=== PATIENT | female | born 1965 | race Caucasian/White ===

== ENCOUNTER → 2020-05-23 14:31 | Outpatient (BNVA) | payer BC, SELFPAY | PROVIDERS: PCP Family Medicine; Referring Provider Family Medicine; Visit Provider Nurse Practitioner Family | DX: Z76.89 Persons encountering health services in other specified circumstances (principal) ==

== ENCOUNTER 2020-09-12 07:12 | Emergency (ER) | payer BC, SELFPAY ==
--- NOTE | 2020-09-12 08:15 | XR_ITS ---
EXAMINATION: LEFT FOOT AND ANKLE X-RAY CLINICAL INFORMATION: Pain post fall COMPARISON: None TECHNIQUE: 3 views of the left foot and 3 views of the left ankle FINDINGS: Left foot: There are postoperative osteotomy changes of the first metatarsal head. No fracture or dislocation is seen. There are mild degenerative changes of the PIP joint of the fifth toe. There is a small calcaneal spur at the Achilles tendon insertion. Left ankle: Bone alignment is normal. No fracture or dislocation is seen. The ankle mortise is normal. Soft tissues are normal. XR/XR ankle LT 2V IMPRESSION: Left foot: Postoperative change from first metatarsal head osteotomy. Degenerative changes at the PIP joint of the fifth toe. Small calcaneal spur at the Achilles tendon insertion. Left ankle: Unremarkable exam.
--- NOTE | 2020-09-12 08:15 | XR_ITS ---
EXAMINATION: LEFT FOOT AND ANKLE X-RAY CLINICAL INFORMATION: Pain post fall COMPARISON: None TECHNIQUE: 3 views of the left foot and 3 views of the left ankle FINDINGS: Left foot: There are postoperative osteotomy changes of the first metatarsal head. No fracture or dislocation is seen. There are mild degenerative changes of the PIP joint of the fifth toe. There is a small calcaneal spur at the Achilles tendon insertion. Left ankle: Bone alignment is normal. No fracture or dislocation is seen. The ankle mortise is normal. Soft tissues are normal. XR/XR foot LT min 3V IMPRESSION: Left foot: Postoperative change from first metatarsal head osteotomy. Degenerative changes at the PIP joint of the fifth toe. Small calcaneal spur at the Achilles tendon insertion. Left ankle: Unremarkable exam.
[2020-09-12 09:03] VITALS: BP 103/67; PULSE 76; RESP 16; TEMP 37.2; O2SAT 98; BMI 38.7
--- NOTE | 2020-09-12 09:13 | ED.LOWEXIN ---
HPI - Extremity Injury (Lower) General Chief Complaint: Extremity Injury, Lower <Ehsan Romo NP - Last Filed: 09/12/20 09:20> Stated Complaint: fall, lt ft injury <Ehsan Romo NP - Last Filed: 09/12/20 09:20> Time Seen by Provider: 09/12/20 08:15 <Ehsan Romo NP - Last Filed: 09/12/20 09:20> Source: family <Ehsan Romo NP - Last Filed: 09/12/20 09:20> Mode of arrival: wheelchair <Ehsan Romo NP - Last Filed: 09/12/20 09:20> Limitations: no limitations <Ehsan Romo NP - Last Filed: 09/12/20 09:20> History of Present Illness HPI Narrative: Super fall onto the left foot while going for cigarette. Denies any other injury. Pain only in the left foot ankle area. <Ehsan Romo NP - Last Filed: 09/12/20 09:20> MD complaint: foot injury <Ehsan Romo NP - Last Filed: 09/12/20 09:20> Onset (ago): minute(s) <Ehsan Romo NP - Last Filed: 09/12/20 09:20> Type of Injury: unknown <Ehsan Romo NP - Last Filed: 09/12/20 09:20> Place: home <Ehsan Romo NP - Last Filed: 09/12/20 09:20> Severity: moderate <Ehsan Romo NP - Last Filed: 09/12/20 09:20> Relieving factors: cold therapy and immobilization <Ehsan Romo NP - Last Filed: 09/12/20 09:20> Exacerbating factors: movement <Ehsan Romo NP - Last Filed: 09/12/20 09:20> Context: fall <Ehsan Romo NP - Last Filed: 09/12/20 09:20> Other symptoms: none <Ehsan Romo NP - Last Filed: 09/12/20 09:20> Related Data Home Medications: Home Medications Medication Instructions Recorded Confirmed atorvastatin 10 mg tablet 10 mg PO QPM 05/18/20 05/18/20 Previous Rx's Medication Instructions Recorded peg 3350-electrolytes 227.1 240 ml PO Q10M #1 ea 05/25/20 gram-21.5 gram-6.36gram oral powder packet levothyroxine 200 mcg tablet 200 mcg PO DAILY 90 Days #90 tab 06/11/20 paroxetine HCl 40 mg tablet 40 mg PO DAILY 90 Days #90 tab 08/19/20 fluticasone 250 mcg-salmeterol 50 1 ea PO BID #60 ea 08/29/20 mcg/dose blistr powdr for inhalation <Ehsan Romo NP - Last Filed: 09/12/20 09:20> Allergies/Adverse Reactions: Allergies Allergy/AdvReac Type Severity Reaction Status Date / Time No Known Allergies Allergy Verified 05/23/20 15:16 <Ehsan Romo NP - Last Filed: 09/12/20 09:20> Review of Systems Review of Systems: Constitutional: No Weight loss, No Fever, No Chills, No Night Sweats, No Fatigue, No Malaise ENT/Mouth: No Hearing loss, No Ear Pain, No Nasal Congestion, No Sinus Pain, No Hoarseness, No sore throat, No Rhinorrhea, No Swallowing Difficulty Eyes: No Eye Pain, No Swelling, No Redness, No Foreign Body, No Discharge, No Vision Changes Cardiovascular: No Chest Pain, No SOB, No Dyspnea on Exertion, No Orthopnea, No Edema, No Palpitations Respiratory: Negative Gastrointestinal: Negative Genitourinary: Negative Musculoskeletal: No joint pain, No Myalgias, No Joint Swelling, left foot pain status post fall as noted HPI Skin: No Skin Lesions, No rash Neuro: No Weakness, No Numbness, No Paresthesias, No Loss of Consciousness, No Dizziness, No Headache Psych: No Social Issues Heme/Lymph: Negative Endocrine: Negative <Ehsan Romo NP - Last Filed: 09/12/20 09:20> Yes all other systems are reviewed and are negative <Ehsan Romo NP - Last Filed: 09/12/20 09:20> [facility] Past Medical History Medical History: Medical History (Updated 09/12/20 @ 09:20 by Ehsan Romo NP) Fatty liver Hyperlipidemia Hypothyroidism <Ehsan Romo NP - Last Filed: 09/12/20 09:20> Surgical History: Surgical History ([facility]23[facility]20 [facility] 14:11 [facility] H/O foot surgery History of cholecystectomy History of tonsillectomy History of tubal ligation <Ehsan Romo NP - Last Filed: 09/12/20 09:20> Family History Family History: Family History (Updated 05/23/20 @ 13:52 [facility] Father No problems noted. Mother Lung cancer Smoker Maternal Grandmother Breast CA <Ehsan Romo NP - Last Filed: 09/12/20 09:20> Social History Social History: Social History (Updated 05/23/20 @ 15:18 by Renea Lagunas [facility]) Alcohol intake: never Smoking Status: Current every day smoker Tobacco Type: Cigarette Cigarettes Per Day: 10 Smoked in Last 30 Days: Yes Use of substances other than those prescribed or required for medical reasons: No Advance Directives: No Advance Directives Information Provided: No <Ehsan Romo NP - Last Filed: 09/12/20 09:20> Physical Exam Vital Signs: Vital Signs: Last Vital Signs Temp 99.0 F 09/12/20 09:03 Pulse 76 09/12/20 09:03 Resp 16 09/12/20 09:03 BP 103/67 09/12/20 09:03 Pulse Ox 98 09/12/20 09:03 Body Mass Index 38.7 Reviewed <Ehsan Romo NP - Last Filed: 09/12/20 09:20> Vital Signs: Last Vital Signs Temp 99.0 F 09/12/20 09:03 Pulse 76 09/12/20 09:03 Resp 16 09/12/20 09:03 BP 103/67 09/12/20 09:03 Pulse Ox 98 09/12/20 09:03 Body Mass Index 38.7 <Malik Ventura MD - Last Filed: 09/12/20 11:29> Const: General: cooperative and healthy appearing; No acute distress or intoxicated appearing <Ehsan Romo NP - Last Filed: 09/12/20 09:20> Nutritional Appearance: average body habitus <Ehsan Romo NP - Last Filed: 09/12/20 09:20> Orientation/consciousness: patient oriented x3 <Ehsan Romo NP - Last Filed: 09/12/20 09:20> HENMT: Head: Yes normal to inspection <[facility] - Last Filed: 09/12/20 09:20> Ears: hearing grossly normal bilaterally <[facility] - Last Filed: 09/12/20 09:20> Eyes: General: appearance normal, both eyes and all related structures <[facility] Last Filed: 09/12/20 09:20> Visual Hutchins: normal visual hutchins by confrontation <[facility] - Last Filed: 09/12/20 09:20> Neck: Neck: Yes normal visual inspection, No positive Brudzinski's sign, No positive Kernig's sign and No tender <[facility] - Last Filed: 09/12/20 09:20> Thyroid: Thyroid normal <[facility] - Last Filed: 09/12/20 09:20> Chest: Chest palpation & inspection: normal inspection of the chest <[facility] Last Filed: 09/12/20 09:20> Resp: Effort & Inspection: normal respiratory effort <[facility] - Last Filed: 09/12/20 09:20> Cardio: Jugular venous distension: no JVD <[facility] - Last Filed: 09/12/20 09:20> : General: Yes no CVA tenderness <[facility] - Last Filed: 09/12/20 09:20> Back/Spine/Pelvis: Back: no CVA tenderness <[facility] Last Filed: 09/12/20 09:20> Skin: General skin exam: no rashes or lesions noted <[facility] - Last Filed: 09/12/20 09:20> Neuro: General: patient oriented x3 <[facility] - Last Filed: 09/12/20 09:20> Extrem: General: Yes normal to inspection <[facility] Romo - Last Filed: 09/12/20 09:20> Course Course Course Narrative: I have reviewed the chart <Malik Ventura MD - Last Filed: 09/12/20 11:29> MDM - Extremity Injury (Lower) MDM Narrative Medical decision making narrative: AP consistent with strain/contusion type injury to the left foot. X-rays of ankle foot negative for acute pathology. X-ray of crutches and supportive care return follow-up precautions. Given that were in the middle of the winter I did review with her safety as it relates to the crutch use. <Ehsan Romo NP - Last Filed: 09/12/20 09:20> Differential Diagnosis Differential diagnosis: Likely ankle sprain and strain; Unlikely fracture of toe and ankle fracture <Ehsan Romo NP - Last Filed: 09/12/20 09:20> Medical Records Attestation: I reviewed the patient's medical records. <Ehsan Romo NP - Last Filed: 09/12/20 09:20> Lab Data Attestation: I reviewed the patient's lab results. <Ehsan Romo NP - Last Filed: 09/12/20 09:20> Imaging Data Ankle/foot: Radiologist's impression: [address] [id number] ReportSigned Patient: Irving Rose#: [id number]: 1965Acct:[id number]/Sex: 55 / FADM Date: 09/12/20Loc: EDAttending Dr: Ordering Physician: Ehsan Romo NP Date of Service: 09/12/20 Procedure(s): XR ankle LT 2V Accession Number(s): [id number] cc: Ehsan Romo NP~ EXAMINATION: LEFT FOOT AND ANKLE X-RAY CLINICAL INFORMATION: Pain post fall COMPARISON: None TECHNIQUE: 3 views of the left foot and 3 views of the left ankle FINDINGS: Left foot: There are postoperative osteotomy changes of the first metatarsal head. No fracture or dislocation is seen. There are mild degenerative changes of the PIP joint of the fifth toe. There is a small calcaneal spur at the Achilles tendon insertion. Left ankle: Bone alignment is normal. No fracture or dislocation is seen. The ankle mortise is normal. Soft tissues are normal. XR/XR ankle LT 2V IMPRESSION: Left foot: Postoperative change from first metatarsal head osteotomy. Degenerative changes at the PIP joint of the fifth toe. Small calcaneal spur at the Achilles tendon insertion. Left ankle: Unremarkable exam. Dictated By:VIRI BROWN MDSigned By:<Electronically signed by VIRI BROWN MD in OV>09/12/20901 DD/ TD/TT: Harvest Worker: SHAJI <Ehsan Romo NP - Last Filed: 09/12/20 09:20> Discharge Plan Discharge Clinical Impression: Strain of foot <Ehsan Romo NP - Last Filed: 09/12/20 09:20> Patient Disposition: Home, Self-Care <Ehsan Romo NP - Last Filed: 09/12/20 09:20> Instructions: Ankle Strain (ED) <Ehsan Romo NP - Last Filed: 09/12/20 09:20> Additional Instructions: Cold compresses Gentle stretching Hira wrap for comfort Crutches for comfort Return if any concerns or worsening symptoms [id number] Tylenol/ibuprofen for pain discomfort Thank you <Ehsan Romo NP - Last Filed: 09/12/20 09:20> Prescriptions: No Action Golytely 227.1-21.5-6.36 gram powder in packet 240 ml PO Q10M Qty: 1 RF: 0 levothyroxine 200 mcg tablet 200 mcg PO DAILY 90 Days Qty: 90 RF: 4 paroxetine HCl [Paxil] 40 mg tablet 40 mg PO DAILY 90 Days Qty: 90 RF: 3 fluticasone propion-salmeterol [Wixela Inhub] 250-50 mcg/dose blister with device 1 ea PO BID Qty: 60 RF: 4 atorvastatin 10 mg tablet 10 mg PO QPM RF: 0 <Ehsan Romo NP - Last Filed: 09/12/20 09:20> Referrals: Jone Lomeli MD [Primary Care Provider] - 1 week <Ehsan Romo NP - Last Filed: 09/12/20 09:20> Interventions: ED Discharge Assessment Last Done: 09/12/20 09:40 <Ehsan Romo NP - Last Filed: 09/12/20 09:20> Discharge Date/Time: 09/12/20 09:40 <Ehsan Romo NP - Last Filed: 09/12/20 09:20>
== END 2020-09-12 09:40 | disposition home or self-care (01) ==
PROVIDERS: Emergency Provider Emergency Medicine; PCP Family Medicine
DX: S96.912A Strain of unspecified muscle and tendon at ankle and foot level, left foot, initial encounter (principal); W01.0XXA Fall on same level from slipping, tripping and stumbling without subsequent striking against object, initial encounter; M77.32 Calcaneal spur, left foot; F17.210 Nicotine dependence, cigarettes, uncomplicated; Y93.89 Activity, other specified; Y92.017 Garden or yard in single-family (private) house as the place of occurrence of the external cause; Y99.9 Unspecified external cause status
CPT/HCPCS: 73600; 73630; 99283

== ENCOUNTER 2021-02-14 14:48 | Outpatient (REF) | payer BC, SELFPAY ==
--- NOTE | ~2021-02-14 | MM_ITS ---
EXAMINATION: MM SCREENING DIGITAL BREAST TOMOSYNTHESIS, BILATERAL CLINICAL INFORMATION: Screening. Asymptomatic. The lifetime risk of breast cancer based on the Tyrer-Cuzick Model is 10.8%. COMPARISON: Mammography: September 17, 2019 and studies dating back to October 24, 2011 TECHNIQUE: Digital breast tomosynthesis is performed in both the craniocaudal and mediolateral oblique views along with computer-aided detection (CAD). Synthesized 2D images are generated from the tomosynthesis. FINDINGS: The breasts are heterogeneously dense, which may obscure small masses (ACR BI-RADS breast composition Category c). There are no significant masses, abnormal calcifications, or other abnormalities. MM/MM tomosynthesis screening BI IMPRESSION: There are no significant changes from prior study. ASSESSMENT: BI-RADS 1: Negative RECOMMENDATION: Routine annual mammography screening. This patient's information was entered into a reminder system with a target due date for their next mammogram.
== END 2021-02-14 14:49 | disposition home or self-care (01) ==
LOC: HO.MAMMO 14:48
PROVIDERS: PCP Family Medicine; Visit Provider Family Medicine
DX: Z12.31 Encounter for screening mammogram for malignant neoplasm of breast (principal)
CPT/HCPCS: 77063; 77067

== ENCOUNTER 2021-04-13 08:47 | Outpatient (REF) | payer BC, SELFPAY ==
[2021-04-13 10:57] LABS: Alanine Aminotransferase 27 U/L (0-31); Albumin Level 4.2 g/dL (3.5-5.0); Alkaline Phosphatase 108 U/L (39-117); Anion Gap 13 (12-20); Aspartate Amino Transferase 24 U/L (5-31); Bilirubin Total 1.1 mg/dL (0.0-1.0); Blood Urea Nitrogen 13 mg/dL (9-16); Carbon Dioxide 28 mmol/L (22-29); Chloride 106 mmol/L (96-108); Cholesterol 169 mg/dL; Estimated Glomerular Filt Rate 52; Glucose Fasting 91 mg/dL (60-99); HDL Cholesterol 37 mg/dL; LDL Cholesterol Calculated 103 mg/dl; Potassium 5.4 mmol/L (3.3-5.1); Sodium 142 mmol/L (135-145); Total Protein 6.5 g/dL (6.5-8.0); Triglycerides 146 mg/dL
[2021-04-13 10:58] LABS: Glucose Urine UA NEG (NEG); Leukocyte Esterase Urine NEG (NEG); Nitrite Urine NEG (NEG); Urine Blood NEG (NEG); Urine Ketones NEG (NEG); Urine Protein NEG (NEG-TRACE)
[2021-04-13 11:02] LABS: Appearance Urine CLEAR; Color Urine YELLOW
[2021-04-13 11:17] LABS: TSH reflex Free T4 0.79 uIU/mL (0.32-4.0)
== END 2021-04-13 08:48 | disposition home or self-care (01) ==
LOC: HO.LAB 08:47
PROVIDERS: PCP Family Medicine; Visit Provider Family Medicine
DX: Z00.00 Encounter for general adult medical examination without abnormal findings (principal)
CPT/HCPCS: 36415; 80053; 80061; 81003; 84443

== ENCOUNTER 2021-05-27 11:09 | Day surgery (SDC) | payer BC, SELFPAY ==
[2021-05-22 09:58] VITALS: BMI 37.9
--- NOTE | 2021-05-23 14:09 | HO.ANESPROP2 ---
Documented by User: Bethany Moon NP 05/23/21 14:09 HPI - Anesthesia Eval Consult details Narrative: 56yo F for Colonoscopy PMFSH Active Problems Active Problems: All Active Problems (Updated 05/22/21 @ 10:02 by Tia Baker, KENDELL) Moderate left ankle sprain (Acute) Annual visit for general adult medical examination without abnormal findings (Acute) Breast cancer screening by mammogram (Acute) Screening for colon cancer (Acute) Skin tag (Acute) Constipation (Acute) Diarrhea (Acute) RUQ abdominal tenderness (Acute) Hyperlipidemia (Acute) Hypothyroidism (Acute) Past Medical History Medical History Anxiety Asthma Fatty liver Hyperlipidemia Hypothyroidism Smoker Family History Family History Father No problems noted. 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 Meds Allergies Allergy/AdvReac Type Severity Reaction Status Date / Time No Known Allergies Allergy Verified 05/22/21 09:50 Home Medications Medication Instructions Recorded Confirmed Last Taken Type peg 3350-electrolytes 227.1 240 ml PO Q10M ea 09/27/20 Unknown History gram-21.5 gram-6.36gram oral powder packet (Golytely) Exam Exam Date and Time: May 23, 2021 1409 Height,Weight and Vital Signs: Height 5 ft 6 in Weight 106.594 kg Assessment and Plan Assessment Anesthesia Assessment: Chart Reviewed Documented by User: Aster Taylor MD 05/27/21 12:51 PMFSH Past Medical History Medical History Anxiety Asthma Fatty liver Hyperlipidemia Hypothyroidism Smoker Functional capacity: independent ambulation Patient : No Family History Family History Father No problems noted. Mother Lung cancer Smoker Maternal Grandmother Breast CA Family history of problems with anesthesia: No Surgical History Surgical History H/O foot surgery History of cholecystectomy History of tonsillectomy History of tubal ligation Social History Social History Housing: House Alcohol intake: never Patient Tobacco Use Status: Current everyday Tobacco user Tobacco use type: Cigarette Cigarettes Per Day: 7 Years Smoked: 35 Are you DNR?: No Advance Directives: No (will bring HCP) Advance Directives Information Provided: No Advance Directives on File: No Patient : No Current occupational status: employed 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
[2021-05-27 12:15] VITALS: BP 122/75; PULSE 74; RESP 18; TEMP 36.2; O2SAT 96
[2021-05-27] MEDS: Lactated Ringers 1,000 ML 100 ML IVCONT (12:19)
--- NOTE | 2021-05-27 12:32 | MHC.SHP ---
Pre-Procedural Eval Section A Date of Service: 05/27/21 Section B Chief Complaint: screening Relevant Family History (Specify if Yes): No Relevant Social History: Tobacco Use Present Medications: see Short Stay Collaborative assessment Medical History: Significant History (Anxiety Asthma Fatty liver Hyperlipidemia Hypothyroidism Smoker) History of Previous Operations: Relevant previous surgery/procedure and date(s) (H/O foot surgery History of cholecystectomy History of tonsillectomy History of tubal ligation) Allergies: Allergies Allergy/AdvReac Type Severity Reaction Status Date / Time No Known Allergies Allergy Verified 05/22/21 09:50 Review of Systems Sugical H&P ROS: Negative: Constitution, Cardiovascular, Respiratory, Neurological, Psychiatric, Hem-Onc, Allergic/Immunologic, Gastrointestinal, Genitourinary, Musculoskeletal, Integumentary, Endocrine and Eyes/Ears/Nose/Throat Exam Surgical H&P Exam: Normal: HEENT, Normal: Heart, Normal: Lungs, Normal: Extremities, Normal: Abdomen, Normal: Skin and Normal: Neurological Plan Diagnosis/Plan: Unchanged I have reviewed the history and physical and performed a pertinent physical examination on my patient. No changes have occurred unless specified.
[2021-05-27 12:52] LABS: Potassium 4.4 mmol/L (3.3-5.1)
--- NOTE | 2021-05-27 13:00 | P.OP_ITS ---
Operative Note Operative Note Date of Service: 05/27/21 Narrative: Operative Information Procedure Description: Colonoscopy COLONOSCOPY Instrument: Olympus variable stiffness pediatric scope 190L Colonoscopy Monitoring: Vital signs and clinical assessment, continuous EKG monitoring, Pulse oximetry, Carbon Dioxide monitoring and blood pressure monitoring were done throughout the procedure. Colon withdrawal time was 9 minutes. Procedure: The patient was placed in the left lateral decubitis position and pre-procedure medications were administered. After a digital rectal examination of the ano-rectum, the video colonoscope was inserted into the rectum and advanced through the colon to the cecum/TI. The colonoscope was slowly withdrawn in a retrograde panoramic fashion and the colon mucosa was carefully examined including a retroflexed view of the rectum. Findings and interventions are described below. Procedure Difficulty: easy Findings: Terminal Ileum-normal Cecum:normal Ascending Colon: normal Transverse Colon -normal Descending Colon: 10 mm sessile polyp removed with cold snare Sigmoid Colon: normal Rectum: Retroflexion with small internal hemorrhoids, grade I Anorectum - normal Colon preparation: [place] Bowel Preparation Scale Right colon; 2 Transverse colon: 1 Left colon; 1 (0 = Unprepared colon segment with mucosa not seen due to solid stool that cannot be cleared. 1 = Portion of mucosa of the colon segment seen, but other areas of the colon segment not well seen due to staining, residual stool and/or opaque liquid. 2 = Minor amount of residual staining, small fragments of stool and/or opaque liquid, but mucosa of colon segment seen well. 3 = Entire mucosa of colon segment seen well with no residual staining, small fragments of stool or opaque liquid) Impression and Post Procedure Diagnosis: polyp internal hemorrhoids Plan: High fiber diet leaflet Avoid straining at stool, epsom salts and sitz bath, anusol supps or cream Repeat Colonoscopy in 1-2 years due to poor prep or earlier if clinically indicated. Next time consider 2 days of clear liquid diet Above findings were reviewed with the patient and relevant handouts were provided if indicated.
--- NOTE | 2021-05-27 13:00 | PM.OP ---
Brief Operative Note Date of Service: 05/27/21 Pre-op diagnosis: screening colon Post-op diagnosis: same Procedure: see op note Surgeon: Merlene Ramírez MD Anesthesia: MAC Was an Key Account Coordinator used for this Procedure?: No Estimated blood loss (mL): 0 Condition: stable Disposition: PACU
[2021-05-27 13:08] VITALS: BP 103/60; PULSE 69; RESP 16; TEMP 36.2; O2SAT 97
[2021-05-27 13:23] VITALS: BP 115/66; PULSE 66; RESP 16; TEMP 36.2; O2SAT 97
--- NOTE | 2021-05-27 14:05 | HO.POSTANES ---
Post Anesthesia Evaluation Post Anesthesia Evaluation Vital Signs: Vital Signs Temp Pulse Resp BP Pulse Ox 05/27/21 13:23 97.2 F 66 16 115/66 97 05/27/21 13:08 97.2 F 69 16 103/60 97 05/27/21 12:15 97.2 F 74 18 122/75 96 Anesthesia: Monitored Mental Status: Awake Pain Control: Satisfactory Nausea/Vomiting: None Hydration: Adequate Anesthesia-Related Issues: No Anes. Related Issues
== END 2021-05-27 14:06 | disposition home or self-care (01) ==
PROVIDERS: Nurse Practitioner; PCP Family Medicine; Visit Provider Internal Medicine Gastroenterology
PROC: 0DJD8ZZ Inspection of Lower Intestinal Tract, Via Natural or Artificial Opening Endoscopic (ICD-10-PCS; CPT 45378; principal; 2021-05-27 12:30)
DX: Z12.11 Encounter for screening for malignant neoplasm of colon (principal); D12.4 Benign neoplasm of descending colon; K64.0 First degree hemorrhoids
CPT/HCPCS: 45385; 36415; 84132; 88305

== ENCOUNTER → 2021-06-10 11:38 | Outpatient (BNVA) | payer BC, SELFPAY | PROVIDERS: PCP Family Medicine; Visit Provider Nurse Practitioner Family ==

== ENCOUNTER 2021-08-26 09:17 | Outpatient (REF) | payer BC, SELFPAY ==
[2021-08-26 12:19] LABS: Free T4 (Free Thyroxine) 1.17 ng/dL (0.71-1.85); Thyroid Stimulating Hormone 0.79 uIU/mL (0.32-4.0)
[2021-08-27 04:06] LABS: Triiodothyronine T3 Total 91 ng/dL (76-181)
== END 2021-08-26 09:18 | disposition home or self-care (01) ==
LOC: HO.WFDLDS 09:17
PROVIDERS: Visit Provider Family Medicine
DX: E03.9 Hypothyroidism, unspecified (principal)
CPT/HCPCS: 36415; 84439; 84443; 84480

== ENCOUNTER → 2021-12-30 16:16 | Outpatient (BNVA) | payer BC, SELFPAY | PROVIDERS: PCP Family Medicine; Referring Provider Family Medicine; Visit Provider Nurse Practitioner Family | DX: K59.01 Slow transit constipation (principal) ==

== ENCOUNTER 2022-04-18 13:05 | Outpatient (REF) | payer BC, SELFPAY ==
--- NOTE | ~2022-04-18 | US_ITS ---
EXAMINATION: US ABDOMEN COMPLETE CLINICAL INFORMATION: Right upper quadrant abdominal tenderness. COMPARISON: None TECHNIQUE: Real-time imaging of the abdominal viscera. FINDINGS: PANCREAS: Normal. ABDOMINAL AORTA: The proximal, mid, and distal segments are normal in caliber. INFERIOR VENA CAVA: Visualized portions are normal. LIVER: The liver is normal in size. The liver contour is normal. Liver echotexture is increased. No focal hepatic lesion. There is no intrahepatic biliary duct dilatation seen. GALLBLADDER: Surgically absent. COMMON BILE DUCT: Normal in caliber measuring 0.6 cm in diameter. RIGHT KIDNEY: Normal. No hydronephrosis. No renal calculi or focal parenchymal lesions. The kidney measures 10.0 cm in maximum dimension. LEFT KIDNEY: There is a 6 mm cyst in the lower pole. No hydronephrosis or renal calculi. The kidney measures 11.3 cm in maximum dimension. SPLEEN: Slightly enlarged. The spleen measures 14.1 cm in maximum dimension. FREE FLUID: None. US/US abdomen complete IMPRESSION: Echogenic liver probably representing fatty infiltration. Slightly enlarged spleen. Small left renal cyst.
== END 2022-04-18 13:06 | disposition home or self-care (01) ==
LOC: HO.US 13:05
PROVIDERS: Visit Provider Nurse Practitioner Family
DX: R10.811 Right upper quadrant abdominal tenderness (principal)
CPT/HCPCS: 76700

== ENCOUNTER 2022-05-06 15:43 | Outpatient (REF) | payer BC, SELFPAY ==
--- NOTE | ~2022-05-06 | MM_ITS ---
EXAMINATION: MM SCREENING DIGITAL BREAST TOMOSYNTHESIS, BILATERAL CLINICAL INFORMATION: Screening. Asymptomatic. The lifetime risk of breast cancer based on the Tyrer-Cuzick Model is 13%. COMPARISON: Mammography: 02/14/2021, 09/17/2019; outside mammography 04/12/2016, 03/22/2016 ([place], [place]). TECHNIQUE: Digital breast tomosynthesis is performed in both the craniocaudal and mediolateral oblique views along with computer-aided detection (CAD). Synthesized 2D images are generated from the tomosynthesis. FINDINGS: The breasts are heterogeneously dense, which may obscure small masses (ACR BI-RADS breast composition Category c). There are no significant masses, abnormal calcifications, or other abnormalities. Parenchymal pattern is similar to prior studies. There is no developing density or architectural abnormality. Small circumscribed nodule posterior central left breast upper outer quadrant similar to prior exams dating back to 2016. The axilla and skin contours are unremarkable. No significant changes. MM/MM tomosynthesis screening BI IMPRESSION: No mammographic evidence of malignancy. ASSESSMENT: BI-RADS 2: Benign RECOMMENDATION: Routine annual mammography screening. This patient's information was entered into a reminder system with a target due date for their next mammogram.
== END 2022-05-06 15:44 | disposition home or self-care (01) ==
LOC: HO.MAMMO 15:43
PROVIDERS: PCP Family Medicine; Visit Provider Family Medicine
DX: Z12.31 Encounter for screening mammogram for malignant neoplasm of breast (principal)
CPT/HCPCS: 77063; 77067

== ENCOUNTER 2022-05-30 06:02 | Outpatient (REF) | payer BC, SELFPAY ==
[2022-05-30 07:11] LABS: Alanine Aminotransferase 17 U/L (0-31); Albumin Level 4.3 g/dL (3.5-5.0); Alkaline Phosphatase 111 U/L (39-117); Anion Gap 17 (12-20); Aspartate Amino Transferase 17 U/L (5-31); Bilirubin Total 0.8 mg/dL (0.0-1.0); Blood Urea Nitrogen 13 mg/dL (9-16); Calcium 9.7 mg/dL (8.4-10.2); Carbon Dioxide 25 mmol/L (22-29); Chloride 105 mmol/L (96-108); Cholesterol 173 mg/dL; Estimated Glomerular Filt Rate 58; Glucose Fasting 103 mg/dL (60-99); HDL Cholesterol 41 mg/dL; LDL Cholesterol Calculated 106 mg/dl; Lipase 39 U/L (8-78); Potassium 4.6 mmol/L (3.3-5.1); Sodium 142 mmol/L (135-145); Total Protein 6.6 g/dL (6.5-8.0); Triglycerides 134 mg/dL
[2022-05-30 07:33] LABS: HBS Num1 1.74 mIU/mL (0-7.99); HBc Num1 0.03 S/CO (0.00-0.79); HBsAGNum1 0.15 S/CO (0.00-0.99); HIV AB/AG Nonreactive (Nonreactive); HIV Num 1 0.09 S/CO (0.00-0.99); Hepatitis A Antibody IgM 0.17 Index (0-0.79); Hepatitis B Core Antibody Nonreactive (Nonreactive); Hepatitis B Surface Antigen Negative (Negative); ~HepC Num1 0.08 S/CO (0.00-0.79); ~Hepatitis A Antibody IgM Nonreactive (Nonreactive); ~Hepatitis B Surface Antibody NONREACTIVE (Nonreactive); ~Hepatitis C Antibody Nonreactive (Nonreactive)
[2022-05-30 07:35] LABS: Free T4 (Free Thyroxine) 1.13 ng/dL (0.71-1.85); Thyroid Stimulating Hormone 2.92 uIU/mL (0.32-4.0)
[2022-05-30 07:37] LABS: Estimated Average Glucose 97 mg/dL
[2022-05-30 07:48] LABS: Appearance Urine Clear; Color Urine Yellow; Glucose Urine UA Negative (Negative); Leukocyte Esterase Urine Negative (Negative); Nitrite Urine Negative (Negative); Urine Blood Negative (Negative); Urine Ketones Negative (Negative); Urine Protein Negative (Neg-Trace)
[2022-06-01 15:11] LABS: Triiodothyronine T3 Total 111 ng/dL (76-181)
[2022-06-03 05:43] LABS: Transglutaminase Ab IgG <1.0 U/mL; Transglutaminase IgA <1.0 U/mL
[2022-06-04 01:37] LABS: FIB-ALT 17 U/L (6-29); FIB-Alpha-2-Macroglobulin 181 mg/dL (106-279); FIB-Apolipoprotein A1 152 mg/dL (101-198); FIB-GGT 25 U/L (3-70); FIB-Haptoglobin 203 mg/dL (43-212); FIB-Total Bilirubin 0.6 mg/dL (0.2-1.2); Liver Fibrosis Score 0.14; Liver Fibrosis Stage F0; Nec Inflam Act Grade A0; Nec Inflam Act Score 0.05
== END 2022-05-30 06:03 | disposition home or self-care (01) ==
LOC: HO.LAB 06:02
PROVIDERS: Absent Provider Family Medicine; PCP Family Medicine; Visit Provider Nurse Practitioner Family
DX: Z00.00 Encounter for general adult medical examination without abnormal findings (principal); Z11.4 Encounter for screening for human immunodeficiency virus [HIV]; E03.9 Hypothyroidism, unspecified; R74.8 Abnormal levels of other serum enzymes; R10.9 Unspecified abdominal pain; R79.89 Other specified abnormal findings of blood chemistry; E11.9 Type 2 diabetes mellitus without complications
CPT/HCPCS: 36415; 80053; 80061; 81003; 81596; 83036; 83690; 84439; 84443; 84480; 86364; 86704; 86706; 86709; 86803; 87340; 87389

== ENCOUNTER 2022-05-31 10:17 | Outpatient (REF) | payer BC, SELFPAY ==
[2022-06-09 17:56] LABS: Pancreatic Elastase-1 78 mcg/g
== END 2022-05-31 10:18 | disposition home or self-care (01) ==
LOC: HO.LNP 10:17
PROVIDERS: Visit Provider Nurse Practitioner Family
DX: R10.9 Unspecified abdominal pain (principal)
CPT/HCPCS: 82656

== ENCOUNTER 2022-07-14 13:42 | Emergency (ER) | payer BC, SELFPAY ==
--- NOTE | ~2022-07-14 | CT_ITS ---
EXAMINATION: CT ABDOMEN AND PELVIS WITHOUT CONTRAST CLINICAL INFORMATION: Lower abdominal pain COMPARISON: Ultrasound abdomen complete dated 04/18/2022 TECHNIQUE: Multidetector volumetric imaging was performed from the superior aspect of the liver through the pubic symphysis. Sagittal and coronal reformatted images were obtained on the technologist's workstation. This CT examination was performed using dose optimization techniques as appropriate, variously including the following: *Automated exposure control *Adjustment of mA and/or kV according to patient size (this includes techniques or standardized protocols for targeted exams where dose is matched to indication/reason for exam; i.e. extremities or head) *Use of iterative reconstruction technique DLP: 1042 mGy-cm FINDINGS: LUNG BASES: The visualized lung bases are unremarkable. LIVER, GALLBLADDER, AND BILIARY TREE: Mild hepatic steatosis. No focal hepatic lesion. There is no intrahepatic biliary dilatation. Liver however is prominent, cephalocaudad dimension, at approximately 22 cm. The gallbladder is surgically absent. PANCREAS: Unremarkable. SPLEEN: The spleen is mildly prominent. No splenic lesion or perisplenic collection. ADRENAL GLANDS: Unremarkable. KIDNEYS AND URETERS: The kidneys are normal in size, shape, and attenuation. No hydronephrosis, hydroureter, or calculi seen. No perinephric stranding. BLADDER: Unremarkable. GASTROINTESTINAL TRACT: No bowel obstruction or right or left lower quadrant inflammatory change. The appendix is not identified. ABDOMINAL WALL: Small fat-containing ventral hernia. Bowel does not participate. LYMPH NODES: Normal. VASCULAR: Aorta is atherosclerotic but nonaneurysmal. PELVIC VISCERA: Unremarkable. OSSEOUS STRUCTURES: There is advanced degenerative change at the lumbosacral junction, with grade 2 forward spondylolisthesis L5 upon S1. No fracture or destructive lesion. CT/CT abdomen pelvis wo IV con IMPRESSION: Hepatosplenomegaly. Fatty liver. No acute abnormality.
[2022-07-14 14:50] VITALS: BP 122/81; PULSE 79; RESP 18; TEMP 36; O2SAT 96; BMI 38.7
--- NOTE | 2022-07-14 14:50 | ED.ABDPAIN ---
HPI - Abdominal Pain General Chief Complaint: Abdominal Pain <Jennifer Tate MD - Last Filed: 07/14/22 14:55> Stated Complaint: abd and back pain <Jennifer Tate MD - Last Filed: 07/14/22 14:55> Time Seen by Provider: 07/14/22 17:29 <Jennifer Tate MD - Last Filed: 07/14/22 14:55> Source: patient <Jorge Biswas MD - Last Filed: 07/14/22 17:56> Mode of arrival: ambulatory <Jorge Biswas MD - Last Filed: 07/14/22 17:56> Limitations: no limitations <Jorge Biswas MD - Last Filed: 07/14/22 17:56> History of Present Illness HPI narrative: The patient presented to the emergency department complaining of lower abdominal pain denies any vomiting any diarrhea pain is been present since Thursday. She is followed by sales team member <Jorge Biswas MD - Last Filed: 07/14/22 17:56> MD elicited complaint: abdominal pain <Jorge Biswas MD - Last Filed: 07/14/22 17:56> Onset (ago): day(s) (3) <Jorge Biswas MD - Last Filed: 07/14/22 17:56> Pain Consistency: constant <Jorge Biswas MD - Last Filed: 07/14/22 17:56> Location: diffuse <Jorge Biswas MD - Last Filed: 07/14/22 17:56> Severity: moderate <Jorge Biswas MD - Last Filed: 07/14/22 17:56> Quality: cramping <Jorge Biswas MD - Last Filed: 07/14/22 17:56> Radiation: none <Jorge Biswas MD - Last Filed: 07/14/22 17:56> Migration to: no migration <Jorge Biswas MD - Last Filed: 07/14/22 17:56> Exacerbating factors: nothing <Jorge Biswas MD - Last Filed: 07/14/22 17:56> Relieving factors: nothing <Jorge Biswas MD - Last Filed: 07/14/22 17:56> Related Data Home Medications: Home Medications Medication Instructions Recorded Confirmed peg 3350-electrolytes 227.1 240 ml PO Q10M 09/27/20 gram-21.5 gram-6.36gram oral powder packet (Golytely) diclofenac sodium 75 mg 75 mg PO BID 08/26/21 tablet,delayed release Previous Rx's Medication Instructions Recorded albuterol sulfate 90 mcg/actuation 2 puff inhalation Q4-6H PRN 04/24/21 aerosol inhaler (ProAir HFA) shortness of breath or wheezing 30 days #8.5 grams levothyroxine 200 mcg tablet 200 mcg PO DAILY 90 days #90 tabs 08/29/21 fluticasone 250 mcg-salmeterol 50 1 ea PO BID #60 ea 10/07/21 mcg/dose blistr powdr for inhalation (Wixela Inhub) nicotine 21 mg/24 hr daily 1 patch transdermal Q24H 28 days 04/22/22 transdermal patch (Nicoderm CQ) #28 ea bisacodyl 5 mg tablet,delayed 10 mg PO ONCE 1 day #2 tabs 05/09/22 release (Dulcolax (bisacodyl)) docusate sodium 100 mg capsule 100 mg PO BEDTIME #90 caps 05/09/22 methylcellulose (laxative) 500 mg 500 mg PO DAILY #90 tabs 05/09/22 tablet (Citrucel) polyethylene glycol 3350 17 238 g PO ONCE #238 grams 05/09/22 gram/dose oral powder (Miralax) sennosides 8.6 mg tablet (Natural 8.6 mg PO BEDTIME constipation #90 05/09/22 Senna Laxative) tabs atorvastatin 10 mg tablet 10 mg PO DAILY #90 tabs 05/13/22 paroxetine HCl 40 mg tablet (Paxil) 40 mg PO DAILY 90 days #90 tabs 06/01/22 kofsof-mksrjdlw-fxuvife 1 cap PO .qid ac #120 caps 06/09/22 6,000-19,000-30,000 unit capsule,delayed rel (Creon) oxycodone 5 mg capsule 5 mg PO Q8H PRN pain #12 caps 07/14/22 <Jennifer Tate MD - Last Filed: 07/14/22 14:55> Allergies/Adverse Reactions: Allergies Allergy/AdvReac Type Severity Reaction Status Date / Time No Known Allergies Allergy Verified 07/14/22 14:52 <Jennifer Tate MD - Last Filed: 07/14/22 14:55> Review of Systems Constitutional: Reports no additional constitutional complaints <Jorge Biswas MD - Last Filed: 07/14/22 17:56> Eyes: Reports no additional eye complaints <Jorge Biswas MD - Last Filed: 07/14/22 17:56> Reports system reviewed and no additional complaints, except as documented <Jorge Biswas MD - Last Filed: 07/14/22 17:56> Cardiovascular: Reports no additional cardiovascular complaints <Jorge Biswas MD - Last Filed: 07/14/22 17:56> Respiratory: Reports no additional respiratory complaints <Jorge Biswas MD - Last Filed: 07/14/22 17:56> Gastrointestinal: Reports abdominal pain <Jorge Biswas MD - Last Filed: 07/14/22 17:56> Reports Abnormal speech present <Jorge Biswas MD - Last Filed: 07/14/22 17:56> Allergic/Immunologic: Reports no additional allergic/immunologic complaints <Jorge Biswas MD - Last Filed: 07/14/22 17:56> [facility] Past Medical History Medical History: Medical History Anxiety Asthma Fatty liver Hyperlipidemia Hypothyroidism Smoker Tubular adenoma <Jennifer Tate MD - Last Filed: 07/14/22 14:55> Surgical History: Surgical History H/O foot surgery History of cholecystectomy History of tonsillectomy History of tubal ligation Hx of colonoscopy <Jennifer Tate MD - Last Filed: 07/14/22 14:55> Family History Family History: Family History Father No problems noted. 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 Current occupational exposures/hazards: No Cognitive needs: No Hearing needs: No Vision needs: No <Jennifer Tate MD - Last Filed: 07/14/22 14:55> Physical Exam ED Vital Signs: Vital Signs - 24 hr 07/14/22 14:50 07/14/22 17:42 Temperature 96.8 F 98.3 F Pulse Rate 79 76 Respiratory Rate 18 20 Blood Pressure 122/81 125/72 Pulse Oximetry 96 97 Oxygen Delivery Method Room Air Room Air BMI result Body Mass Index 38.7 <Jennifer Tate MD - Last Filed: 07/14/22 14:55> Vital Signs - 24 hr 07/14/22 14:50 07/14/22 17:42 Temperature 96.8 F 98.3 F Pulse Rate 79 76 Respiratory Rate 18 20 Blood Pressure 122/81 125/72 Pulse Oximetry 96 97 Oxygen Delivery Method Room Air Room Air BMI result Body Mass Index 38.7 <Jorge Biswas MD - Last Filed: 07/14/22 17:56> She looks well she has no toxic-appearing <Jorge Biswas MD - Last Filed: 07/14/22 17:56> Const General: cooperative, comfortable and no acute distress <Jorge Biswas MD - Last Filed: 07/14/22 17:56> Nutritional Appearance: average body habitus and well nourished <Jorge Biswas MD - Last Filed: 07/14/22 17:56> Orientation/consciousness: patient oriented x3 <Jorge Biswas MD - Last Filed: 07/14/22 17:56> HENMT Head: Yes normal to inspection <Jorge Biswas MD - Last Filed: 07/14/22 17:56> General nose exam: Normal external nose present <Jorge Biswas MD - Last Filed: 07/14/22 17:56> Face and sinus: Yes normal facial exam <Jorge Biswas MD - Last Filed: 07/14/22 17:56> Mouth: Normal oral and palatal mucosa present <Jorge Biswas MD - Last Filed: 07/14/22 17:56> Neck Neck: Yes normal visual inspection, Yes full ROM and Yes no lymphadenopathy <Jorge Biswas MD - Last Filed: 07/14/22 17:56> Thyroid: Thyroid normal <Jorge Biswas MD - Last Filed: 07/14/22 17:56> Chest Chest palpation & inspection: normal inspection of the chest <Jorge Biswas MD - Last Filed: 07/14/22 17:56> Resp Effort & Inspection: normal respiratory effort <Jorge Biswas MD - Last Filed: 07/14/22 17:56> Auscultation: clear to auscultation bilaterally <Jorge Biswas MD - Last Filed: 07/14/22 17:56> Cardio Jugular venous distension: no JVD <Jorge Biswas MD - Last Filed: 07/14/22 17:56> Rate: regular rate <Jorge Biswas MD - Last Filed: 07/14/22 17:56> Rhythm: regular rhythm <Jorge Biswas MD - Last Filed: 07/14/22 17:56> GI Inspection: Yes normal to inspection <Jorge Biswas MD - Last Filed: 07/14/22 17:56> Palpation (GI): Soft to palpation, not firm and nontender <Jorge Biswas MD - Last Filed: 07/14/22 17:56> Auscultation: normal bowel sounds <Jorge Biswas MD - Last Filed: 07/14/22 17:56> Skin General skin exam: no rashes or lesions noted, elasticity normal and turgor normal <Jorge Biswas MD - Last Filed: 07/14/22 17:56> Lesions: no lesions <Jorge Biswas MD - Last Filed: 07/14/22 17:56> Rashes: no rashes <Jorge Biswas MD - Last Filed: 07/14/22 17:56> Trauma: no lacerations or abrasions <Jorge Biswas MD - Last Filed: 07/14/22 17:56> Wounds: no wounds <Jorge Biswas MD - Last Filed: 07/14/22 17:56> Neuro General: patient oriented x3 <Jorge Biswas MD - Last Filed: 07/14/22 17:56> Cranial nerves: Yes CN's II-XII intact bilaterally <Jorge Biswas MD - Last Filed: 07/14/22 17:56> Cognition (Neuro): normal cognition <Jorge Biswas MD - Last Filed: 07/14/22 17:56> Speech: Abnormal speech present <Jorge Biswas MD - Last Filed: 07/14/22 17:56> Gait exam (Neuro): Normal gait present <Jorge Biswas MD - Last Filed: 07/14/22 17:56> Course Course Course Narrative: 57F p/w lower abd pain crampy/sharp pain that radiates to back and worse with laying down since Thursday without N/V/fevers/chills/dysuria. VS Reviewed GEN: Mild distress 2/2 pain HEENT: NC/AT, EOMI/PERRLA, Ears wnl, throat wnl PULM: CTAB, no wheeze, rhonchi, rales CVS: RRR, no murmurs ABD: ND, lower abd pain on palpation without rebound Ext: warm, dry - labs, CT <Jennifer Tate MD - Last Filed: 07/14/22 14:55> Reevaluation(s) Reevaluation #1: She is feeling better at this time workup is negative okay to discharge home <Jorge Biswas MD - Last Filed: 07/14/22 17:56> Time: 17:42 <Jorge Biswas MD - Last Filed: 07/14/22 17:56> Medical Decision Making Medical Decision Making MDM Narrative: Patient presented with abdominal pain since Thursday with negative CT, she has no fever, she is not toxic-appearing, lactic acid was noted but the patient as history of liver disease therefore the elevation is explained because in patient with liver disease there is a decrease of clearance of the lactic acid., she has no fever, she is normotensive she is not tachycardic this is not sepsis. I really do not think we need to give IV fluids to this patient with a normal heart rate and normotensive and negative CT scan. CT scan showed hepatosplenomegaly a fatty liver disease. <Jorge Biswas MD - Last Filed: 07/14/22 17:56> Consideration of admission/observation: Consideration of Admission/Observation (I consider observation for IV fluids because the lactic acid but again this is explained by the liver disease) Escalation of care admission/observation considered: Escalation of care including admission/observation considered <Jorge Biswas MD - Last Filed: 07/14/22 17:56> Discussion of test interpretation with radiology: Discussion of test interpretation with radiology Discussed with radiology regarding test interpretation. rmal in size, shape, and attenuation. No hydronephrosis, hydroureter, or calculi seen. No perinephric stranding. ? BLADDER: Unremarkable.? GASTROINTESTINAL TRACT: No bowel obstruction or right or left lower quadrant inflammatory change. The appendix is not identified.? ABDOMINAL WALL: Small fat-containing ventral hernia. Bowel does not participate.? LYMPH NODES: Normal. VASCULAR: Aorta is atherosclerotic but nonaneurysmal. PELVIC VISCERA: Unremarkable.? OSSEOUS STRUCTURES: There is advanced degenerative change at the lumbosacral junction, with grade 2 forward spondylolisthesis L5 upon S1. No fracture or destructive lesion.? CT/CT abdomen pelvis wo IV con IMPRESSION: Hepatosplenomegaly. Fatty liver. No acute abnormality. Dictated By: Yuniel Rivers MD Signed By: <Electronically signed by Yuniel Rivers MD in [place]> 07/14/22 1628 <Jorge Biswas MD - Last Filed: 07/14/22 17:56> Discharge Plan Discharge Clinical Impression: Abdominal pain <Jennifer Tate MD - Last Filed: 07/14/22 14:55> Patient Disposition: Home, Self-Care <Jennifer Tate MD - Last Filed: 07/14/22 14:55> Instructions: Abdominal Pain (ED) <Jennifer Tate MD - Last Filed: 07/14/22 14:55> Additional Instructions: Follow-up with your primary care physician tomorrow, return if you have a fever, if you vomiting ,if you worse otherwise call your sales team member <Jennifer Tate MD - Last Filed: 07/14/22 14:55> Prescriptions: New oxycodone 5 mg capsule 5 mg PO Q8H PRN (Reason: pain) Qty: 12 0RF Rx Instructions: Partial Fill upon patient request. No Action albuterol sulfate [ProAir HFA] 90 mcg/actuation HFA aerosol inhaler 2 puff inhalation Q4-6H PRN (Reason: shortness of breath or wheezing) 30 Days Qty: 8.5 3RF levothyroxine 200 mcg tablet 200 mcg PO DAILY 90 Days Qty: 90 4RF fluticasone propion-salmeterol [Wixela Inhub] 250-50 mcg/dose blister with device 1 ea PO BID Qty: 60 4RF atorvastatin 10 mg tablet 10 mg PO DAILY Qty: 90 2RF paroxetine HCl [Paxil] 40 mg tablet 40 mg PO DAILY 90 Days Qty: 90 3RF Creon 6,000-19,000 -30,000 unit capsule,delayed release(DR/EC) 1 cap PO .qid ac Qty: 120 3RF Rx Instructions: do not exceed 10,000 unit/kg lipase per 24 hrs diclofenac sodium 75 mg tablet,delayed release (DR/EC) 75 mg PO BID Golytely 227.1-21.5-6.36 gram powder in packet 240 ml PO Q10M Label Comments: still awaiting colonoscopy Rx Instructions: until fecal effluent is clear; do not exceed a total volume tu5028 mL nicotine [Nicoderm CQ] 21 mg/24 hr patch 24 hour 1 patch transdermal Q24H 28 Days Qty: 28 2RF sennosides [Natural Senna Laxative] 8.6 mg tablet 8.6 mg PO BEDTIME Qty: 90 3RF polyethylene glycol 3350 [Miralax] 17 gram/dose powder 238 g PO ONCE Qty: 238 0RF Rx Instructions: As directed by gastroenterology department at [facility] bisacodyl [Dulcolax (bisacodyl)] 5 mg tablet,delayed release (DR/EC) 10 mg PO ONCE 1 Days Qty: 2 0RF Rx Instructions: take 2 tabs at noon the day before your colonoscopy docusate sodium 100 mg capsule 100 mg PO BEDTIME Qty: 90 3RF Citrucel 500 mg tablet 500 mg PO DAILY Qty: 90 3RF Rx Instructions: take it with full glass of water <Jennifer Tate MD - Last Filed: 07/14/22 14:55> Referrals: Jone Lomeli MD [Primary Care Provider] - 2 days <Jennifer Tate MD - Last Filed: 07/14/22 14:55> Stand Alone Forms: Work/School Release <Jennifer Tate MD - Last Filed: 07/14/22 14:55>
[2022-07-14 16:23] LABS: MANUAL DIFF FLAG NO
[2022-07-14 16:25] LABS: Basophils Absolute Auto 0.1 X10*3/uL (0.0-0.2); Basophils Percent Auto 0.4 % (0-2); Eosinophils Absolute Auto 0.2 X10*3/uL (0.0-0.4); Eosinophils Percent Auto 1.3 % (0-4); Hematocrit 40.4 % (37.0-47.0); Hemoglobin 13.7 g/dl (12.0-16.0); Imm Gran Abs Auto 0.04 X10*3/uL (0.00-0.03); Imm Gran Pct Auto 0.3 % (0.0-0.4); Lymphocytes Absolute Auto 2.6 X10*3/uL (1.2-4.9); Lymphocytes Percent Auto 21.2 % (20-40); Mean Corpuscular HGB Conc 33.9 g/dl (31.0-35.0); Mean Corpuscular Hemoglobin 30.2 pg (27.0-33.0); Mean Platelet Volume 10.4 fL (9.4-12.3); Monocytes Absolute Auto 0.6 X10*3/uL (0.1-1.2); Monocytes Percent Auto 4.7 % (2-11); Neutrophils Absolute Auto 8.7 x10*3/uL (2.0-8.3); Neutrophils Percent Auto 72.1 % (45-73); Platelet Count 208 X10*3/uL (160-400); Red Blood Count 4.54 X10*6/uL (4.20-5.50); Red Cell Distribution Width 12.3 % (11.0-16.0)
[2022-07-14 16:27] LABS: Appearance Urine Clear; Color Urine Yellow; Glucose Urine UA Negative (Negative); Leukocyte Esterase Urine Small (1+) (Negative); Nitrite Urine Negative (Negative); PH 5.5 (5.0-9.0); Specific Gravity - Urine 1.015 (1.005-1.025); UMIC TRIGGER UACC YES; Urine Blood Negative (Negative); Urine Ketones Trace mg/dL (Negative); Urine Protein Negative (Neg-Trace)
[2022-07-14 16:30] LABS: Bacteria Urine 2+ (None Seen); Hyaline Casts Urine 0-2 /LPF (0-2); RBC Urine 0-2 /HPF (0-2); UACC Culture Trigger YES
[2022-07-14 16:30] LABS: INTERNATIONAL NORM RATIO 0.9 (0.9-1.1); Prothrombin Time 10.7 SEC (10.0-13.1)
[2022-07-14 16:46] LABS: Alanine Aminotransferase 19 U/L (0-31); Albumin Level 4.5 g/dL (3.5-5.0); Alkaline Phosphatase 123 U/L (39-117); Anion Gap 13 (12-20); Aspartate Amino Transferase 17 U/L (5-31); Blood Urea Nitrogen 15 mg/dL (9-16); Calcium 9.6 mg/dL (8.4-10.2); Carbon Dioxide 28 mmol/L (22-29); Chloride 107 mmol/L (96-108); Creatinine Clr Calc Pharmacy 64.9; Estimated Glomerular Filt Rate 47; Glucose Random 106 mg/dL (60-115); Lipase 35 U/L (8-78); Potassium 4.3 mmol/L (3.3-5.1); Sodium 144 mmol/L (135-145); Total Protein 6.9 g/dL (6.5-8.0)
[2022-07-14 17:02] LABS: Lactic Acid 2.4 mmol/L (0.5-2.0)
[2022-07-14 17:42] VITALS: BP 125/72; PULSE 76; RESP 20; TEMP 36.8; O2SAT 97
[2022-07-14 18:04] VITALS: BP 128/72; PULSE 75; RESP 18; TEMP 36.6; O2SAT 99
[2022-07-14] MEDS: oxyCODONE HCl Immed Release 5 MG TABLET PO (18:04)
--- NOTE | 2022-07-14 18:07 | PC.NURSE ---
patient a/ox4 . VSS . went over discharge instructions as ordered by provider . patient medicated prior to discharge . is transporting patient home . patient to return if symptoms worsen . no questions at this time .
[2022-07-14 18:20] LABS: Reflex Lactate? Lactic Acid Added
== END 2022-07-14 18:08 | disposition home or self-care (01) ==
PROVIDERS: Student in an Organized Health Care Education/Training Program; Emergency Provider Emergency Medicine; PCP Family Medicine
DX: R10.9 Unspecified abdominal pain (principal); K76.0 Fatty (change of) liver, not elsewhere classified; R16.2 Hepatomegaly with splenomegaly, not elsewhere classified; F17.210 Nicotine dependence, cigarettes, uncomplicated; Z71.6 Tobacco abuse counseling; Z79.899 Other long term (current) drug therapy
CPT/HCPCS: 36415; 74176; 80053; 81001; 83605; 83690; 85025; 85610; 87040; 87086; 99284

== ENCOUNTER 2022-07-17 15:04 | Outpatient (REF) | payer BC, SELFPAY ==
[2022-07-18 13:05] LABS: Appearance Urine Clear; Color Urine Yellow; Glucose Urine UA Negative (Negative); Leukocyte Esterase Urine Negative (Negative); Nitrite Urine Negative (Negative); Specific Gravity - Urine <= 1.005 (1.005-1.025); Urine Blood Negative (Negative); Urine Ketones Negative (Negative); Urine Protein Negative (Neg-Trace)
== END 2022-07-17 15:05 | disposition home or self-care (01) ==
LOC: HO.LNP 15:04
PROVIDERS: Visit Provider Family Medicine
DX: Z00.00 Encounter for general adult medical examination without abnormal findings (principal); R35.0 Frequency of micturition
CPT/HCPCS: 81003

== ENCOUNTER → 2022-12-11 16:10 | Outpatient (BNVA) | payer BC, SELFPAY | PROVIDERS: PCP Family Medicine; Visit Provider Nurse Practitioner Family ==

== ENCOUNTER 2023-02-23 09:17 | Day surgery (SDC) | payer BC, SELFPAY ==
[2023-02-23 09:53] VITALS: BMI 37.4
[2023-02-23 10:08] VITALS: BP 98/65; PULSE 72; RESP 15; TEMP 36.7; O2SAT 95
--- NOTE | 2023-02-23 10:17 | HO.ANESPROP2 ---
COUNTS INCLUDE 234 BEDS AT THE [facility] Active Problems Active Problems: All Active Problems (Updated 12/25/22 @ 21:22 by Pamella Greenfield [facility]) Urinary frequency (Acute) Irritable bowel syndrome (Acute) Back pain (Acute) Abdominal wall pain in right upper quadrant (Acute) Smoker (Acute) Screening for cervical cancer (Acute) Adult general medical exam (Acute) Tubular adenoma (Acute) Moderate left ankle sprain (Acute) Annual visit for general adult medical examination without abnormal findings (Acute) Breast cancer screening by mammogram (Acute) Screening for colon cancer (Acute) Skin tag (Acute) Constipation (Acute) Diarrhea (Acute) RUQ abdominal tenderness (Acute) Hyperlipidemia (Acute) Hypothyroidism (Acute) Past Medical History Medical History Anxiety Asthma Fatty liver Hyperlipidemia Hypothyroidism Smoker Tubular adenoma Family History Family History Father No problems noted. Mother Lung cancer Smoker Maternal Grandmother Breast CA Other Mental health disorder Family history of problems with anesthesia: No Surgical History Surgical History H/O foot surgery History of cholecystectomy History of tonsillectomy History of tubal ligation Hx of colonoscopy History of Problems with Anesthesia: No Social History Social History Housing: House Alcohol intake: former Patient Tobacco Use Status: Current everyday Tobacco user Tobacco use type: Cigarette Cigarettes Per Day: 15 Years Smoked: 35 e-Cigarette/Vaping Use: Never Used Use of substances other than those prescribed or required for medical reasons: No Are you DNR?: No Advance Directives: No Advance Directives Information Provided: Yes service: No Current occupational status: employed 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 Current occupational exposures/hazards: No Cognitive needs: No Hearing needs: No Vision needs: No Meds Allergies Allergy/AdvReac Type Severity Reaction Status Date / Time No Known Allergies Allergy Verified 12/11/22 16:17 Active Medications: Current Medications Albuterol Sulfate (Albuterol Sulfate (0.083%) 2.5 Mg/3 Ml Vial.Neb) 2.5 mg INHALE ONCE PRN PRN Reason: Shortness of Breath/Wheezing Lactated Ringer's (Lr) 1,000 mls @ 100 mls/hr IVCONT .Q10H [facility] Home Medications Medication Instructions Recorded Confirmed Last Taken Type peg 3350-electrolytes 227.1 240 ml PO Q10M 09/27/20 Unknown History gram-21.5 gram-6.36gram oral powder packet (Jodyytely) Exam Exam Date and Time: February 23, 2023 1017 Height,Weight and Vital Signs: Height 5 ft 6 in Weight 105.233 kg Airway Mallampati Class: II TM Dist: >3cm Neck ROM: Full Denture: Upper Heart: rrr Lungs: cta Assessment and Plan Assessment Anesthesia Assessment: Anesthesia Plan Discussed and Chart Reviewed Final Anesthetic Review Family History of Problems with Anesthesia: No History of Problems with Anesthesia: No NPO: Yes ASA Class: II Final Preanesthetic Review: No Changes in Pt Med Stat, Meds/Allgs Chart Reviewed and Consent Obtained/Reviewed Patient Risk: Intermediate Procedure Risk: Intermediate Anesthetic Plan Anesthetic Plan: MAC: Disposition: Standard PACU
[2023-02-23] MEDS: Lactated Ringers 1,000 ML 100 ML IVCONT (10:23)
--- NOTE | 2023-02-23 10:28 | MHC.SHP ---
Pre-Procedural Eval Section A Date of Service: 02/23/23 The History & Physical has been completed within 30 days and I have reviewed it.: No Section B Chief Complaint: screening, hx of colon polyps Relevant Family History (Specify if Yes): No Relevant Social History: Tobacco Use Present Medications: see Short Stay Collaborative assessment Medical History: Significant History (Anxiety Asthma Fatty liver Hyperlipidemia Hypothyroidism Smoker Tubular adenoma) History of Previous Operations: Relevant previous surgery/procedure and date(s) (H/O foot surgery History of cholecystectomy History of tonsillectomy History of tubal ligation Hx of colonoscopy) Allergies: Allergies Allergy/AdvReac Type Severity Reaction Status Date / Time No Known Allergies Allergy Verified 02/23/23 10:21 Review of Systems Sugical H&P ROS: Negative: Constitution, Cardiovascular, Respiratory and Gastrointestinal Exam Surgical H&P Exam: Normal: Heart, Normal: Lungs, Normal: Extremities and Normal: Abdomen Plan Diagnosis/Plan: Unchanged I have reviewed the history and physical and performed a pertinent physical examination on my patient. No changes have occurred unless specified. Time Spent With Patient Time: Total time managing care of this patient today ____ minutes.
--- NOTE | 2023-02-23 11:20 | P.OP_ITS ---
Operative Note Operative Note Date of Service: 02/23/23 Narrative: COLONOSCOPY TILL CECUM Pre-op diagnosis: Colon cancer screening, history of colon polyps Post-op diagnosis:? Diverticulosis, hemorrhoids Endoscopist:? Lisa Nolen MD Anesthesia:?MAC Consent: Indications for the procedure and potential complications of bleeding, perforation, reaction to medications and missed diagnosis were discussed with the patient and informed consent was obtained. Instrument: Olympus PCF H 190 L variable stiffness pediatric colonoscope Monitoring: Vital signs and clinical assessment, intermittent blood pressure monitoring, continuous EKG monitoring, Pulse oximetry and Carbon Dioxide monitoring were done throughout the procedure. Please see anesthesia flowsheet. Colon withdrawl time was 14 minutes. Procedure: The patient was placed in the left lateral decubitis position and pre-procedure medications were administered. After a digital rectal examination of the ano-rectum, the video colonoscope was inserted into the rectum and advanced through the colon to the cecum. The colonoscope was slowly withdrawn in a retrograde panoramic fashion and the colon mucosa was carefully examined including a retroflexed view of the rectum. Findings and interventions are described below. Procedure Difficulty: Without difficulty Findings: Terminal Ileum: Not evaluated Cecum: Normal Ascending Colon: Normal Transverse Colon: Normal Descending Colon: Moderate diverticulosis Sigmoid Colon: Moderate diverticulosis Rectum: Normal Ano-rectum: Small internal hemorrhoids Colon preparation: Good after some irrigation (pt took 2 preps for the procedure) Impression and Post Procedure Diagnosis: Colonoscopy Findings: No polyps were detected Moderate diverticulosis seen in the left colon Small hemorrhoids on retroflexed exam. Plan: Patient has an appointment on 03/13/23 in the GI Clinic with Pamella Greenfield FNP- [facility]. Repeat Colonoscopy in 5 years due to a hx of adenomatous colon polyps. Above findings were reviewed with the patient and diverticulosis handout was given in the discharge area
[2023-02-23 11:55] VITALS: BP 106/60; PULSE 66; RESP 16; TEMP 37.2; O2SAT 97
[2023-02-23 12:10] VITALS: BP 105/61; PULSE 66; RESP 16; TEMP 37.2; O2SAT 99
== END 2023-02-23 12:39 | disposition home or self-care (01) ==
PROVIDERS: PCP Family Medicine; Visit Provider Internal Medicine Gastroenterology
PROC: 0DJD8ZZ Inspection of Lower Intestinal Tract, Via Natural or Artificial Opening Endoscopic (ICD-10-PCS; CPT 45378; principal; 2023-02-23 11:00)
DX: Z12.11 Encounter for screening for malignant neoplasm of colon (principal); Z86.010 Personal history of colon polyps; K57.30 Diverticulosis of large intestine without perforation or abscess without bleeding; K64.8 Other hemorrhoids; K59.01 Slow transit constipation; K58.1 Irritable bowel syndrome with constipation; K70.0 Alcoholic fatty liver; K86.89 Other specified diseases of pancreas; F41.1 Generalized anxiety disorder; Z90.49 Acquired absence of other specified parts of digestive tract; J45.909 Unspecified asthma, uncomplicated; E78.5 Hyperlipidemia, unspecified; E03.9 Hypothyroidism, unspecified; Z79.899 Other long term (current) drug therapy; F17.210 Nicotine dependence, cigarettes, uncomplicated
CPT/HCPCS: 45378

== ENCOUNTER → 2023-02-23 09:17 | Outpatient (BNV) | payer BC, SELFPAY | PROVIDERS: PCP Family Medicine; Visit Provider Internal Medicine Gastroenterology | DX: Z12.11 Encounter for screening for malignant neoplasm of colon (principal); Z86.010 Personal history of colon polyps; K57.30 Diverticulosis of large intestine without perforation or abscess without bleeding; K64.8 Other hemorrhoids | CPT/HCPCS: 45378 ==

== ENCOUNTER 2023-03-11 16:13 | Outpatient (AMB) | payer BC, SELFPAY ==
[2023-03-11 16:19] VITALS: BP 112/70; PULSE 73; O2SAT 97; BMI 35.0
--- NOTE | 2023-03-11 16:19 | MHC.PC.OV ---
Vital Signs 03/11/23 16:19 Height 5 ft 6 in Weight 217 lb BMI 35.0 BP 112/70 Blood Pressure Location Lt brachial Position Sitting Pulse 73 Pulse Source Pulse Oximeter Pulse Oximetry (%) 97 Oxygen Delivery Method Room Air Intake Visit Reasons: medication discussion Intake Note: Patient is here for follow up after [facility]. Allergies No Known Allergies Allergy (Verified 03/11/23 16:23) Tobacco use date assessed: 03/11/23 Dental Screening Dental Screen Date: 03/11/23 Did you have a dental visit in the last 12 months?: No Did you have a dental problem in the last 6 months where you did not have access to dental care?: No Was dental information given to patient?: No HPI medication discussion HPI Details 58 y/o female presents to f/u chronic conditions such as back pain. [facility] not [facility] us any reports. Pt reports they had seen spondylilisthesis Pt reports they she has been keeping herself more active and has been losing weight. [facility] Medical History (Updated 02/23/23 @ 10:53 by Sera Bond RN) Anxiety Arthritis Asthma Fatty liver Hyperlipidemia Hypothyroidism Smoker Tubular adenoma Surgical History H/O foot surgery History of cholecystectomy History of tonsillectomy History of tubal ligation Hx of colonoscopy Family History Father No problems noted. 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 Lul Lerma, Chayito Dumont, Rambo Gordillo and colleagues, with an educational justus from [employer] Physical exam (Primary Care) Vital Signs: Last Vital Signs Pulse 73 03/11/23 16:19 BP 112/70 03/11/23 16:19 Pulse Ox 97 03/11/23 16:19 Oxygen Delivery Method Room Air 03/11/23 16:19 BMI result Body Mass Index 35.0 Tobacco/Smoking Status: Tobacco use Status Tobacco use date assessed 03/11/23 03/11/23 16:29 Patient Tobacco Use Status Current everyday Tobacco 03/11/23 16:22 Tobacco use type Cigarette 03/11/23 16:22 e-Cigarette/Vaping Use Never Used 03/11/23 16:22 Thrive Assessment: Date of Thrive Assessment Date Thrive assessed 08/26/21 03/11/23 16:22 Assessment and Plan Assessment & Plan (1) Back pain: Code(s): M54.9 - Dorsalgia, unspecified Plan: Back pain with spondylolisthesis and patient was referred to [facility] I do not have notes from [facility] but have requested these Patient says she was told that if slippage worsens ortho plans fusion I recommended she keep core muscles strong and offered physical therapy. Patient would like to perform exercises on her own for now. She can use diclofenac and I have increased her total daily dose from 150 mg daily to 200 mg daily She also has topical diclofenac and can use this as well Orders: Orders Comprehensive [place]. Panel Fast Today Z00.00 - Encounter for general adult medical examination without abnormal findings Lipid Panel Today Z00.00 - Encounter for general adult medical examination without abnormal findings Triiodothyronine T3 Total Today E03.9 - Hypothyroidism, unspecified Free T4 (Free Thyroxine) Today E03.9 - Hypothyroidism, unspecified Thyroid Stimulating Hormone Today E03.9 - Hypothyroidism, unspecified Microalbumin, Random (w Creat) Today I10 - Essential (primary) hypertension Complete Blood Count Auto Diff Today Z00.00 - Encounter for general adult medical examination without abnormal findings UA and rflx microscopic Today Z00.00 - Encounter for general adult medical examination without abnormal findings Medications: New diclofenac sodium Do not exceed 200mg per day 50 mg PO QID 30 days PRN 120 tabs 0RF pain Coding Level of Care Code Est Pt Level 3 (13628) Diagnoses Back pain M54.9
== END 2023-03-11 16:58 | disposition home or self-care (01) ==
PROVIDERS: PCP Family Medicine; Visit Provider Family Medicine
DX: M54.9 Dorsalgia, unspecified (principal)
CPT/HCPCS: 99213

== ENCOUNTER 2023-03-13 15:51 | Outpatient (AMB) | payer BC, SELFPAY ==
[2023-03-13 15:57] VITALS: BP 135/71; PULSE 73; BMI 35.2
--- NOTE | 2023-03-13 15:57 | MHC.OFFVIS ---
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 That will help her move her bowels better. Patient was also encouraged to increase fluid intake and activity to promote better bowel motility. Pancreatic insufficiency Will increase pancreatic enzymes. Patient is not taking large enough dose she continues to have symptoms. Patient will call us if the new dose is going to be affecting her in any way. Patient was encouraged to take it with IBS (irritable bowel syndrome) Occasional abdominal cramping. No FODMAP diet discussed with patient: list of food to avoid and list of food recommended Alcohol induced fatty liver Continue abstinence from alcohol. Patient was also encouraged to lose weight that will help her. Will repeat liver enzymes next visit. Screening for colon cancer Suboptimal prep last colonoscopy in 2020. When reviewing with patient clear liquid diet stressed day or even 2 days before the procedure. Patient now is moving her bowels better, I will change it to Linzess and patient will call the office if this not going to be effective. What to expect before during and after the procedure discussed with patient. Patient denies any cardiac or respiratory symptoms. May proceed with the procedure. No additional precaution. Patient was encouraged to stop taking Citrucel for week or 2 before going for the procedure. I will see her after the procedure, sooner on as needed basis. Patient is agreeable to this plan and verbalizes understanding of instructions. She was given the opportunity to ask questions all questions answered. ? Thank you for allowing me to participate in her care Plan Medications New mkchax-ogxwvjwq-hajdfgw 36,000-114,000- 180,000 unit (Creon) administer with meals and/or snacks 1 cap PO QID 120 caps 3RF K86.89 linaclotide (Linzess) 145 mcg PO DAILY 30 caps 4RF K59.04 Discontinued fwiypg-zbvgizam-icyzpfo 6,000-19,000 -30,000 unit do not exceed 10,000 unit/kg lipase per 24 hrs Discontinued Reason: Duplicate 1 cap PO .qid ac 120 caps 3RF COLONOSCOPY: Findings: Terminal Ileum: Not evaluated Cecum:? Normal Ascending Colon:? Normal Transverse Colon:? Normal Descending Colon:? Moderate diverticulosis Sigmoid Colon:? Moderate diverticulosis Rectum:? Normal Ano-rectum:? Small internal hemorrhoids Colon preparation:? Good after some irrigation (pt took 2 preps for the procedure) Impression and Post Procedure Diagnosis: Colonoscopy Findings: No polyps were detected Moderate diverticulosis seen in the left colon Small hemorrhoids on retroflexed exam. Plan: Repeat Colonoscopy in 5 years due to a hx of adenomatous colon polyps. TODAY'S VISIT Patient is here today for follow-up and to discuss colonoscopy results. Patient had no polyps, moderate diverticulosis seen in left colon. Small internal hemorrhoids. Patient has a history of tubular adenoma in the past and will need to repeat colonoscopy in 5 years. Patient denies any ill effects from the prep, anesthesia or procedure itself. Patient reports that she has been doing better. States that she is taking Linzess and is able to move her bowels. Patient states that she tries to stay away from food that causes her bloating. Trying still LM in a deluna diet and figuring out what works the best for her. Patient denies any other GI concerning symptoms. Reports to be doing fairly well. Patient continues to be abstinent from alcohol. Patient was diagnosed with pancreatic insufficiency and the dose of Creon was increased. Patient reports that she has been doing well, tolerating food well without any postprandial abdominal pain, loose stools, bloating. [facility] Medical History Anxiety Arthritis Asthma Fatty liver Hyperlipidemia Hypothyroidism Smoker Tubular adenoma Surgical History H/O foot surgery History of cholecystectomy History of tonsillectomy History of tubal ligation Hx of colonoscopy Family History Father No problems noted. 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 Current occupational exposures/hazards: No Cognitive needs: No Hearing needs: No Vision needs: No Review of Systems Const Denies weight gain and Denies weight loss ENT Reports no additional complaints, Denies dysphagia and Denies odynophagia Card Reports no additional complaints Resp Reports no additional complaints GI Denies abdominal pain, Denies belching, Denies melena, Denies bloating, Denies change in bowel habits, Denies dysphagia, Denies excessive flatus, Denies dyspepsia, Denies heartburn, Denies diarrhea, Denies loose stools, Denies nausea, Denies odynophagia and Denies vomiting Reports no additional complaints Musc Reports no additional complaints Neuro Reports no additional complaints Psych Reports no additional complaints Endo Reports no additional complaints Physical Exam Vital Signs: Last Vital Signs Pulse 73 03/13/23 15:57 BP 135/71 03/13/23 15:57 BMI result Body Mass Index 35.2 Const General: healthy appearing, no acute distress and well developed Nutritional Appearance: obese Orientation/consciousness: patient oriented x3 HEENT Head: Yes normal to inspection, Yes normocephalic and Yes atraumatic Face and sinus: Yes normal facial exam Mouth: Normal oral and palatal mucosa present Throat: Yes posterior oropharynx normal, Yes tonsils normal and Yes uvula midline Eyes General: appearance normal, both eyes and all related structures Neck Neck: Yes normal visual inspection, Yes full ROM and Yes trachea midline Thyroid: Thyroid normal Resp Effort & Inspection: normal respiratory effort, able to speak in complete sentences, no tracheal deviation and symmetric chest movement Auscultation: clear to auscultation bilaterally Cardio Rate: regular rate Heart sounds: S1 normal heart sound present and S2 normal heart sound present GI Inspection: Yes normal to inspection, No distended and Yes obesity Palpation (GI): Soft to palpation, not firm, nontender and No hepatosplenomegaly present Auscultation: normal bowel sounds General: Yes no CVA tenderness Back/Spine/Pelvis Back: no CVA tenderness Skin General skin exam: elasticity normal, turgor normal and dry skin Neuro General: patient oriented x3 Psych Appearance: grossly normal Mental Status: mental status grossly normal Speech and movement: Normal speech and movement present Assessment & Plan Assessment & Plan (1) Constipation: Code(s): K59.00 - Constipation, unspecified Qualifiers: Constipation type: slow transit constipation Qualified Code(s): K59.01 - Slow transit constipation Plan: Continue Linzess every morning. Patient was encouraged to increase fluid intake and activity to promote better bowel motility. Patient is working hard on trying to lose weight. (2) Pancreatic insufficiency: Code(s): K86.89 - Other specified diseases of pancreas Plan: Continue Creon with meals. Patient is tolerating it well. Denies any abdominal pain or discomfort (3) IBS (irritable bowel syndrome): Code(s): K58.9 - Irritable bowel syndrome without diarrhea Qualifiers: Irritable bowel syndrome type: unspecified Qualified Code(s): K58.9 - Irritable bowel syndrome without diarrhea Plan: Continue low FODMAP diet. Avoid food that is high in fat. Diagnosed with pancreatic insufficiency, continue enzymes (4) Status post colonoscopy: Code(s): Z98.890 - Other specified postprocedural states Plan: No polyps found, moderate diverticulosis to live side of the colon. Small internal hemorrhoids. Due to previously diagnosed with tubular adenoma patient will repeat colonoscopy in 5 years, sooner if clinically necessary (5) Alcohol induced fatty liver: Code(s): K70.0 - Alcoholic fatty liver Plan: Continue avoiding alcohol. Patient was encouraged to get her blood work done. CBC, CMP ordered. Will look at her liver enzymes when patient will do her blood work. I will see patient in 6 months, sooner on as needed basis. Patient is agreeable to this plan and verbalizes understanding of instructions. She was given the opportunity to ask questions and all questions answered. Thank you for allowing me to participate in her care Coding Level of Care Code Est Pt Level 4 (07641) Diagnoses Constipation K59.01 Constipation type: slow transit constipation Pancreatic insufficiency K86.89 IBS (irritable bowel syndrome) K58.9 Irritable bowel syndrome type: unspecified Status post colonoscopy Z98.890 Alcohol induced fatty liver K70.0 Time Spent (min) 40 Comment 25 minutes spent with patient and additional 15 minutes spent reviewing her records
== END 2023-03-13 16:42 | disposition home or self-care (01) ==
PROVIDERS: Visit Provider Nurse Practitioner Family
DX: K59.01 Slow transit constipation (principal); K86.89 Other specified diseases of pancreas; K58.9 Irritable bowel syndrome, unspecified; Z98.890 Other specified postprocedural states; K70.0 Alcoholic fatty liver
CPT/HCPCS: 99214

== ENCOUNTER → 2023-03-13 15:51 | Outpatient (BNVA) | payer BC, SELFPAY | PROVIDERS: Visit Provider Nurse Practitioner Family ==

== ENCOUNTER 2023-05-12 15:36 | Outpatient (REF) | payer BC, SELFPAY ==
--- NOTE | ~2023-05-12 | MM_ITS ---
EXAMINATION: MM SCREENING DIGITAL BREAST TOMOSYNTHESIS, BILATERAL CLINICAL INFORMATION: Screening. Asymptomatic. COMPARISON: Mammography: This study is compared with prior exams dating back to 2016. TECHNIQUE: Digital breast tomosynthesis is performed in both the craniocaudal and mediolateral oblique views along with computer-aided detection (CAD). Synthesized 2D images are generated from the tomosynthesis. FINDINGS: The breasts are heterogeneously dense, which may obscure small masses (ACR BI-RADS breast composition Category c). In the upper outer quadrant of the left breast, there are grouped calcifications which warrant additional mammographic imaging magnification. In the right breast, there are no significant masses, abnormal calcifications, or other abnormalities. MM/MM tomosynthesis screening BI IMPRESSION: Calcifications in the left breast warrant additional mammographic imaging magnification mammography. No mammographic signs of malignancy right breast. ASSESSMENT: BI-RADS BI-RADS 0 - Incomplete: Needs additional Imaging. RECOMMENDATION: Additional views of the left breast Radiology department staff will contact the patient for additional imaging. Additional Imaging required This examination should not preclude the clinical evaluation of a suspicious palpable abnormality. This patient's information was entered into a reminder system with a target due date for their next mammogram.
== END 2023-05-12 15:37 | disposition home or self-care (01) ==
LOC: HO.MAMMO 15:36
PROVIDERS: Visit Provider Family Medicine
DX: Z12.31 Encounter for screening mammogram for malignant neoplasm of breast (principal)
CPT/HCPCS: 77063; 77067

== ENCOUNTER → 2023-05-12 16:00 | Outpatient (BNV) | payer BC, SELFPAY | PROVIDERS: Visit Provider Radiology Diagnostic Radiology | DX: Z12.31 Encounter for screening mammogram for malignant neoplasm of breast (principal) | CPT/HCPCS: 77063; 77067 ==

== ENCOUNTER 2023-06-13 07:00 | Outpatient (REF) | payer BC, SELFPAY ==
[2023-06-13 07:13] LABS: MANUAL DIFF FLAG NO
[2023-06-13 07:35] LABS: Basophils Absolute Auto 0.1 X10*3/uL (0.0-0.2); Basophils Percent Auto 0.6 % (0-2); Eosinophils Absolute Auto 0.2 X10*3/uL (0.0-0.4); Eosinophils Percent Auto 1.8 % (0-4); Hematocrit 41.9 % (37.0-47.0); Hemoglobin 14.6 g/dl (12.0-16.0); Imm Gran Abs Auto 0.03 X10*3/uL (0.00-0.03); Imm Gran Pct Auto 0.4 % (0.0-0.4); Lymphocytes Absolute Auto 1.7 X10*3/uL (1.2-4.9); Mean Corpuscular HGB Conc 34.8 g/dl (31.0-35.0); Mean Corpuscular Hemoglobin 30.8 pg (27.0-33.0); Mean Corpuscular Volume 88.4 fL (80.0-98.0); Mean Platelet Volume 10.6 fL (9.4-12.3); Monocytes Absolute Auto 0.4 X10*3/uL (0.1-1.2); Monocytes Percent Auto 5.2 % (2-11); Platelet Count 170 X10*3/uL (160-400); Red Blood Count 4.74 X10*6/uL (4.20-5.50); Red Cell Distribution Width 12.1 % (11.0-16.0); White Blood Count 8.3 X10*3/uL (4.8-10.8)
[2023-06-13 08:07] LABS: Alanine Aminotransferase 18 U/L (0-31); Albumin Level 4.2 g/dL (3.5-5.0); Alkaline Phosphatase 93 U/L (39-117); Anion Gap 12 (12-20); Aspartate Amino Transferase 20 U/L (5-31); Bilirubin Total 0.9 mg/dL (0.0-1.0); Blood Urea Nitrogen 14 mg/dL (9-16); Calcium 9.5 mg/dL (8.4-10.2); Carbon Dioxide 26 mmol/L (22-29); Chloride 107 mmol/L (96-108); Cholesterol 152 mg/dL (<200); Estimated Glomerular Filt Rate 55; Glucose Fasting 98 mg/dL (60-99); HDL Cholesterol 39 mg/dL (>40); LDL Cholesterol Calculated 99 mg/dL (<100); Potassium 4.5 mmol/L (3.3-5.1); Sodium 140 mmol/L (135-145); Total Protein 6.8 g/dL (6.5-8.0); Triglycerides 73 mg/dL (<150)
[2023-06-13 08:25] LABS: Free T4 (Free Thyroxine) 1.12 ng/dL (0.71-1.85); Thyroid Stimulating Hormone 1.84 uIU/mL (0.32-4.0)
[2023-06-13 08:57] LABS: Appearance Urine Clear; Color Urine Yellow; Glucose Urine UA Negative (Negative); Leukocyte Esterase Urine Negative (Negative); Nitrite Urine Negative (Negative); PH 5.5 (5.0-9.0); Urine Blood Negative (Negative); Urine Ketones Negative (Negative); Urine Protein Negative (Neg-Trace)
[2023-06-13 09:23] LABS: Creatinine Urine 39.43 mg/dL; Microalbumin Urine < 5.0 mg/L
[2023-06-14 10:28] LABS: Triiodothyronine T3 Total 116 ng/dL (76-181)
== END 2023-06-13 07:01 | disposition home or self-care (01) ==
LOC: HO.LAB 07:00
PROVIDERS: PCP Family Medicine; Visit Provider Family Medicine
DX: Z00.00 Encounter for general adult medical examination without abnormal findings (principal); E03.9 Hypothyroidism, unspecified; I10 Essential (primary) hypertension
CPT/HCPCS: 36415; 80053; 80061; 81003; 82043; 82570; 84439; 84443; 84480; 85025

== ENCOUNTER 2023-06-15 14:58 | Outpatient (AMB) | payer BC, SELFPAY ==
--- NOTE | 2023-06-15 15:05 | MHC.PC.OV ---
Vital Signs 06/15/23 15:08 Height 5 ft 6 in Weight 202 lb BMI 32.6 BP 114/60 Blood Pressure Location Lt brachial Position Sitting Respiration 13 Pulse 80 Pulse Source Pulse Oximeter Temp 98.9 F Temp Source Oral Pulse Oximetry (%) 99 Intake Visit Reasons: CPE with f/u labs and health maintenance Intake Note: Patient is here for her physical. Patient has no concerns for todays appointment. 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 Mother Lung cancer Smoker Maternal Grandmother Breast CA Other Mental health disorder Social History (Updated 06/15/23 @ 15:17 by Lizett Covarrubias CMA) Household Members: Spouse and Family Housing: House Alcohol intake: former Patient Tobacco Use Status: Current everyday Tobacco user Tobacco use type: Cigarette Cigarettes Per Day: 17 Years Smoked: 35 Packs per year/per ci.25 e-Cigarette/Vaping Use: Never Used Use of substances other than those prescribed or required for medical reasons: No Have you been hit, kicked, punched, or otherwise hurt by someone within the past year? 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 1. Little interest or pleasure in doing things: not at all 2. Feeling down, depressed, or hopeless: not at all 3. Trouble falling or staying asleep, or sleeping too much: not at all 4. Feeling tired or having little energy: not at all 5. Poor appetite or overeating: not at all 6. Feeling bad about yourself - or that you are a failure or have let yourself or your family down: not at all 7. Trouble concentrating on things, such as reading the newspaper or watching television: not at all 8. Moving or speaking so slowly that other people could have noticed. Or the opposite - being so fidgety or restless that you have been moving around a lot more than usual: not at all 9. Thoughts that you would be better off or of hurting yourself in some way: not at all Total score: 0 Depression Screening Interpretation: Negative Depression Screening Done: Yes 52277 - PHQ-9 Billing: Yes Source: Developed by Drs. Lul Lerma, Rambo Talavera and colleagues, with an educational justus from [employer]. Thrive Questionnaire Date Thrive assessed: 08/26/21 MADI-7 AMB Questionnaire MADI-7 Date MADI - 7 assessed: 06/15/23 Feeling nervous, anxious, or on edge: 0 = Not at all Not being able to stop or control worryin = Not at all Worrying too much about different things: 0 = Not at all Trouble relaxin = Not at all Being so restless that it is hard to sit still: 0 = Not at all Becoming easily annoyed or irritable: 0 = Not at all Feeling afraid as if something awful might happen: 0 = Not at all Total MADI-7 score (0-4 normal; 5-9 mild; 10-14 moderate; 15-21 severe): 0 Source: Developed by Drs. Lul Lerma, Rambo Talavera and colleagues, with an educational justus from [employer]. MADI-7 Assessment Billing MADI-7 Assessment Tool: MADI-7 Assessment 16463 Physical exam (Primary Care) Vital Signs: Last Vital Signs Temp 98.9 F 06/15/23 15:08 Pulse 80 06/15/23 15:08 Resp 13 06/15/23 15:08 BP 114/60 06/15/23 15:08 Pulse Ox 99 06/15/23 15:08 BMI result Body Mass Index 32.6 Tobacco/Smoking Status: Tobacco use Status Tobacco use date assessed 03/11/23 06/15/23 15:05 Patient Tobacco Use Status Current everyday Tobacco 06/15/23 15:17 Tobacco use type Cigarette 06/15/23 15:17 e-Cigarette/Vaping Use Never Used 06/15/23 15:17 PHQ-9: PHQ-9 Score PHQ-9: Total score 0 06/15/23 15:14 Depression Screening Interpretation: Negative Thrive Assessment: Date of Thrive Assessment Date Thrive assessed 08/26/21 06/15/23 15:05 Assessment and Plan Assessment & Plan (1) Adult general medical exam: Code(s): Z00.00 - Encounter for general adult medical examination without abnormal findings Plan: 58-year-old?female?presents?for?complete?physical?exam Encouraged?healthy?diet?with?active?lifestyle?and?plenty?of?exercise (2) Back pain: Code(s): M54.9 - Dorsalgia, unspecified Plan: Fairly?well?controlled.??She?is?using?an?[place]?to?do?back?exercises?but?no?core?muscle?training 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 Mildly?low?HDL Encouraged?a?diet?higher?in?[place]?3?fatty?acids Continue?exercise?and?weight?loss (4) Hypothyroidism: Code(s): E03.9 - Hypothyroidism, unspecified Plan: Thyroid?levels?are?controlled?on?levothyroxine Continue?current?medication (5) Smoker: Code(s): F17.200 - Nicotine dependence, unspecified, uncomplicated Plan: Patient?continues?to?smoke Encouraged?cessation?and?she?is?thinking?about?it. Qualifies?for?low-dose?CT?scanning?for?screening?for?lung?cancer. I?have?asked?the?staff?to?complete?her?paperwork?to?get?this?done?and?get?her?scheduled. (6) Left knee pain: Code(s): M25.562 - Pain in left knee Plan: Can?use?ibuprofen?as?needed (7) Screening for colon cancer: Code(s): Z12.11 - Encounter for screening for malignant neoplasm of colon Plan: Followed?by?[facility]?gastroenterology Follow-up?as?recommended (8) Breast cancer screening by mammogram: Code(s): Z12.31 - Encounter for screening mammogram for malignant neoplasm of breast Plan: Has?additional?views?scheduled? (9) Screening for cervical cancer: Code(s): Z12.4 - Encounter for screening for malignant neoplasm of cervix Plan: Patient?will?contact?photo machine operator?at?[facility]?for?screening. Orders: Orders Free T4 (Free Thyroxine) Today E03.9 - Hypothyroidism, unspecified Comprehensive [place]. Panel Fast Today E78.5 - Hyperlipidemia, unspecified, Z00.00 - Encounter for general adult medical examination without abnormal findings PT Evaluation and Treatment Today M54.9 - Dorsalgia, unspecified Thyroid Stimulating Hormone Today E03.9 - Hypothyroidism, unspecified Triiodothyronine T3 Total Today E03.9 - Hypothyroidism, unspecified Lipid Panel Today E78.5 - Hyperlipidemia, unspecified, Z00.00 - Encounter for general adult medical examination without abnormal findings Medications: New ibuprofen 800 mg PO Q8H 30 days PRN 42 tabs 2RF pain Coding Level of Care Code Est Pt Level 3 (70761) Est Pt Prev Care 40-64y(86022) Diagnoses Adult general medical exam Z00.00 Back pain M54.9 Hyperlipidemia E78.5 Hypothyroidism E03.9 Smoker F17.200 Left knee pain M25.562 Screening for colon cancer Z12.11 Breast cancer screening by mammogram Z12.31 Screening for cervical cancer Z12.4 Additional Codes MADI-7 Assessment Billing - MADI-7 Assessment Tool: MADI-7 Assessment [id number] ([id number])
[2023-06-15 15:08] VITALS: BP 114/60; PULSE 80; RESP 13; TEMP 37.2; O2SAT 99; BMI 32.6
== END 2023-06-15 16:50 | disposition home or self-care (01) ==
PROVIDERS: PCP Family Medicine; Visit Provider Family Medicine
DX: Z00.00 Encounter for general adult medical examination without abnormal findings (principal); M54.9 Dorsalgia, unspecified; E78.5 Hyperlipidemia, unspecified; E03.9 Hypothyroidism, unspecified; F17.210 Nicotine dependence, cigarettes, uncomplicated; M25.562 Pain in left knee
CPT/HCPCS: 99396

== ENCOUNTER 2023-06-25 12:02 | Emergency (ER) | payer BC, SELFPAY ==
--- NOTE | ~2023-06-25 | XR_ITS ---
EXAMINATION: XR CHEST CLINICAL INFORMATION: Cough. COMPARISON: None available. TECHNIQUE: Frontal view of the chest was obtained. FINDINGS: Heart and pulmonary vessels are normal. No congestive change. Lungs clear. XR/XR chest 1V IMPRESSION: No active disease.
[2023-06-25 12:36] LABS: COVID-19 Test Negative (Negative); IDNOW Serial# BCCEAD1C
[2023-06-25 12:47] VITALS: BP 129/70; PULSE 75; RESP 17; TEMP 35.6; O2SAT 95; BMI 32.5
--- NOTE | 2023-06-25 14:17 | ED.GENADULT ---
HPI - General Adult General Chief complaint: General Medical Stated complaint: ? Bronchitis Time Seen by Provider: 06/25/23 13:27 Source: patient and family Mode of arrival: ambulatory Limitations: no limitations History of Present Illness HPI narrative: 58 yo female with PMH of smoking, COPD, HLD, hypothyroidism here with c/o 3 days of cough, wheezing and did cough and see a streak of blood - not shelli not on thinners and not every time. She is not having fevers. She does have hx of bronchitis. She tried inhalers but it makes her cough. MD complaint: cough Onset (ago): day(s) (3) Location: chest Radiation: non-radiation Severity: mild Relieving factors: none Exacerbating factors: other (coughing) Associated symptoms: other (cough, had blood tinged sputum) Treatments prior to arrival: none Related Data Previous Rx's Medication Instructions Recorded albuterol sulfate 90 mcg/actuation 2 puff inhalation Q4-6H PRN 04/24/21 aerosol inhaler (ProAir HFA) shortness of breath or wheezing 30 days #8.5 grams fluticasone 250 mcg-salmeterol 50 1 ea PO BID #60 ea 11/03/22 mcg/dose blistr powdr for inhalation (Wixela Inhub) qzgonh-jxqpuort-qdyxorl 1 cap PO QID #120 caps 01/29/23 36,000-114,000-180,000 unit capsule,delay rel (Creon) atorvastatin 10 mg tablet 10 mg PO DAILY #90 tabs 02/02/23 levothyroxine 200 mcg tablet 200 mcg PO DAILY 90 days #90 tabs 02/02/23 paroxetine HCl 40 mg tablet (Paxil) 40 mg PO DAILY 90 days #90 tabs 02/02/23 linaclotide 145 mcg capsule 145 mcg PO DAILY #30 caps 02/16/23 (Linzess) ibuprofen 800 mg tablet 800 mg PO Q8H PRN pain 30 days #42 06/15/23 tabs diclofenac sodium 50 mg 50 mg PO QID PRN pain 30 days #120 06/23/23 tablet,delayed release tabs azithromycin 250 mg tablet See Rx Instructions PO .COMPLEX #6 06/25/23 tabs prednisone 20 mg tablet 40 mg (2 x 20 mg) PO DAILY 5 days 06/25/23 #10 tabs Allergies Allergy/AdvReac Type Severity Reaction Status Date / Time No Known Allergies Allergy Verified 06/15/23 15:13 Review of Systems Review of Systems: Constitutional : No Fever, No Chills ENT/Mouth : No Hoarseness, No sore throat, No Rhinorrhea Eyes: No Redness, No Discharge, No Vision Changes Cardiovascular : No Chest Pain, positive SOB, positive Dyspnea on Exertion, No Edema Respiratory : positive Cough, pos Sputum, positive Wheezing, Gastrointestinal : No Nausea, No Vomiting, No Diarrhea, No abdominal Pain Genitourinary : No Dysuria, No Hematuria Musculoskeletal : No joint pain, No Myalgias Skin : No rash Neuro : No Weakness, No Numbness, No Headache Psych : No anxiety, depression Heme/Lymph: No Bruising, No Bleeding Endocrine : No Polyuria, No Polydipsia All other systems reviewed and are negative [facility] Past Medical History Source: old records reviewed Medical History Arthritis Tubular adenoma Anxiety Smoker Asthma Fatty liver Hyperlipidemia Hypothyroidism Surgical History Hx of colonoscopy H/O foot surgery History of tonsillectomy History of tubal ligation History of cholecystectomy Family History Family History Father No problems noted. 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 Oriented X3. No acute distress. Eyes: Pupils equal, round and reactive to light. ENT: Pharynx normal. Neck: Normal inspection. Neck supple. CVS: Normal heart rate and rhythm. Pulses normal. Respiratory: No respiratory distress. Breath sounds slightly diminished but no resp distress not toxic Abdomen: Soft and non-tender. Skin: Skin warm and dry. Normal skin color. Normal skin turgor. Extremities: No lower extremity edema. Neuro: Oriented X 3. No motor deficit. No sensory deficit. Medical Decision Making Medical Decision Making [facility] Narrative: 58 yo female with PMH of smoking, COPD, HLD, hypothyroidism here with c/o URI symptoms and also had some blood tinged sputum at this time not toxic no hypoxia no chest pain to suggest ACS/VTE. No hx of malignancy has good PCP follow up. At this time will treat as bronchitis and start on steroids, duonedasia and zpak refer to PCP given smoking hx to trend hemoptysis and make sure this is not malignancy associated. Differential Diagnosis Differential Diagnoses: The differential diagnosis associated with the presentation includes pneumonia, bronchitis, viral syndrome Admission/Observation Consideration of admission/observation: Escalation of care including admission/observation considered no hypoxia, no resp distress can be managed as outpatient Lab Data [facility] Lab Attestation statement: I reviewed the patient's lab results. Labs: Lab Results 06/25/23 Range/Units 12:14 COVID-19 (ANGELA) Negative (Negative) COVID-19 Clin Com See Note Independent Interpretation I performed an independent interpretation of an: Plain X-Ray (no pneumonia) Radiology Impression Discussion of test interpretation with radiology: I have reviewed the radiologist's reading. Independent Historian Clinical information obtained from an independent historian. History obtained from or confirmed by: Other External Record Review External record reviewed: Inpatient record Prescription Management I considered prescription management with: Antibiotic and Other Discharge Plan Discharge Clinical Impression: Bronchitis Patient Disposition: Home, Self-Care Instructions: Acute Bronchitis (ED) Additional Instructions: return for worsening symptoms, fevers, increased bleeding or coughing of blood, dizziness, pain or any other concerns. take a probiotic while on antibiotic. stop smoking. follow up with your doctor in the next week. Make sure you get checked up again by your doctor given the cough with bloody sputum and your history of smoking your covid was negative, no pneumonia seen on chest xray Prescriptions: New prednisone 20 mg tablet 40 mg PO DAILY 5 Days Qty: 10 0RF azithromycin 250 mg tablet See Rx Instructions PO .COMPLEX Qty: 6 0RF Rx Instructions: For 250 mg dose pack: take 500 mg today (day 1), then 250 mg for 4 days (days 2-5) No Action albuterol sulfate [ProAir HFA] 90 mcg/actuation HFA aerosol inhaler 2 puff inhalation Q4-6H PRN (Reason: shortness of breath or wheezing) 30 Days Qty: 8.5 3RF fluticasone propion-salmeterol [Wixela Inhub] 250-50 mcg/dose blister with device 1 ea PO BID Qty: 60 4RF Creon 36,000-114,000- 180,000 unit capsule,delayed release(DR/EC) 1 cap PO QID Qty: 120 3RF Rx Instructions: administer with meals and/or snacks atorvastatin 10 mg tablet 10 mg PO DAILY Qty: 90 2RF levothyroxine 200 mcg tablet 200 mcg PO DAILY 90 Days Qty: 90 3RF paroxetine HCl [Paxil] 40 mg tablet 40 mg PO DAILY 90 Days Qty: 90 3RF Linzess 145 mcg capsule 145 mcg PO DAILY Qty: 30 4RF diclofenac sodium 50 mg tablet,delayed release (DR/EC) 50 mg PO QID PRN (Reason: pain) 30 Days Qty: 120 0RF Rx Instructions: Do not exceed 200mg per day ibuprofen 800 mg tablet 800 mg PO Q8H PRN (Reason: pain) 30 Days Qty: 42 2RF
[2023-06-25] MEDS: Albuterol/Iprat 2.5/0.5MG 3 ML AMPUL.NEB INHALE (14:19)
[2023-06-25 14:22] VITALS: PULSE 74; RESP 18; O2SAT 94
[2023-06-25] MEDS: predniSONE 20 MG TABLET 40 MG PO (14:38)
[2023-06-25 14:40] VITALS: BP 138/75; PULSE 77; RESP 16; O2SAT 96
== END 2023-06-25 14:52 | disposition home or self-care (01) ==
PROVIDERS: Physician Assistant; Emergency Provider Emergency Medicine; PCP Family Medicine
DX: J40 Bronchitis, not specified as acute or chronic (principal); R05.9 Cough, unspecified; F17.210 Nicotine dependence, cigarettes, uncomplicated; Z11.52 Encounter for screening for COVID-19; Z20.822 Contact with and (suspected) exposure to COVID-19; Z71.6 Tobacco abuse counseling; Z79.899 Other long term (current) drug therapy
CPT/HCPCS: 71045; 87635; 94640; 99284

== ENCOUNTER 2023-06-29 14:15 | Outpatient (REF) | payer BC, SELFPAY ==
--- NOTE | ~2023-06-29 | MM_ITS ---
EXAMINATION: MM DIAGNOSTIC DIGITAL MAMMOGRAPHY, LEFT CLINICAL INFORMATION: Evaluate calcifications left breast upper outer quadrant. COMPARISON: Mammography: 05/12/2023, and dating back to 2019. TECHNIQUE: Digital mammography is performed in the following views: Left spot magnification views x2, and left CC spot magnification view x1. FINDINGS: There are scattered areas of fibroglandular density (ACR BI-RADS breast composition Category b). There are scattered loosely grouped calcifications, at least a few which layer on the 90 degrees mediolateral view, suggesting milk of calcium. No pleomorphic forms, no linear forms, no suspicious distribution. These have a benign appearance and are probably benign. No additional abnormalities seen. MM/MM added views LT IMPRESSION: Probably benign calcifications left breast upper outer quadrant. Recommend standard magnification views in 6 months to ensure stability. ASSESSMENT: BI-RADS BI-RADS 3 - Probably benign finding(s) - 6 month follow-up suggested RECOMMENDATION: 6 Month F/U This patient's information was entered into a reminder system with a target due date for their next mammogram.
== END 2023-06-29 14:16 | disposition home or self-care (01) ==
LOC: HO.MAMMO 14:15
PROVIDERS: PCP Family Medicine; Visit Provider Family Medicine
DX: R92.1 Mammographic calcification found on diagnostic imaging of breast (principal)
CPT/HCPCS: 77065

== ENCOUNTER → 2023-06-29 14:30 | Outpatient (BNV) | payer BC, SELFPAY | PROVIDERS: PCP Family Medicine; Visit Provider Radiology Diagnostic Radiology | DX: R92.1 Mammographic calcification found on diagnostic imaging of breast (principal) | CPT/HCPCS: 77065 ==

== ENCOUNTER 2023-07-27 11:02 | Outpatient (AMB) | payer BC, SELFPAY ==
[2023-07-27 11:11] VITALS: BP 132/78; PULSE 80; TEMP 37.4; O2SAT 94; BMI 31.6
--- NOTE | 2023-07-27 11:11 | A.OFFPC_ITS ---
Vital Signs 07/27/23 11:11 Height 5 ft 6 in Weight 196 lb BMI 31.6 BP 132/78 Blood Pressure Location Lt brachial Position Sitting Pulse 80 Temp 99.4 F Temp Source Oral Pulse Oximetry (%) 94 Oxygen Delivery Method Room Air Intake Visit Reasons: ? bronchitis Intake Note: Patient is here with question of bronchitis. Allergies No Known Allergies Allergy (Verified 07/27/23 11:14) Medication List - Last Reconciled 07/27/23 by Jone Lomeli MD albuterol sulfate 90 mcg/actuation (ProAir HFA) 2 puffs inhalation Q4-6H PRN 30 days atorvastatin 10 mg PO DAILY azithromycin For 250 mg dose pack: take 500 mg today (day 1), then 250 mg for 4 days (days 2-5) diclofenac sodium 50 mg PO QID PRN 30 days fluticasone propion-salmeterol 250-50 mcg/dose (Wixela Inhub) 1 ea PO BID ibuprofen 800 mg PO Q8H PRN 30 days levothyroxine 200 mcg PO DAILY 90 days linaclotide (Linzess) 145 mcg PO DAILY owzfpk-bwgwvmze-rgsfsaf 36,000-114,000- 180,000 unit (Creon) 1 cap PO QID paroxetine HCl (Paxil) 40 mg PO DAILY 90 days prednisone 40 mg (2 x 20 mg) PO DAILY 5 days tiotropium bromide (Spiriva with HandiHaler) 1 cap inhalation DAILY 30 days Tobacco use date assessed: 03/11/23 HPI ? bronchitis HPI Details 58 y/o female presents with ? bronchitis . She is on albuterol and Wixela. She notes she had been to the emergency department Novemebr and was given prednisone and a z-negrito. She continues smoking 1 ppd. [facility] Medical History Arthritis Tubular adenoma Anxiety Smoker Asthma Fatty liver Hyperlipidemia Hypothyroidism Surgical History Hx of colonoscopy H/O foot surgery History of tonsillectomy History of tubal ligation History of cholecystectomy Family History Father No problems noted. 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 Lul Lerma, Chayito Dumont, Rambo Gordillo and colleagues, with an educational justus from [employer]. Physical exam (Primary Care) Vital Signs: Last Vital Signs Temp 99.4 F 07/27/23 11:11 Pulse 80 07/27/23 11:11 BP 132/78 07/27/23 11:11 Pulse Ox 94 07/27/23 11:11 Oxygen Delivery Method Room Air 07/27/23 11:11 BMI result Body Mass Index 31.6 Tobacco/Smoking Status: Tobacco use Status Tobacco use date assessed 03/11/23 07/27/23 11:19 Patient Tobacco Use Status Current everyday Tobacco 07/27/23 11:19 Tobacco use type Cigarette 07/27/23 11:19 e-Cigarette/Vaping Use Never Used 07/27/23 11:19 Thrive Assessment: Date of Thrive Assessment Date Thrive assessed 08/26/21 07/27/23 11:19 Assessment and Plan Assessment & Plan (1) Bronchitis: Code(s): J40 - Bronchitis, not specified as acute or chronic Plan: Bronchitis?with?COPD?exacerbation Start?Z-Negrito?and?prednisone?again Continue?albuterol?and?Wixela Adding?Spiriva (2) COPD exacerbation: Code(s): J44.1 - Chronic obstructive pulmonary disease with (acute) exacerbation Plan: As?above,?adding?Spiriva?to?her?medication?regimen (3) Smoker: Code(s): F17.200 - Nicotine dependence, unspecified, uncomplicated Medications: New tiotropium bromide (Spiriva with HandiHaler) puncture 1 cap using device; one dose = 2 inhalations 1 cap inhalation DAILY 30 inhalations 2RF 30 days Refilled prednisone 40 mg (2 x 20 mg) PO DAILY 10 tabs 0RF 5 days azithromycin For 250 mg dose pack: take 500 mg today (day 1), then 250 mg for 4 days (days 2-5) 6 tabs 0RF Coding Level of Care Code Est Pt Level 3 (20941) Diagnoses Bronchitis J40 COPD exacerbation J44.1 Smoker F17.200
== END 2023-07-27 11:38 | disposition home or self-care (01) ==
PROVIDERS: PCP Family Medicine; Visit Provider Family Medicine
DX: J40 Bronchitis, not specified as acute or chronic (principal); J44.1 Chronic obstructive pulmonary disease with (acute) exacerbation; F17.200 Nicotine dependence, unspecified, uncomplicated
CPT/HCPCS: 99213

== ENCOUNTER 2023-09-11 10:53 | Outpatient (AMB) | payer BC, SELFPAY ==
--- NOTE | 2023-09-11 11:08 | A.OFFVIS_ITS ---
Intake Intake Visit Reasons: LDCT SD Allergies No Known Allergies Allergy (Verified 07/27/23 11:14) HPI HPI Comments History of Present Illness Details Jessenia is a pleasant 58 year old female, current smoker with a 43 PYH. Patient has been smoking since age 13 for 43 years at 1 ppd, quit for 1-2 years. Denies marijuana use. Denies exposure to chemicals or substances like asbestos. Admits second hand smoke exposure. Reports mother and maternal grandmother, smokers, with lung cancer. Denies personal history of cancers. Denies chest CT in last year. Denies recent travel outside the [place]. Denies testing positive for COVID. Admits receiving COVID Vaccine. Denies fever, chills, chest pain, new cough, hemoptysis (reports scant amount d/t bronchitis in the past) or unintentional weight loss. Lung Cancer Screening Questionnaire reviewed with patient by provider. Shared Decision Making Completed. Discussed in detail with patient, the risk versus benefit of LDCT screening. Patient in agreement of proceeding with scan. PFS Medical History Arthritis Tubular adenoma Anxiety Smoker Asthma Fatty liver Hyperlipidemia Hypothyroidism Surgical History Hx of colonoscopy H/O foot surgery History of tonsillectomy History of tubal ligation History of cholecystectomy Family History (Updated 09/11/23 @ 11:47 by Liliana Gonzalez NP) Father No problems noted. 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 This patient meets criteria for LDCT for lung cancer screening purposes and is asymptomatic. Offered smoking cessation. Patient has been scheduled for a low dose chest CT for screening purposes at [facility]. We discussed how the results will be obtained depending on CT findings. RADS 1 and RADS 2 will receive a letter with results and will follow up for annual LDCT. Patient informed they will be contacted at later date to schedule upcoming LDCT scan. RADS 3 and RADS 4 will receive a telephone call, or an office visit after reviewing case at our Lung Cancer Conference to determine when the next LDCT will be scheduled or further interventions that may be needed. Discussed importance of screening program and compliance with yearly LDCT scan as scheduled. Risks, benefits, and alternatives were discussed in detail and patient agrees to proceed. Risks discussed include but are not limited to: radiation exposure and possibility of additional intervention for benign disease. Benefits include detection of lung cancer at an early stage. A copy of today's visit and LDCT results will be sent to patient's PCP. Incidental findings on LDCT are PCP's responsibility. If there are incidental findings, our office will ensure that PCP office is aware of these findings. All questions were answered and patient is in agreement of plan. Coding Level of Care Code Lung Cancer Screening G0296 Diagnoses Nicotine dependence, cigarettes, uncomplicated F17.210
== END 2023-09-11 11:04 | disposition home or self-care (01) ==
PROVIDERS: PCP Family Medicine; Referring Provider Family Medicine; Visit Provider Nurse Practitioner Family
DX: F17.210 Nicotine dependence, cigarettes, uncomplicated (principal)
CPT/HCPCS: G0296

== ENCOUNTER 2023-09-11 11:19 | Outpatient (REF) | payer BC, SELFPAY ==
--- NOTE | ~2023-09-11 | CT_ITS ---
EXAMINATION: CT CHEST SCREENING CLINICAL INFORMATION: Current smoker with 55 pack year history. COMPARISON: None available. TECHNIQUE: Multidetector volumetric CT imaging of the chest is performed without contrast using low dose technique. Additional 2D coronal and sagittal reformatted images and axial 3D maximum intensity projection (MIP) images are generated on the CT workstation. This CT examination was performed using dose optimization techniques as appropriate, variously including the following: *Automated exposure control *Adjustment of mA and/or kV according to patient size (this includes techniques or standardized protocols for targeted exams where dose is matched to indication/reason for exam; i.e. extremities or head) *Use of iterative reconstruction technique DLP: 58 mGy-cm FINDINGS: FORM DRAFTER: No acute cardiopulmonary disease. Cholecystectomy clips. LUNGS: Trachea and bronchi are patent. Diffuse mild bronchial wall thickening. Mild centrilobular emphysema. Scattered atelectasis. No suspicious lung lesions. MEDIASTINUM: Unremarkable thyroid. Mildly prominent lymph nodes measuring 0.5 x 2 cm in the prevascular space, 1.2 cm in the right paratracheal region and 1.1 cm short axis subcarinal location. Nonaneurysmal aorta with atherosclerotic calcifications. Ectatic pulmonary arteries. CORONARY ARTERY CALCIFICATION: Minimal visualized on this study. PLEURA: There is no pleural effusion. No pleural mass or thickening. AXILLA: No lymphadenopathy. UPPER ABDOMEN: Status post cholecystectomy. OSSEOUS STRUCTURES: No suspicious osseous lesions. CT/CT lung screening IMPRESSION: No lung nodules. Nonspecific mediastinal lymph nodes. ASSESSMENT: Lung-RADS category 1: Negative RECOMMENDATION: Routine annual low-dose CT screening in 12 months.
== END 2023-09-11 11:20 | disposition home or self-care (01) ==
LOC: HO.CT 11:19
PROVIDERS: PCP Family Medicine; Visit Provider Nurse Practitioner Family
DX: Z12.2 Encounter for screening for malignant neoplasm of respiratory organs (principal); Z87.891 Personal history of nicotine dependence
CPT/HCPCS: 71271; G0296

== ENCOUNTER 2023-09-11 16:03 | Outpatient (AMB) | payer BC, SELFPAY ==
[2023-09-11 16:10] VITALS: BP 115/68; PULSE 75; BMI 30.8
--- NOTE | 2023-09-11 16:10 | A.OFFVIS_ITS ---
Intake Vital Signs 09/11/23 16:10 Height 5 ft 6 in Weight 190 lb 14.725 oz BMI 30.8 BP 115/68 Blood Pressure Location Lt brachial Position Sitting Pulse 75 Intake Visit Reasons: 6 mnth f/u Intake Note: Jessenia presents to in office visit today in 6 months follow up of IBS. CC: Patient states she is doing very good with Creon and Linzess. She denies having any new GI concerns. 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 Patient was encouraged to increase fluid intake and activity to promote better bowel motility. Patient is working hard on trying to lose weight. Pancreatic insufficiency Continue Creon with meals. Patient is tolerating it well. Denies any abdominal pain or discomfort IBS (irritable bowel syndrome) Continue low FODMAP diet. Avoid food that is high in fat. Diagnosed with pancreatic insufficiency, continue enzymes Status post colonoscopy No polyps found, moderate diverticulosis to live side of the colon. Small internal hemorrhoids. Due to previously diagnosed with tubular adenoma patient will repeat colonoscopy in 5 years, sooner if clinically necessary Alcohol induced fatty liver Continue avoiding alcohol. Patient was encouraged to get her blood work done. CBC, CMP ordered. Will look at her liver enzymes when patient will do her blood work. I will see patient in 6 months, sooner on as needed basis. Patient is agreeable to this plan and verbalizes understanding of instructions. She was given the opportunity to ask questions and all questions answered. TODAY'S VISIT Patient is here today for follow-up. Patient is accompanied by her . Patient reports that she has been doing very well. Take Creon with each meal and her symptoms of postprandial abdominal bloating have improved. Patient also is taking Linzess and that is helping her move her bowels better. Patient denies any abdominal pain or discomfort. Denies melena, hematochezia, unintentional weight loss or ribbon denies any dyspepsia, dysphagia or odynophagia. Patient reports to be feeling well. Changed her job where she physical work. Patient reports that she lost 28 lb since last visit. Patient denies any GI concerning symptoms. ? [facility] Medical History Arthritis Tubular adenoma Anxiety Smoker Asthma Fatty liver Hyperlipidemia Hypothyroidism Surgical History Hx of colonoscopy H/O foot surgery History of tonsillectomy History of tubal ligation History of cholecystectomy Family History (Updated 09/11/23 @ 11:47 by Liliana Gonzalez NP) Father No problems noted. 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 Current occupational exposures/hazards: No Sexual orientation: Unable to collect Gender identity: Unable to collect Cognitive needs: No Hearing needs: No Vision needs: No Review of Systems Const Denies weight gain and Denies weight loss ENT Reports no additional complaints, Denies dysphagia and Denies odynophagia Card Reports no additional complaints Resp Reports no additional complaints GI Denies abdominal pain, Denies belching, Denies melena, Denies bloating, Denies change in bowel habits, Denies dysphagia, Denies excessive flatus, Denies dyspepsia, Denies heartburn, Denies diarrhea, Denies loose stools, Denies nausea, Denies odynophagia and Denies vomiting Reports no additional complaints Musc Reports no additional complaints Neuro Reports no additional complaints Psych Reports no additional complaints Endo Reports no additional complaints Physical Exam Vital Signs: Last Vital Signs Pulse 75 09/11/23 16:10 BP 115/68 09/11/23 16:10 BMI result Body Mass Index 30.8 Const General: healthy appearing, no acute distress and well developed Nutritional Appearance: well nourished Orientation/consciousness: patient oriented x3 Resp Effort & Inspection: normal respiratory effort, able to speak in complete sentences, no tracheal deviation and symmetric chest movement Auscultation: clear to auscultation bilaterally Cardio Rate: regular rate GI Inspection: Yes normal to inspection and No distended Palpation (GI): Soft to palpation, not firm, nontender and No hepatosplenomegaly present Auscultation: normal bowel sounds General: Yes no CVA tenderness Back/Spine/Pelvis Back: no CVA tenderness Skin General skin exam: elasticity normal, turgor normal and dry skin Neuro General: patient oriented x3 Psych Appearance: grossly normal Mental Status: mental status grossly normal Assessment & Plan Assessment & Plan (1) Constipation: Code(s): K59.00 - Constipation, unspecified Qualifiers: Constipation type: slow transit constipation Qualified Code(s): K59.01 - Slow transit constipation (2) Pancreatic insufficiency: Code(s): K86.89 - Other specified diseases of pancreas (3) IBS (irritable bowel syndrome): Code(s): K58.9 - Irritable bowel syndrome without diarrhea Qualifiers: Irritable bowel syndrome type: with constipation Qualified Code(s): K58.1 - Irritable bowel syndrome with constipation (4) Status post colonoscopy: Code(s): Z98.890 - Other specified postprocedural states (5) Alcohol induced fatty liver: Code(s): K70.0 - Alcoholic fatty liver Plan Patient can continue Creon and Linzess. Will send patient for liver ultrasound with elastography. Her liver enzymes have been normal. Patient is avoiding alcohol. Lost 28 lb since last visit. Continue healthy diet. Avoid dietary triggers and late night snacking. I will see patient in 1 year. Patient will call me sooner if she will have any GI concerning symptoms. He is agreeable to this plan and verbalizes understanding of instructions he was given the opportunity to ask questions and all questions answered. Thank you for allowing me to participate in her care Orders: Orders US abdomen comp w elastography 09/11/23 R79.89 - Other specified abnormal findings of blood chemistry Medications: Changed From [id number] 36,000-114,000- 180,000 unit (Creon) administer with meals and/or snacks 1 cap PO QID 120 caps 3RF K86.89 - Other specified diseases of pancreas To [id number] 36,000-114,000- 180,000 unit (Creon) administer with meals and/or snacks 1 cap PO QID 3 months 360 caps 3RF K86.89 - Other specified diseases of pancreas Refilled linaclotide (Linzess) 145 mcg PO DAILY 90 caps 4RF K59.04 - Chronic idiopathic constipation Coding Level of Care Code Est Pt Level 3 (24966) Diagnoses Slow transit constipation K59.01 Constipation type: slow transit constipation Pancreatic insufficiency K86.89 Irritable bowel syndrome with constipation K58.1 Irritable bowel syndrome type: with constipation Status post colonoscopy Z98.890 Alcohol induced fatty liver K70.0 Time Spent (min) 25 Comment 15 minutes spent with patient and additional 10 minutes spent reviewing her records
== END 2023-09-11 16:48 | disposition home or self-care (01) ==
PROVIDERS: PCP Family Medicine; Visit Provider Nurse Practitioner Family
DX: K59.01 Slow transit constipation (principal); K86.89 Other specified diseases of pancreas; K58.1 Irritable bowel syndrome with constipation; Z98.890 Other specified postprocedural states; K70.0 Alcoholic fatty liver
CPT/HCPCS: 99213

== ENCOUNTER 2023-09-21 12:56 | Outpatient (AMB) | payer BC, SELFPAY ==
[2023-09-21 13:17] VITALS: BP 137/65; PULSE 75; O2SAT 97; BMI 31.0
--- NOTE | 2023-09-21 13:17 | MHC.PC.OV ---
Vital Signs 09/21/23 13:17 Height 5 ft 6 in Weight 192 lb 2 oz BMI 31.0 BP 137/65 Blood Pressure Location Lt brachial Position Sitting Pulse 75 Pulse Source Pulse Oximeter Pulse Oximetry (%) 97 Oxygen Delivery Method Room Air Intake Visit Reasons: fmla paperwork Intake Note: Pt presents to the office today for a visit for FMLA paperwork. Allergies No Known Allergies Allergy (Verified 09/21/23 13:19) Tobacco use date assessed: 09/21/23 Dental Screening Dental Screen Date: 09/21/23 Did you have a dental visit in the last 12 months?: Yes Did you have a dental problem in the last 6 months where you did not have access to dental care?: No HPI fmla paperwork HPI Details 58 y/o female presents to f/u FMLA paperwork for significant low back pain that radiates down to her R leg. Pain radiates down to RLE - side of thigh and her buttocks as well. She notes she frequently has to lift 50 lb+ boxes above her head. She reports symptoms are exacerbated about 2-3x a month. [facility] Medical History Arthritis Tubular adenoma Anxiety Smoker Asthma Fatty liver Hyperlipidemia Hypothyroidism Surgical History Hx of colonoscopy H/O foot surgery History of tonsillectomy History of tubal ligation History of cholecystectomy Family History Father No problems noted. 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 Lul Lerma, Chayito Dumont, Rambo Gordillo and colleagues, with an educational justus from [employer]. Review of Systems Const Denies chills, Denies fatigue, Denies fever(s), Denies headache(s) and Denies weakness ENT Denies dizziness and Denies headache(s) Card Denies dyspnea Resp Denies cough, Denies dyspnea, Denies wheezing and Denies other (shortness of breath) Musc Denies numbness and Denies tingling Neuro Denies dizziness, Denies headache(s), Denies numbness, Denies tingling and Denies weakness Psych Denies anxiety and Denies depression Endo Denies fatigue Aller/Immun Denies wheezing Physical exam (Primary Care) Vital Signs: Last Vital Signs Pulse 75 09/21/23 13:17 BP 137/65 09/21/23 13:17 Pulse Ox 97 09/21/23 13:17 Oxygen Delivery Method Room Air 09/21/23 13:17 BMI result Body Mass Index 31.0 Tobacco/Smoking Status: Tobacco use Status Tobacco use date assessed 09/21/23 09/21/23 13:21 Patient Tobacco Use Status Current everyday Tobacco 09/21/23 13:21 Tobacco use type Cigarette 09/21/23 13:21 e-Cigarette/Vaping Use Never Used 09/21/23 13:21 Thrive Assessment: Date of Thrive Assessment Date Thrive assessed 08/26/21 09/21/23 13:21 Const General: well developed; No acute distress Nutritional Appearance: well nourished Orientation/consciousness: patient oriented x3 [facility] Head: Yes normocephalic and Yes atraumatic Eyes General: appearance normal, both eyes and all related structures Pupils: Equal, round and reactive pupils present EOM: EOMs intact bilaterally Resp Effort & Inspection: normal respiratory effort Neuro General: patient oriented x3 and gait normal Cranial nerves: Yes Equal, round and reactive pupils present Psych Affect: normal affect Assessment and Plan Assessment & Plan (1) Lumbar radiculopathy, right: Code(s): M54.16 - Radiculopathy, lumbar region Plan: Patient?with?diffuse?spondylolysis?and?a?grade?2?spondylolisthesis?L5-S1?with?low?back?pain?and?radicular?symptoms?radiating?into?right?buttock,?hip?and?anterior?thigh?to?the?knee. She?is?followed?by?new[facility] She?is?taking?ibuprofen?and?topical?diclofenac. Will?trial?gabapentin?at?bedtime?for?additional?relief?when?trying?to?sleep Continue?following?up?with?orthopedic?as?recommended Will?follow?FMLA?paperwork?today. She?will?need?up?to?3?days?per?month?for?flare-ups?of?her?conditions. She?will?need?up?to?8?hours?per?day. Will?follow-up?in?6?months. (2) Low back pain: Code(s): M54.50 - Low back pain, unspecified Plan: As?above (3) Spondylolysis of lumbar region: Code(s): M43.06 - Spondylolysis, lumbar region Plan: As?above (4) Spondylolisthesis at L5-S1 level: Code(s): M43.17 - Spondylolisthesis, lumbosacral region Plan: As?above Medications: New gabapentin 300 mg PO BEDTIME 30 days 30 caps 2RF Coding Level of Care Code Est Pt Level 3 (43434) Diagnoses Lumbar radiculopathy, right M54.16 Low back pain M54.50 Spondylolysis of lumbar region M43.06 Spondylolisthesis at L5-S1 level M43.17
== END 2023-09-21 14:18 | disposition home or self-care (01) ==
PROVIDERS: PCP Family Medicine; Visit Provider Family Medicine
DX: M54.16 Radiculopathy, lumbar region (principal); M54.50 Low back pain, unspecified; M43.06 Spondylolysis, lumbar region; M43.17 Spondylolisthesis, lumbosacral region
CPT/HCPCS: 99213

== ENCOUNTER 2023-12-30 14:55 | Outpatient (REF) | payer BC, SELFPAY ==
--- NOTE | ~2023-12-30 | MM_ITS ---
EXAMINATION: MM DIAGNOSTIC DIGITAL BREAST TOMOSYNTHESIS, LEFT CLINICAL INFORMATION: 6 month follow-up left breast calcifications upper outer quadrant. COMPARISON: Mammography: 06/29/2023, 05/12/2023 (BI-RADS 0), 05/06/2022, 02/14/2021. TECHNIQUE: Digital breast tomosynthesis is performed in both the craniocaudal and mediolateral oblique views along with computer-aided detection (CAD). Synthesized 2D images are generated from the tomosynthesis. In addition, 2-D spot magnification left CC and ML views were also performed. FINDINGS: There are scattered areas of fibroglandular density (ACR BI-RADS breast composition Category b). There are scattered loosely grouped calcifications in the upper outer left breast, at least a few which layer on the 90 degree mediolateral view, suggesting milk of calcium. These are entirely unchanged from the prior examination without tight grouping, pleomorphism, or suspicious forms or distribution. The parenchymal pattern is unchanged from prior exams in the left breast. MM/MM tomosynthesis diagnostic LT IMPRESSION: -There are no findings suspicious for malignancy left breast. There have been no changes since prior study. -Punctate calcifications which are loosely grouped in the upper outer quadrant of the left breast remain probably benign, and suitable for six-month mammographic follow-up, when the patient is due for bilateral screening. ASSESSMENT: BI-RADS BI-RADS 3 - Probably benign finding(s) - 6 month follow-up suggested RECOMMENDATION: 6 Month F/U This patient's information was entered into a reminder system with a target due date for their next mammogram.
== END 2023-12-30 14:56 | disposition home or self-care (01) ==
LOC: HO.MAMMO 14:55
PROVIDERS: PCP Family Medicine; Visit Provider Family Medicine
DX: R92.1 Mammographic calcification found on diagnostic imaging of breast (principal)
CPT/HCPCS: 77061; 77065

== ENCOUNTER → 2023-12-30 15:00 | Outpatient (BNV) | payer BC, SELFPAY | PROVIDERS: PCP Family Medicine; Visit Provider Radiology Diagnostic Radiology | DX: R92.1 Mammographic calcification found on diagnostic imaging of breast (principal) | CPT/HCPCS: 77061; 77065 ==

== ENCOUNTER 2024-01-28 13:56 | Outpatient (AMB) | payer BC, SELFPAY ==
--- NOTE | 2024-01-28 14:06 | MHC.PC.OV ---
Vital Signs 01/28/24 14:08 Height 5 ft 6 in Weight 197 lb BMI 31.8 BP 108/64 Blood Pressure Location Lt brachial Position Sitting Pulse 72 Pulse Source Pulse Oximeter Pulse Oximetry (%) 97 Oxygen Delivery Method Room Air Intake Visit Reasons: Med Review Intake Note: Patient is here to follow up on a med review, but stated she did not have time to get her labs. She did, however wants to talk about her knee pain. Allergies No Known Allergies Allergy (Verified 01/28/24 14:16) Tobacco use date assessed: 09/21/23 Dental Screening Dental Screen Date: 09/21/23 HPI Med Review HPI Details Pt presents to f/u chronic conditions. She has an appt. with orthopedics for her knees and back. She notes recent MRI but I do not see the results yet. She reports ongoing knee pain and is not sleeping well at night due to the pain. She has trialed gabapentin and heating pads with no relief. She has had shots in her knees before. She sees her liquified natural gas specialist again in 3 weeks. [facility] Medical History Arthritis Tubular adenoma Anxiety Smoker Asthma Fatty liver Hyperlipidemia Hypothyroidism Surgical History Hx of colonoscopy H/O foot surgery History of tonsillectomy History of tubal ligation History of cholecystectomy Family History Father No problems noted. 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 Lul Lerma, Chayito Dumont, Rambo Gordillo and colleagues, with an educational justus from [employer]. Review of Systems Const Denies chills, Denies fatigue, Denies fever(s), Denies headache(s) and Denies weakness ENT Denies dizziness and Denies headache(s) Card Denies chest pain, Denies lightheadedness, Denies dyspnea and Denies other (Palpitations) Resp Denies cough, Denies dyspnea, Denies wheezing and Denies other ( shortness of breath) Musc Denies numbness and Denies tingling Neuro Denies dizziness, Denies headache(s), Denies numbness, Denies tingling, Denies paresthesias and Denies weakness Psych Denies anxiety and Denies depression Endo Denies fatigue Aller/Immun Denies wheezing Physical exam (Primary Care) Vital Signs: Last Vital Signs Pulse 72 01/28/24 14:08 BP 108/64 01/28/24 14:08 Pulse Ox 97 01/28/24 14:08 Oxygen Delivery Method Room Air 01/28/24 14:08 BMI result Body Mass Index 31.8 Tobacco/Smoking Status: Tobacco use Status Tobacco use date assessed 09/21/23 01/28/24 14:07 Patient Tobacco Use Status Current everyday Tobacco 01/28/24 14:07 Tobacco use type Cigarette 01/28/24 14:07 e-Cigarette/Vaping Use Never Used 01/28/24 14:07 Thrive Assessment: Date of Thrive Assessment Date Thrive assessed 08/26/21 01/28/24 14:07 Const General: no acute distress and well developed Nutritional Appearance: well nourished Orientation/consciousness: patient oriented x3 [facility] Head: Yes normocephalic and Yes atraumatic Eyes General: appearance normal, both eyes and all related structures Pupils: Equal, round and reactive pupils present EOM: EOMs intact bilaterally Resp Effort & Inspection: normal respiratory effort Auscultation: clear to auscultation bilaterally Cardio Rate: regular rate Rhythm: regular rhythm Heart sounds: S1 normal heart sound present, S2 normal heart sound present, no gallops, no murmurs and no rubs Neuro General: patient oriented x3 and gait normal Cranial nerves: Yes Equal, round and reactive pupils present Psych Affect: normal affect Assessment and Plan Assessment & Plan (1) Left knee pain: Code(s): M25.562 - Pain in left knee Plan: Worsening?left?knee?pain?which?is?causing?patient?to?lose?sleep She?has?an?appointment?with?her?ortho?specialist?in?February She?has?benefited?from?steroid?injections?in?the?past Will?give?her?a?3?day?course?of?tramadol?and?she?can?start?a?prednisone?taper?at?the?same?time.??She?can?be?in?meloxicam?as?taper?is?finishing?up. Ice/heat Can?also?use?Tylenol Follow-up?with?ortho?as?recommended Medications: New tramadol 50 mg PO BID 3 days PRN 6 tabs 0RF pain prednisone 4 tabs daily for 4 days, 3 tabs daily for 2 days, 2 tabs daily for 2 days, 1 tab daily for 2 days PO daily; 10 days 28 tabs 0RF meloxicam 15 mg PO DAILY 30 days 30 tabs 2RF Coding Level of Care Code Est Pt Level 3 (29861) Diagnoses Left knee pain M25.562
[2024-01-28 14:08] VITALS: BP 108/64; PULSE 72; O2SAT 97; BMI 31.8
== END 2024-01-28 14:37 | disposition home or self-care (01) ==
PROVIDERS: PCP Family Medicine; Visit Provider Family Medicine
DX: M25.562 Pain in left knee (principal)
CPT/HCPCS: 99213

== ENCOUNTER 2024-01-30 07:12 | Outpatient (REF) | payer BC, SELFPAY ==
[2024-01-30 08:20] LABS: Alanine Aminotransferase 19 U/L (0-31); Albumin Level 4.5 g/dL (3.5-5.0); Alkaline Phosphatase 79 U/L (39-117); Anion Gap 12 (12-20); Aspartate Amino Transferase 19 U/L (5-31); Bilirubin Total 0.8 mg/dL (0.0-1.0); Blood Urea Nitrogen 15 mg/dL (9-16); Calcium 10.5 mg/dL (8.4-10.2); Carbon Dioxide 27 mmol/L (22-29); Chloride 104 mmol/L (96-108); Cholesterol 165 mg/dL (<200); Estimated Glomerular Filt Rate > 60; Glucose Fasting 98 mg/dL (60-99); HDL Cholesterol 60 mg/dL (>40); LDL Cholesterol Calculated 91 mg/dL (<100); Sodium 138 mmol/L (135-145); Total Protein 7.2 g/dL (6.5-8.0); Triglycerides 74 mg/dL (<150)
[2024-01-30 08:37] LABS: Free T4 (Free Thyroxine) 1.14 ng/dL (0.71-1.85)
[2024-01-31 13:27] LABS: Triiodothyronine T3 Total 100 ng/dL (76-181)
== END 2024-01-30 07:13 | disposition home or self-care (01) ==
LOC: HO.LAB 07:12
PROVIDERS: PCP Family Medicine; Visit Provider Family Medicine
DX: Z00.00 Encounter for general adult medical examination without abnormal findings (principal); E78.5 Hyperlipidemia, unspecified; E03.9 Hypothyroidism, unspecified
CPT/HCPCS: 36415; 80053; 80061; 84439; 84443; 84480

== ENCOUNTER 2024-03-28 15:49 | Outpatient (AMB) | payer BC, SELFPAY ==
--- NOTE | 2024-03-28 16:07 | MHC.PC.OV ---
Vital Signs 03/28/24 16:12 03/28/24 16:15 Height 5 ft 6 in Weight 189 lb 6 oz BMI 30.6 BP 100/50 L 108/60 Blood Pressure Location Lt brachial Lt brachial Position Sitting Sitting Respiration 16 Pulse 77 Pulse Source Pulse Oximeter Temp 98 F Temp Source Tympanic Pulse Oximetry (%) 97 Oxygen Delivery Method Room Air Intake Visit Reasons: follow up and thytoid levels Intake Note: F/U FOR THYROID LEVELS Allergies No Known Allergies Allergy (Verified 03/28/24 16:10) Tobacco use date assessed: 09/21/23 Dental Screening Dental Screen Date: 09/21/23 HPI follow up and thytoid levels HPI Details 59 y/o female presents to f/u labs. Labs drawn 01/30/24. Reviewed labs with pt. Mildly elevated calcium at 10.5. Triglycerides 74. TC 165. LDL 91. HDL 60. She is on artovastatin 10mg daily. TSH 0.50. She is on levothyroxine 200mcg daily. HPI Comments History of Present Illness Details Documentation assistance for Jone Lomeli MD, was provided by Gavin Oh, Digital Art Director on 03/28/2024 at 4:53 PM EST. I, Dr. Lomeli, have read, observed, and verified documentation. [facility] Medical History Arthritis Tubular adenoma Anxiety Smoker Asthma Fatty liver Hyperlipidemia Hypothyroidism Surgical History Hx of colonoscopy H/O foot surgery History of tonsillectomy History of tubal ligation History of cholecystectomy Family History Father No problems noted. 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 Lul Lerma, Chayito Dumont, Rambo Gordillo and colleagues, with an educational justus from [email or web address]. Review of Systems Const Denies chills, Denies fatigue, Denies fever(s), Denies headache(s) and Denies weakness ENT Denies dizziness and Denies headache(s) Card Denies dyspnea Resp Denies cough, Denies dyspnea, Denies wheezing and Denies other (shortness of breath) Musc Denies numbness and Denies tingling Neuro Denies dizziness, Denies headache(s), Denies numbness, Denies tingling and Denies weakness Psych Denies anxiety and Denies depression Endo Denies fatigue Aller/Immun Denies wheezing Physical exam (Primary Care) Vital Signs: Last Vital Signs Temp 98 F 03/28/24 16:12 Pulse 77 03/28/24 16:12 Resp 16 03/28/24 16:12 BP 108/60 03/28/24 16:15 Pulse Ox 97 03/28/24 16:12 Oxygen Delivery Method Room Air 03/28/24 16:12 BMI result Body Mass Index 30.6 Tobacco/Smoking Status: Tobacco use Status Tobacco use date assessed 09/21/23 03/28/24 16:09 Patient Tobacco Use Status Current everyday Tobacco 03/28/24 16:09 Tobacco use type Cigarette 03/28/24 16:09 e-Cigarette/Vaping Use Never Used 03/28/24 16:09 Thrive Assessment: Date of Thrive Assessment Date Thrive assessed 08/26/21 03/28/24 16:09 Const General: well developed; No acute distress Nutritional Appearance: well nourished Orientation/consciousness: patient oriented x3 HENMT Head: Yes normocephalic and Yes atraumatic Eyes General: appearance normal, both eyes and all related structures Pupils: Equal, round and reactive pupils present EOM: EOMs intact bilaterally Resp Effort & Inspection: normal respiratory effort Auscultation: clear to auscultation bilaterally Cardio Rate: regular rate Rhythm: regular rhythm Heart sounds: S1 normal heart sound present, S2 normal heart sound present, no gallops, no murmurs and no rubs Neuro General: patient oriented x3 and gait normal Cranial nerves: Yes Equal, round and reactive pupils present Psych Affect: normal affect Assessment and Plan Assessment & Plan (1) Hyperlipidemia: Code(s): E78.5 - Hyperlipidemia, unspecified Plan: Lipids?are?well?controlled?on?atorvastatin?10?mg?daily Continue?current?medication Encouraged?ongoing?exercise (2) Hypothyroidism: Code(s): E03.9 - Hypothyroidism, unspecified Plan: Thyroid?levels?all?within?normal?range Continue?levothyroxine?as?prescribed Orders: Orders Comprehensive [place]. Panel Fast Today Z00.00 - Encounter for general adult medical examination without abnormal findings Complete Blood Count Auto Diff Today Z00.00 - Encounter for general adult medical examination without abnormal findings Free T4 (Free Thyroxine) Today E03.9 - Hypothyroidism, unspecified Triiodothyronine T3 Total Today E03.9 - Hypothyroidism, unspecified Thyroid Stimulating Hormone Today E03.9 - Hypothyroidism, unspecified Lipid Panel Today Z00.00 - Encounter for general adult medical examination without abnormal findings Microalbumin, Random (w Creat) Today I10 - Essential (primary) hypertension UA and rflx microscopic Today Z00.00 - Encounter for general adult medical examination without abnormal findings Coding Level of Care Code Est Pt Level 3 (57474) Diagnoses Hyperlipidemia E78.5 Hypothyroidism E03.9
[2024-03-28 16:12] VITALS: BP 100/50; PULSE 77; RESP 16; TEMP 36.6; O2SAT 97; BMI 30.6
[2024-03-28 16:15] VITALS: BP 108/60
== END 2024-03-28 17:01 | disposition home or self-care (01) ==
PROVIDERS: PCP Family Medicine; Visit Provider Family Medicine
DX: E78.5 Hyperlipidemia, unspecified (principal); E03.9 Hypothyroidism, unspecified
CPT/HCPCS: 99213

== ENCOUNTER 2024-08-15 11:26 | Outpatient (REF) | payer BC, SELFPAY ==
--- NOTE | ~2024-08-15 | MM_ITS ---
EXAMINATION: MM DIAGNOSTIC DIGITAL BREAST TOMOSYNTHESIS, BILATERAL CLINICAL INFORMATION: Grouped calcifications in the upper outer quadrant of the left breast 1 year diagnostic follow. COMPARISON: Mammography: Comparison is made with relevant prior exams. TECHNIQUE: Digital breast mammography with tomosynthesis is performed in both the craniocaudal and mediolateral oblique views along with computer-aided detection (CAD). FINDINGS: The breasts are heterogeneously dense, which may obscure small masses (ACR BI-RADS breast composition Category c). There are a few grouped punctate calcifications in the upper outer quadrant posterior depth which are not significantly changed from prior magnification views dating back for one year. No suspicious masses or other abnormal findings. Results are provided to the patient at time of visit by the technologist. MM/MM tomosynthesis diagnostic BI IMPRESSION: Grouped calcifications in the upper outer left breast stable for one year. Recommend diagnostic left breast mammogram with magnification views in one year to demonstrate 2 years of stability when the patient will be due for bilateral mammography. ASSESSMENT: BI-RADS BI-RADS 3 - Probably benign finding(s) - 12 month follow-up suggested RECOMMENDATION: 12 month diagnostic follow up This patient's information was entered into a reminder system with a target due date for their next mammogram. Electronically signed by: Lucila Winters DO 08/15/2024 11:59 AM QUITA
== END 2024-08-15 11:27 | disposition home or self-care (01) ==
LOC: HO.MAMMO 11:26
PROVIDERS: PCP Family Medicine; Visit Provider Family Medicine
DX: R92.1 Mammographic calcification found on diagnostic imaging of breast (principal); R92.333 Mammographic heterogeneous density, bilateral breasts
CPT/HCPCS: 77062; 77066

== ENCOUNTER → 2024-08-15 11:45 | Outpatient (BNV) | payer BC, SELFPAY | PROVIDERS: PCP Family Medicine; Visit Provider Internal Medicine | DX: R92.1 Mammographic calcification found on diagnostic imaging of breast (principal) | CPT/HCPCS: 77062; 77066 ==

== ENCOUNTER 2024-09-19 16:06 | Outpatient (REF) | payer BC, SELFPAY | END 2024-09-19 16:07 | disposition home or self-care (01) | LOC: HO.CT 16:06 | PROVIDERS: PCP Family Medicine; Visit Provider Physician Assistant Medical | DX: Z12.2 Encounter for screening for malignant neoplasm of respiratory organs (principal); F17.210 Nicotine dependence, cigarettes, uncomplicated | CPT/HCPCS: 71271 ==

== ENCOUNTER → 2024-09-19 16:07 | Outpatient (BNV) | payer BC, SELFPAY | PROVIDERS: PCP Family Medicine; Visit Provider Nuclear Medicine | DX: F17.210 Nicotine dependence, cigarettes, uncomplicated (principal) | CPT/HCPCS: 71271 ==

== ENCOUNTER 2024-09-24 07:05 | Outpatient (REF) | payer BC, SELFPAY ==
[2024-09-24 07:24] LABS: MANUAL DIFF FLAG NO
[2024-09-24 08:09] LABS: Basophils Absolute Auto 0.1 X10*3/uL (0.0-0.2); Basophils Percent Auto 0.6 % (0-2); Eosinophils Absolute Auto 0.2 X10*3/uL (0.0-0.4); Eosinophils Percent Auto 1.9 % (0-4); Hematocrit 44.6 % (37.0-47.0); Imm Gran Abs Auto 0.03 X10*3/uL (0.00-0.03); Imm Gran Pct Auto 0.4 % (0.0-0.4); Lymphocytes Absolute Auto 1.8 X10*3/uL (1.2-4.9); Lymphocytes Percent Auto 21.4 % (20-40); Mean Corpuscular HGB Conc 33.6 g/dl (31.0-35.0); Mean Corpuscular Hemoglobin 29.6 pg (27.0-33.0); Mean Corpuscular Volume 88.1 fL (80.0-98.0); Mean Platelet Volume 10.3 fL (9.4-12.3); Monocytes Absolute Auto 0.4 X10*3/uL (0.1-1.2); Monocytes Percent Auto 5.2 % (2-11); Neutrophils Percent Auto 70.5 % (45-73); Platelet Count 205 X10*3/uL (160-400); Red Blood Count 5.06 X10*6/uL (4.20-5.50); Red Cell Distribution Width 12.7 % (11.0-16.0); White Blood Count 8.4 X10*3/uL (4.8-10.8)
[2024-09-24 08:23] LABS: Appearance Urine Clear; Color Urine Yellow; Glucose Urine UA Negative (Negative); Leukocyte Esterase Urine Small (1+) (Negative); Nitrite Urine Negative (Negative); Specific Gravity - Urine 1.015 (1.005-1.025); UMIC TRIGGER UA YES; Urine Blood Negative (Negative); Urine Ketones Negative (Negative); Urine Protein Negative (Neg-Trace)
[2024-09-24 08:30] LABS: Bacteria Urine Trace (None Seen); Hyaline Casts Urine 0-2 /LPF (0-2); RBC Urine 0-2 /HPF (0-2)
[2024-09-24 08:39] LABS: Alanine Aminotransferase 15 U/L (0-31); Albumin Level 4.4 g/dL (3.5-5.0); Alkaline Phosphatase 81 U/L (39-117); Anion Gap 14 (12-20); Aspartate Amino Transferase 22 U/L (5-31); Bilirubin Total 0.8 mg/dL (0.0-1.0); Blood Urea Nitrogen 14 mg/dL (9-16); Calcium 10.1 mg/dL (8.4-10.2); Carbon Dioxide 27 mmol/L (22-29); Chloride 109 mmol/L (96-108); Cholesterol 222 mg/dL (<200); Estimated Glomerular Filt Rate > 60; Glucose Fasting 90 mg/dL (60-99); HDL Cholesterol 56 mg/dL (>40); LDL Cholesterol Calculated 147 mg/dL (<100); Potassium 5.6 mmol/L (3.3-5.1); Sodium 144 mmol/L (135-145); Total Protein 7.4 g/dL (6.5-8.0); Triglycerides 98 mg/dL (<150)
[2024-09-24 08:55] LABS: Free T4 (Free Thyroxine) 1.51 ng/dL (0.71-1.85)
[2024-09-24 09:17] LABS: Creatinine Urine 113.53 mg/dL; Microalbumin Urine < 5.0 mg/L
[2024-09-25 23:35] LABS: Triiodothyronine T3 Total 108 ng/dL (76-181)
== END 2024-09-24 07:06 | disposition home or self-care (01) ==
LOC: HO.LAB 07:05
PROVIDERS: PCP Family Medicine; Visit Provider Family Medicine
DX: Z00.00 Encounter for general adult medical examination without abnormal findings (principal); E03.9 Hypothyroidism, unspecified; I10 Essential (primary) hypertension
CPT/HCPCS: 36415; 80053; 80061; 81001; 82043; 82570; 84439; 84443; 84480; 85025

== ENCOUNTER 2024-09-29 15:42 | Outpatient (AMB) | payer BC, SELFPAY ==
--- NOTE | 2024-09-29 16:06 | A.OFFPC_ITS ---
Vital Signs 09/29/24 16:13 Height 5 ft 6 in Weight 189 lb BMI 30.5 BP 100/60 Blood Pressure Location Rt brachial Position Sitting Respiration 14 Pulse 77 Pulse Source Pulse Oximeter Temp 99.2 F Temp Source Oral Pulse Oximetry (%) 98 Oxygen Delivery Method Room Air Intake Visit Reasons: annual Intake Note: annual Job Analyst Required: No Allergies No Known Allergies Allergy (Verified 09/29/24 16:07) Tobacco use date assessed: 09/29/24 Dental Screening Dental Screen Date: 09/29/24 Did you have a dental visit in the last 12 months?: Yes Did you have a dental problem in the last 6 months where you did not have access to dental care?: No Was dental information given to patient?: No HPI annual HPI Details 59 y/o female presents for a CPE with f/ u labs and health maintenance. Labs drawn 09/24/24. Reviewed labs with pt. Triglycerides 98. TC 222. LDL 147. HDL 56. TSH 0.10 uIU/mL. She is on levothyroxine 200 mcg daily. Reports ever since her surgery she has been having complaints of LE swelling. [facility] Medical History (Updated 09/29/24 @ 16:47 by Gavin Oh) Fusion of lumbar spine Nicotine dependence, cigarettes, uncomplicated Arthritis Tubular adenoma Anxiety Asthma Fatty liver Hyperlipidemia Hypothyroidism Surgical History Hx of colonoscopy H/O foot surgery History of tonsillectomy History of tubal ligation History of cholecystectomy Family History Father No problems noted. 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 62747 - PHQ-9 Billing: Patient declined-do not bill Source: Developed by Drs. Lul Lerma, Chayito Dumont, Rambo Gordillo and colleagues, with an educational justus from [employer]. Thrive Questionnaire Date Thrive assessed: 08/26/21 I am a: Patient What is your living situation today?: I have a steady place to live Within the past 12 months, did the food you bought not last and you didn't have the money to get more?: Never true Within the past 12 months, did you worry whether your food would run out before you got money to buy more?: Never true Do you have trouble paying for medicines?: No Do you have trouble getting transportation to medical appointments?: No Do you have trouble paying your heating and electricity bill?: No Do you have trouble taking care of your child, family member or friend?: No Do you have trouble with day-to-day activities such as bathing, preparing meals, shopping, managing finances, etc.?: No Are you currently unemployed and looking for a job?: Yes Are you interested in more education?: No Please select the resources that you would like help with: Job search/training Currently or been in a relationship where the following occur: I choose not to answer THRIVE Score: 0 AUDIT C Alcohol Use Questionnaire (AUDIT-C) 1. How often do you have a drink containing alcohol?: Never 3. How often do you have six or more drinks on one occasion?: Never Total Score: 0 Score Reviewed/Action Taken: Yes MADI-7 AMB Questionnaire MADI-7 Date MADI - 7 assessed: 09/29/24 Feeling nervous, anxious, or on edge: 1 = Several days Not being able to stop or control worryin = Not at all Worrying too much about different things: 2 = More than half the days Trouble relaxin = Not at all Being so restless that it is hard to sit still: 0 = Not at all Becoming easily annoyed or irritable: 1 = Several days Feeling afraid as if something awful might happen: 0 = Not at all Total MADI-7 score (0-4 normal; 5-9 mild; 10-14 moderate; 15-21 severe): 4 Source: Developed by Drs. Lul Lerma, Chayito Dumont, Rambo Gordillo and colleagues, with an educational justus from [employer]. MADI-7 Assessment Billing MADI-7 Assessment Tool: MADI-7 Assessment 02740 Review of Systems Const Denies chills, Denies fatigue, Denies fever(s), Denies headache(s) and Denies weakness Eyes Denies change in vision ENT Denies dizziness, Denies headache(s), Denies hearing loss, Denies nasal congestion, Denies sinus pain, Denies sinus pressure and Denies sore throat Card Denies chest pain, Denies lightheadedness, Denies dyspnea and Denies other (palpitations) Resp Denies cough, Denies dyspnea and Denies wheezing GI Denies abdominal pain, Denies melena, Denies hematochezia, Denies change in bowel habits, Denies dyspepsia and Denies nausea Denies hematuria and Denies dysuria Musc Denies abnormal gait, Denies myalgias, Denies arthralgias, Denies numbness and Denies tingling Skin/Breast Denies rash, Denies unusual bruising and Denies wounds Neuro Denies abnormal gait, Denies dizziness, Denies headache(s), Denies memory loss, Denies numbness, Denies Sensory deficit (Neuro), Denies tingling and Denies weakness Psych Denies anxiety, Denies depression and Denies memory loss Endo Denies cold intolerance, Denies fatigue, Denies heat intolerance, Denies polydipsia and Denies polyuria Aaron/Lymph Denies easy bleeding and Denies easy bruising Aller/Immun Denies wheezing Physical exam (Primary Care) Vital Signs: Last Vital Signs Temp 99.2 F 09/29/24 16:13 Pulse 77 09/29/24 16:13 Resp 14 09/29/24 16:13 BP 100/60 09/29/24 16:13 Pulse Ox 98 09/29/24 16:13 Oxygen Delivery Method Room Air 09/29/24 16:13 BMI result Body Mass Index 30.5 Tobacco/Smoking Status: Tobacco use Status Tobacco use date assessed 09/29/24 09/29/24 16:17 Patient Tobacco Use Status Current everyday Tobacco 09/29/24 16:17 Tobacco use type Cigarette 09/29/24 16:17 e-Cigarette/Vaping Use Never Used 09/29/24 16:17 Thrive Assessment: Date of Thrive Assessment Date Thrive assessed 08/26/21 09/29/24 16:17 Currently or been in a relationship where the following occur: I choose not to answer Const General: no acute distress, well developed, alert and awake Nutritional Appearance: well nourished Orientation/consciousness: patient oriented x3 HENMT Head: Yes normocephalic and Yes atraumatic Ears: hearing grossly normal bilaterally and TM's normal bilaterally General nose exam: Normal external nose present and Normal nares present Mouth: Normal oral and palatal mucosa present and moist mucous membranes Teeth and gingiva: dentition normal Throat: Yes posterior oropharynx normal Eyes General: appearance normal, both eyes and all related structures Pupils: Equal, round and reactive pupils present and Pupil accommodation reflex normal EOM: EOMs intact bilaterally Neck Neck: Yes normal visual inspection, Yes no lymphadenopathy and Yes trachea midline Thyroid: Thyroid normal Carotids: no bruits Lymphatic: no lymphadenopathy noted Chest Chest palpation & inspection: normal inspection of the chest Resp Effort & Inspection: normal respiratory effort Auscultation: clear to auscultation bilaterally Cardio Rate: regular rate Rhythm: regular rhythm Heart sounds: S1 normal heart sound present, S2 normal heart sound present, no gallops, no murmurs and no rubs Bruits: no abdominal aortic bruits and no carotid bruits GI Palpation (GI): No Abdominal aortic bruit present, Soft to palpation, nontender, No hepatosplenomegaly present and No Rebound tenderness present Auscultation: normal bowel sounds General: Yes no CVA tenderness Back/Spine/Pelvis Back: no CVA tenderness Cervical Spine: cervical ROM normal and No Cervical spine tenderness Thoracic/Lumbar Spine: thoraco-lumbar ROM normal, No pain with thoraco-lumbar ROM, No thoracic spinal tenderness and No lumbar spinal tenderness Skin Lesions: no lesions Rashes: no rashes Trauma: no lacerations or abrasions Wounds: no wounds Nails: normal Neuro General: patient oriented x3 Cranial nerves: Yes Equal, round and reactive pupils present Cognition (Neuro): normal cognition Gait exam (Neuro): Normal gait present Motor exam (neuro): 5/5 motor strength present throughout Sensory Exam: No Sensory deficit (Neuro) Deep tendon reflexes (DTR's): Right patellar reflex intensity grade: 2+ and Left patellar reflex intensity grade: 2+ Extrem General: Yes normal to inspection and No edema Psych Appearance: grossly normal Affect: normal affect Attitude: cooperative Thought process: Normal thought process present Coding Level of Care Code Est Pt Level 3 (73834) Est Pt Prev Care 40-64y(90557) Diagnoses Adult general medical exam Z00.00 Hyperlipidemia E78.5 Hypothyroidism E03.9 Screening for colon cancer Z12.11 Breast cancer screening by mammogram Z12.31 Screening for osteoporosis Z13.820 Additional Codes MADI-7 Assessment Billing - MADI-7 Assessment Tool: MADI-7 Assessment 16637 ([id number]) Assessment & Plan Assessment & Plan (1) Adult general medical exam: Code(s): Z00.00 - Encounter for general adult medical examination without abnormal findings Category: Medical Plan: 59-year-old?female?presents?for?complete?physical?exam (2) Hyperlipidemia: Code(s): E78.5 - Hyperlipidemia, unspecified Category: Medical Plan: Lipids?are?elevated?but?were?okay?at?last?check She?had?a?recent?surgery?and?has?fairly?immobilized. She?will?work?a t?a?diet?low?in?saturated?fats?and?cholesterol?and?regular?activity/exercise.??W ill?recheck?again?in?a?couple?of?months (3) Hypothyroidism: Code(s): E03.9 - Hypothyroidism, unspecified Category: Medical Plan: TSH?is?mildly?suppressed T4?and?T3?are?within?normal?limits She?had?recent?surgery?and?was?mobilized.??Will?recheck?thyroid?hormone?levels?i n?couple?of?months (4) Screening for colon cancer: Code(s): Z12.11 - Encounter for screening for malignant neoplasm of colon Category: Medical Plan: Last?colonoscopy?in?2020.??Followed?by?[facility] Follow-up?with?Gastroenterology?as?recommended (5) Breast cancer screening by mammogram: Code(s): Z12.31 - Encounter for screening mammogram for malignant neoplasm of breast Category: Medical Plan: Most?recent?mammogram BI-RADS?3?and?recommended?annual?follow-up?which?is?already?ordered And?scheduled. (6) Screening for osteoporosis: Code(s): Z13.820 - Encounter for screening for osteoporosis Category: Medical Plan: Patient?had?a?bone?density?test?after?menopause?this?was?negative. Will?continue?screening?at?age?64 Does?have?low?vitamin-D?levels?however?and?was?given?a?vitamin-D?supplement.??Ch ecking?vitamin-D?level?with?next?lab?draw Orders: Orders Free T4 (Free Thyroxine) Today E03.9 - Hypothyroidism, unspecified Thyroid Stimulating Hormone Today E03.9 - Hypothyroidism, unspecified Triiodothyronine T3 Total Today E03.9 - Hypothyroidism, unspecified Basic Metabolic Panel Today E03.9 - Hypothyroidism, unspecified, Z00.00 - Encounter for general adult medical examination without abnormal findings Lipid Panel Today E78.5 - Hyperlipidemia, unspecified, Z00.00 - Encounter for general adult medical examination without abnormal findings Vitamin D 25-OH Total Today E55.9 - Vitamin D deficiency, unspecified, E78.5 - Hyperlipidemia, unspecified
[2024-09-29 16:13] VITALS: BP 100/60; PULSE 77; RESP 14; TEMP 37.3; O2SAT 98; BMI 30.5
--- OUTSIDE RECORDS SUMMARY | 2024-09-29 16:40 | XMS_ITS | Clinical Summary ---
Author Organization [facility], Address [address] [place] [address] Phone Care Team Providers Care Entry Level Software Developer Name Role Phone Unavailable Primary Care Provider Unavailabl e Allergies No known active allergies Medications levothyroxine (SYNTHROID, LEVOTHROID) 175 MCG tablet Take 1 tablet by mouth every morning Active PARoxetine (PAXIL) 40 MG tablet Take 40 mg by mouth in the morning. 8 Active albuterol HFA (PROVENTIL HFA;VENTOLIN HFA) 108 (90 Base) MCG/ACT inhaler Inhale 2 puffs every 6 (six) hours if needed for wheezing Active linaCLOtide (Linzess) 145 MCG capsule Take 145 mcg by mouth 1 (one) time each day Active Fluticasone-Marcelo meterol (Wixela Inhub) 250-50 MCG/ACT aerosol powder Inhale 1 puff in the morning and 1 puff in the evening. Active Varenicline Tartrate, Starter, 0.5 MG X 11 & 1 MG X 42 tablet therapy pack TAKE DIRECTED ON PACKAGE 4 Active Creon [id number] units capsule delayed-release particles 1 CAP ORALLY 4 TIMES A DAY FOR 3 MONTHS ADMINISTER WITH MEALS AND/OR SNACKS 4 Active acetaminophen (TYLENOL) 325 MG tablet Take 500 mg by mouth every 8 (eight) hours if needed for mild pain Active Active Problems Problem Noted Date Diagnosed Date Lumbar radiculopathy 05/04/2024 Spondylolisthesis 05/04/2024 Chronic obstructive pulmonary disease 05/04/2024 Asthma 05/04/2024 Arthritis 05/04/2024 Thyroid dysfunction 05/04/2024 Social History Tobacco Use Types Packs/Day Years Used Date Smoking Tobacco: Never Assessed Comments Unknown Sex and Gender Information Value Date Recorded Sex Assigned at Not on file Legal Sex Female 8:11 AM EDT Gender Identity Not on file Sexual Orientation Not on file Last Filed Vital Signs Vital Sign Reading Time Taken Comments Blood Pressure 116/74 05/20/2024 11:41 AM EDT Pulse 76 05/20/2024 11:41 AM EDT Temperature - - Respiratory Rate - - Oxygen Saturation 99% 05/20/2024 11:41 AM EDT Inhaled Oxygen Concentration - - Weight 87.1 kg (192 lb) 05/20/2024 11:41 AM EDT Height 167.6 cm (5' 6 ) 05/20/2024 11:41 AM EDT Body Mass Index 30.99 05/20/2024 11:41 AM EDT Plan of Treatment Health Maintenance Due Date Last Done Comments Breast Cancer Screening 1965 Colorectal Cancer Screening: Annual FOBT 01/20/2013 Colorectal Cancer Screening: Colonoscopy 01/20/2013 Colorectal Cancer Screening: Sigmoidoscopy 01/20/2013 Influenza Vaccine (#1) 2024 Hepatitis B Vaccine Aged Out No longe r eligible based on patient's age to complete this topic Pneumococcal Vaccine: Pediat rics (0 to 5 Years) and At-Risk Patients (6 to 64 Years) Aged Out No longer eligible b ased on patient's age to complete this topic Insurance [place] [address] [facility]
== END 2024-09-29 17:02 | disposition home or self-care (01) ==
PROVIDERS: PCP Family Medicine; Visit Provider Family Medicine
DX: Z00.00 Encounter for general adult medical examination without abnormal findings (principal); E78.5 Hyperlipidemia, unspecified; E03.9 Hypothyroidism, unspecified; Z12.11 Encounter for screening for malignant neoplasm of colon; Z12.31 Encounter for screening mammogram for malignant neoplasm of breast; Z13.820 Encounter for screening for osteoporosis

== ENCOUNTER → 2024-09-29 15:42 | Outpatient (BNVA) | payer BC, SELFPAY | PROVIDERS: PCP Family Medicine; Visit Provider Family Medicine | DX: Z00.00 Encounter for general adult medical examination without abnormal findings (principal); E78.5 Hyperlipidemia, unspecified; E03.9 Hypothyroidism, unspecified; Z79.899 Other long term (current) drug therapy | CPT/HCPCS: 96127 ==

== ENCOUNTER 2024-11-17 07:59 | Outpatient (REF) | payer OTHER, SELFPAY ==
--- NOTE | ~2024-11-17 | US_ITS ---
EXAMINATION: US ABDOMEN COMPLETE WITH LIVER ELASTOGRAPHY HISTORY: R79.89 - elevated LFTS TECHNIQUE: Real-time grayscale ultrasound imaging of the abdomen was performed and images were reviewed. COMPARISON: Comparison is made with the prior examination dated 04/18/2022. FINDINGS: Liver: The right lobe of the liver measures 18.1 cm in size. The left lobe of the liver measures 8.6 cm in size. The liver demonstrates normal homogeneous echotexture. No focal mass or intrahepatic biliary ductal dilatation is identified. There is normal hepatopedal flow in the portal vein. Ultrasound elastography of the liver was performed with 10 separate measurements of the liver parenchyma with the patient in the supine position. Measurements were obtained approximately 2 cm below Tennille's capsule and perpendicular to the capsule. Images are of satisfactory quality. The median shear wave velocity is 1.11 m/s. The interquartile range/median (IQR/median) is 0.12. Gallbladder and biliary tree: The gallbladder is surgically absent. The common bile duct is normal in caliber measuring 5 mm. Kidneys: The right kidney measures 11.2 cm in length. The left kidney measures 11.8 cm in length. The right kidney is unremarkable. There is a 6 x 4 x 6 mm cyst at the upper pole of the left kidney. A 6 x 4 x 3 mm echogenic focus is noted at the upper pole of the left kidney which could represent a tiny angiomyolipoma. There is no hydronephrosis. Pancreas: The pancreatic head, neck, and body are unremarkable. The pancreatic tail is obscured by bowel gas. Spleen: The spleen is enlarged, measuring 14.4 cm in length. Abdominal aorta and inferior vena cava: The visualized portions of the abdominal aorta and inferior vena cava are normal in caliber. There is no free fluid in the abdomen. US/US abdomen comp w elastography IMPRESSION: 1. Splenomegaly. 2. Possible tiny 6 x 4 x 3 mm angiomyolipoma at the upper pole of the left kidney. The median shear wave velocity in the liver is 1.11 m/s, corresponding to a median liver stiffness of 3.7 kPa. The IQR/median value is 0.12. This is indicative of a quality data set. Findings are indicative of a normal elastography value with a low likelihood of severe fibrosis or cirrhosis. REFERENCE: Society of Radiologists in Ultrasound Liver Stiffness Thresholds (2020): LIVER STIFFNESS THRESHOLDS: *Shear wave velocity less than 1.3 m/s (Liver Stiffness equal or less than 5 kPa): High probability of being normal. *Shear wave velocity less than 1.7 m/s (Liver Stiffness less than 9 kPa): In the absence of other known clinical signs, rules out compensated advanced chronic liver disease. *Shear wave velocity between 1.7-2.1 m/s (Liver Stiffness 9-13 kPa): Suggestive of compensated advanced chronic liver disease but need further test for confirmation. *Shear wave velocity between 2.1-2.4 m/s (Liver Stiffness 13-17 kPa): Rules in compensated advanced chronic liver disease. *Shear wave velocity greater than 2.4 m/s (Liver Stiffness over 17 kPa): Suggestive of clinically significant portal hypertension. QUALITY OF DATA SET: *IQR/Median value equal or less than 0.15 implies a quality data set. *IQR/Median value over 0.15 implies a poor quality data set. SIGNIFICANT CHANGE FROM PRIOR EXAM: Significant change if liver stiffness measurement is 10% or greater from prior exam. OTHER CONSIDERATIONS: The stage of liver fibrosis may be overestimated in the setting of acute hepatitis, liver inflammation, elevated liver function tests, hepatic vascular congestion, obstructive cholestasis, non-fasting state, and infiltrative diseases such as amyloidosis and lymphoma. In some patients with NAFLD, the liver stiffness thresholds for compensated advanced chronic liver disease may be lower. In causes other than viral hepatitis and NAFLD, liver stiffness thresholds are not well established. Electronically signed by: Lul Bullard MD 11/17/2024 10:16 AM EDT
--- OUTSIDE RECORDS SUMMARY | 2024-11-17 08:04 | XMS_ITS | Clinical Summary ---
Author Organization [facility], Address [address] [place] [address] Phone Care Team Providers Care Sectionizer Name Role Phone Unavailable Primary Care Provider [...] TAKE DIRECTED ON PACKAGE 4 Active Creon [id number] units capsule delayed-release particles 1 CAP ORALLY [...] Colorectal Cancer Screening: Sigmoidoscopy 01/20/2013 Influenza Vaccine (Season Ended) 2025 Hepatitis B Vaccine Aged Out No longe r eligible based on patient's age to complete this topic Pneumococcal Vaccine: Peds ( 0 to 5 Years) and At-Risk Patients (6 to 49 Years) Aged Out No longer eligible b ased on patient's age to complete this topic Insurance Pending sale [place] [facility] [address] [facility]
[2024-11-17 09:32] LABS: Appearance Urine Clear; Color Urine Yellow; Glucose Urine UA Negative (Negative); Leukocyte Esterase Urine Negative (Negative); Nitrite Urine Negative (Negative); PH 5.5 (5.0-9.0); Urine Blood Negative (Negative); Urine Ketones Negative (Negative); Urine Protein Negative (Neg-Trace)
[2024-11-17 09:51] LABS: Anion Gap 11 (12-20); Blood Urea Nitrogen 21 mg/dL (9-16); Calcium 9.6 mg/dL (8.4-10.2); Carbon Dioxide 28 mmol/L (22-29); Chloride 106 mmol/L (96-108); Cholesterol 189 mg/dL (<200); Estimated Glomerular Filt Rate > 60; Glucose Random 98 mg/dL (60-115); HDL Cholesterol 50 mg/dL (>40); LDL Cholesterol Calculated 123 mg/dL (<100); Sodium 140 mmol/L (135-145); Triglycerides 84 mg/dL (<150)
[2024-11-17 10:09] LABS: Free T4 (Free Thyroxine) 1.46 ng/dL (0.71-1.85); Thyroid Stimulating Hormone 0.14 uIU/mL (0.32-4.0); Vitamin D 25-OH Total 61.6 ng/mL (>30)
[2024-11-18 05:48] LABS: Triiodothyronine T3 Total 89 ng/dL (76-181)
== END 2024-11-17 08:00 | disposition home or self-care (01) ==
LOC: HO.US 07:59
PROVIDERS: Absent Provider Family Medicine; PCP Family Medicine; Visit Provider Nurse Practitioner Family
DX: Z00.00 Encounter for general adult medical examination without abnormal findings (principal); R79.89 Other specified abnormal findings of blood chemistry; E03.9 Hypothyroidism, unspecified; E78.5 Hyperlipidemia, unspecified; E55.9 Vitamin D deficiency, unspecified
CPT/HCPCS: 36415; 76700; 76981; 80048; 80061; 81003; 82306; 84439; 84443; 84480

== ENCOUNTER → 2024-11-17 08:15 | Outpatient (BNV) | payer OTHER, SELFPAY | PROVIDERS: Absent Provider Family Medicine; PCP Family Medicine; Visit Provider Radiology Diagnostic Radiology | DX: R74.01 Elevation of levels of liver transaminase levels (principal); R16.1 Splenomegaly, not elsewhere classified; D17.71 Benign lipomatous neoplasm of kidney | CPT/HCPCS: 76700; 76981 ==

== ENCOUNTER 2024-12-05 08:21 | Outpatient (AMB) | payer OTHER, SELFPAY ==
--- NOTE | 2024-12-05 08:27 | MHC.PC.OV ---
Vital Signs 12/05/24 08:30 Height 5 ft 6 in Weight 191 lb BMI 30.8 BP 124/72 Blood Pressure Location Lt brachial Position Sitting Respiration 14 Pulse 73 Pulse Source Pulse Oximeter Pulse Oximetry (%) 96 Oxygen Delivery Method Room Air Intake Visit Reasons: follow-up hypothyroidism Allergies No Known Allergies Allergy (Verified 09/29/24 16:07) Tobacco use date assessed: 12/05/24 Dental Screening Dental Screen Date: 09/29/24 HPI follow-up hypothyroidism HPI Details 59 y/o female presents to f/u hypothyroidism. Labs drawn 11/17/24. Reviewed labs with pt. Triglycerides 84. TC 189. LDL 123, improved from 147. HDL 50. TSH 0.14 uIU/mL. Free T4 1.46 ng/dL. Total T3 89 ng/dL. Pt notes it had been a long time since her last pap smear. Pt wants to discuss possible documentation for disability. Has complaints of back pain with lumbar radiculopathy. HPI Comments History of Present Illness Details Documentation assistance for Jone Lomeli MD, was provided by Gavin Oh, Sustainability Communicator on 12/05/2024 at 8:36 AM EST. I, Dr. Lomeli, have read, observed, and verified documentation. FOR[facility]LY [facility] Medical History (Updated 09/29/24 @ 16:47 by Gavin Oh) Fusion of lumbar spine Nicotine dependence, cigarettes, uncomplicated Arthritis Tubular adenoma Anxiety Asthma Fatty liver Hyperlipidemia Hypothyroidism Surgical History Hx of colonoscopy H/O foot surgery History of tonsillectomy History of tubal ligation History of cholecystectomy Family History Father No problems noted. Mother Lung cancer Smoker Maternal Grandmother Breast CA Maternal Grandfather Lung cancer Smoker Other Mental health disorder Social History (Updated 12/05/24 @ 08:40 by Kinga Reich CMA) Household Members: Spouse and Family Housing: House Alcohol intake: former Patient Tobacco Use Status: Current everyday Tobacco user Tobacco use type: Cigarette Cigarettes Per Day: 20 Years Smoked: 43 Packs per year/per ci.00 e-Cigarette/Vaping Use: Never Used Second Hand Smoke Exposure: No Use of substances other than those prescribed or required for medical reasons: No service: No Current occupational status: employed 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 1. Little interest or pleasure in doing things: not at all 2. Feeling down, depressed, or hopeless: not at all 3. Trouble falling or staying asleep, or sleeping too much: nearly every day 4. Feeling tired or having little energy: several days 5. Poor appetite or overeating: several days 6. Feeling bad about yourself - or that you are a failure or have let yourself or your family down: not at all 7. Trouble concentrating on things, such as reading the newspaper or watching television: not at all 8. Moving or speaking so slowly that other people could have noticed. Or the opposite - being so fidgety or restless that you have been moving around a lot more than usual: not at all 9. Thoughts that you would be better off or of hurting yourself in some way: not at all Total score: 5 Depression Screening Interpretation: Positive Depression Screening Done: Yes 92777 - PHQ-9 Billing: Yes Source: Developed by Drs. Lul Lerma, Chayito Dumont, Rambo Gordillo and colleagues, with an educational justus from [employer]. Thrive Questionnaire Date Thrive assessed: 12/05/24 I am a: Patient What is your living situation today?: I have a steady place to live Within the past 12 months, did the food you bought not last and you didn't have the money to get more?: Never true Within the past 12 months, did you worry whether your food would run out before you got money to buy more?: Never true Do you have trouble paying for medicines?: No Do you have trouble getting transportation to medical appointments?: No Do you have trouble paying your heating and electricity bill?: No Do you have trouble taking care of your child, family member or friend?: No Do you have trouble with day-to-day activities such as bathing, preparing meals, shopping, managing finances, etc.?: No Are you currently unemployed and looking for a job?: Yes Are you interested in more education?: No Please select the resources that you would like help with: Job search/training Currently or been in a relationship where the following occur: I choose not to answer THRIVE Score: 0 AUDIT C Alcohol Use Questionnaire (AUDIT-C) 3. How often do you have six or more drinks on one occasion?: Never Total Score: 0 MADI-7 AMB Questionnaire MADI-7 Date MADI - 7 assessed: 09/29/24 Source: Developed by Drs. Lul Lerma, Chayito Dumont, Rambo Gordillo and colleagues, with an educational justus from [employer]. Review of Systems Const Denies chills, Denies fatigue, Denies fever(s), Denies headache(s) and Denies weakness ENT Denies dizziness and Denies headache(s) Card Denies dyspnea Resp Denies cough, Denies dyspnea, Denies wheezing and Denies other (shortness of breath) Musc Denies numbness and Denies tingling Neuro Denies dizziness, Denies headache(s), Denies numbness, Denies tingling and Denies weakness Psych Denies anxiety and Denies depression Endo Denies fatigue Aller/Immun Denies wheezing Physical exam (Primary Care) Vital Signs: Last Vital Signs Pulse 73 12/05/24 08:30 Resp 14 12/05/24 08:30 BP 124/72 12/05/24 08:30 Pulse Ox 96 12/05/24 08:30 Oxygen Delivery Method Room Air 12/05/24 08:30 BMI result Body Mass Index 30.8 Tobacco/Smoking Status: Tobacco use Status Tobacco use date assessed 12/05/24 12/05/24 08:30 Patient Tobacco Use Status Current everyday Tobacco 12/05/24 08:40 Tobacco use type Cigarette 12/05/24 08:40 e-Cigarette/Vaping Use Never Used 12/05/24 08:40 PHQ-9: PHQ-9 Score PHQ-9: Total score 5 12/05/24 08:41 Depression Screening Interpretation: Positive Thrive Assessment: Date of Thrive Assessment Date Thrive assessed 12/05/24 12/05/24 08:41 Currently or been in a relationship where the following occur: I choose not to answer Const General: well developed; No acute distress Nutritional Appearance: well nourished Orientation/consciousness: patient oriented x3 HENMT Head: Yes normocephalic and Yes atraumatic Eyes General: appearance normal, both eyes and all related structures Pupils: Equal, round and reactive pupils present EOM: EOMs intact bilaterally Resp Effort & Inspection: normal respiratory effort Auscultation: clear to auscultation bilaterally Cardio Rate: regular rate Rhythm: regular rhythm Heart sounds: S1 normal heart sound present, S2 normal heart sound present, no gallops, no murmurs and no rubs Neuro General: patient oriented x3 and gait normal Cranial nerves: Yes Equal, round and reactive pupils present Psych Affect: normal affect Coding Level of Care Code Est Pt Level 4 (38109) Diagnoses Hypothyroidism E03.9 Hyperlipidemia E78.5 Screening for cervical cancer Z12.4 Lumbar radiculopathy M54.16 Additional Codes PHQ-9 - 97542 - PHQ-9 Billing: Yes ([id number]) Assessment & Plan Assessment & Plan (1) Hypothyroidism: Code(s): E03.9 - Hypothyroidism, unspecified Category: Medical Plan: TSH?remains?suppressed?on?levothyroxine?200?mcg?daily Will?decrease?levothyroxine?to?175?mcg?daily We?can?follow-up?on?thyroid?hormone?levels?at?a?subsequent?visit (2) Hyperlipidemia: Code(s): E78.5 - Hyperlipidemia, unspecified Category: Medical Plan: LDL?cholesterol?is?improved?but?still?above?goal?of?less?than?100 Will?add?Zetia Continue?diet?low?in?saturated?fats?and?cholesterol We?can?follow-up?on?this?at?a?subsequent?visit (3) Screening for cervical cancer: Code(s): Z12.4 - Encounter for screening for malignant neoplasm of cervix Category: Medical Plan: Patient?has?not?had?cervical?cancer?screening?in?years. Referred?to?OBGYN?for screening?for?cervical?cancer; Pap?smears (4) Lumbar radiculopathy: Code(s): M54.16 - Radiculopathy, lumbar region Category: Medical Plan: Ongoing?low?back?pain?with?radicular?symptoms She?can?schedule?an?appointment?in?a?couple?weeks?to?review?and?discuss?paperwork?for?disability. Orders: Referrals CONTENT ENGINEER Referral Z12.4 - Encounter for screening for malignant neoplasm of cervix Medications: New ezetimibe (Zetia) 10 mg PO DAILY 90 tabs 3RF 90 days Changed From levothyroxine 200 mcg PO DAILY 90 days 90 tabs 3RF To levothyroxine 175 mcg PO DAILY 90 tabs 3RF 90 days
[2024-12-05 08:30] VITALS: BP 124/72; PULSE 73; RESP 14; O2SAT 96; BMI 30.8
--- OUTSIDE RECORDS SUMMARY | 2024-12-05 08:41 | XMS_ITS | Clinical Summary ---
Author Organization [facility], Address [address] [place] [address] Phone Care Team Providers Care Range Mounter Name Role Phone Unavailable Primary Care Provider [...] TAKE DIRECTED ON PACKAGE 4 Active Creon [id number] units capsule delayed-release particles 1 CAP ORALLY [...] Colonoscopy 01/20/2013 Colorectal Cancer Screening: Sigmoidoscopy 01/20/2013 Pneumococcal Vaccine: 50+ Ye ars (1 of 1 - PCV) 01/20/2014 Influenza Vaccine (Season Ended) 2025 Hepatitis B Vaccine Aged Out No longe r eligible based on patient's age to [place] [id number] [facility]
== END 2024-12-05 08:44 | disposition home or self-care (01) ==
PROVIDERS: PCP Family Medicine; Visit Provider Family Medicine
DX: E03.9 Hypothyroidism, unspecified (principal); E78.5 Hyperlipidemia, unspecified; Z12.4 Encounter for screening for malignant neoplasm of cervix; M54.16 Radiculopathy, lumbar region

== ENCOUNTER → 2024-12-05 08:21 | Outpatient (BNVA) | payer OTHER, SELFPAY | PROVIDERS: PCP Family Medicine; Visit Provider Family Medicine | DX: E03.9 Hypothyroidism, unspecified (principal); E78.5 Hyperlipidemia, unspecified; M54.16 Radiculopathy, lumbar region; Z79.899 Other long term (current) drug therapy | CPT/HCPCS: 96127 ==

== ENCOUNTER → 2024-12-20 15:38 | Outpatient (BNVA) | payer OTHER, SELFPAY | PROVIDERS: PCP Family Medicine; Visit Provider Family Medicine | DX: Z13.89 Encounter for screening for other disorder (principal) ==

== ENCOUNTER 2024-12-23 11:19 | Outpatient (AMB) | payer OTHER, SELFPAY ==
--- NOTE | 2024-12-23 11:34 | MHC.OFFVIS ---
Vital Signs 12/23/24 11:44 Height 5 ft 6 in Weight 195 lb BMI 31.5 BP 116/68 Blood Pressure Location Rt brachial Position Sitting Pulse 82 Pulse Source Pulse Oximeter Pulse Oximetry (%) 97 Oxygen Delivery Method Room Air Intake Visit Reasons: FUV, review US results Intake Note: ESTABLISHED PATIENT for mgmt of CIC, bloating, hepatosteatosis. CC; Intermittent RUQ and R flank discomfort and swelling. Pt is actively working with their insurance company to manage their financials and getting their linzess vs their amitiza. Pt has not been having as positive of results with the amitiza as she had with the linzess. However, she is not able to afford the copay with the linzess. Windows Application Developer Required: No Accompanied by: Self / Same As Patient Allergies No Known Allergies Allergy (Verified 12/23/24 11:35) HPI HPI FUV, review US results: Details: LAST VISIT: Constipation Pancreatic insufficiency IBS (irritable bowel syndrome) Status post colonoscopy Alcohol induced fatty liver Plan Patient can continue Creon and Linzess. Will send patient for liver ultrasound with elastography. Her liver enzymes have been normal. Patient is avoiding alcohol. Lost 28 lb since last visit. Continue healthy diet. Avoid dietary triggers and late night snacking. I will see patient in 1 year. Patient will call me sooner if she will have any GI concerning symptoms. He is agreeable to this plan and verbalizes understanding of instructions he was given the opportunity to ask questions and all questions answered. ? Thank you for allowing me to participate in her care Orders Orders US abdomen comp w elastography 09/11/23 R79.89 Medications Changed Changed From owsghg-yxqhggyj-uajzmqh 36,000-114,000- 180,000 unit (Creon) administer with meals and/or snacks 1 cap PO QID 120 caps 3RF K86.89 Changed To rszygs-vpyaxwgx-vwnieha 36,000-114,000- 180,000 unit (Creon) administer with meals and/or snacks 1 cap PO QID 3 months 360 caps 3RF K86.89 Refilled linaclotide (Linzess) 145 mcg PO DAILY 90 caps 4RF K59.04 TODAY'S VISIT Patient is here today for follow-up and to discuss ultrasound of abdomen with liver elastography. Results discussed with patient. Patient was found to have normal elastography with no likelihood of liver disease at this time. Patient is continuing to be sober and have not been drinking. Patient is also doing better changing her diet. Patient reports that Amitiza is not as good as Linzess. Patient is willing to try it and we send it to the pharmacy again. Hopefully patient will be able to get a PA. Patient reports that she had a co-pay of 1600 dollars for 3 months of supply. Patient is still taking Creon, denies any abdominal bloating. Patient denies dyspepsia, dysphagia or odynophagia. Denies melena, hematochezia, unintentional weight loss or ribbon like stools. Patient denies any other GI concerning symptoms. Reports right flank pain radiating to her lower back. Patient will be following with PCP [facility] Medical History Fusion of lumbar spine Nicotine dependence, cigarettes, uncomplicated Arthritis Tubular adenoma Anxiety Asthma Fatty liver Hyperlipidemia Hypothyroidism Surgical History History of spinal fusion Hx of colonoscopy H/O foot surgery History of tonsillectomy History of tubal ligation History of cholecystectomy Family History Father No problems noted. 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 Current occupational exposures/hazards: No Sexual orientation: Unable to collect Gender identity: Unable to collect Cognitive needs: No Hearing needs: No Vision needs: No Review of Systems Const Denies weight gain and Denies weight loss ENT Reports no additional complaints, Denies dysphagia and Denies odynophagia Card Reports no additional complaints Resp Reports no additional complaints GI Denies abdominal pain, Denies belching, Denies melena, Denies bloating, Denies change in bowel habits, Denies dysphagia, Denies excessive flatus, Denies dyspepsia, Denies heartburn, Denies diarrhea, Denies loose stools, Denies nausea, Denies odynophagia and Denies vomiting Musc Reports no additional complaints Neuro Reports no additional complaints Psych Reports no additional complaints Endo Reports no additional complaints Physical Exam Vital Signs: Last Vital Signs Pulse 82 12/23/24 11:44 BP 116/68 12/23/24 11:44 Pulse Ox 97 12/23/24 11:44 Oxygen Delivery Method Room Air 12/23/24 11:44 BMI result Body Mass Index 31.5 Const General: healthy appearing, no acute distress and well developed Nutritional Appearance: well nourished Orientation/consciousness: patient oriented x3 Resp Effort & Inspection: normal respiratory effort, able to speak in complete sentences, no tracheal deviation and symmetric chest movement Auscultation: clear to auscultation bilaterally Cardio Rate: regular rate GI Inspection: Yes normal to inspection, No distended and Yes obesity Palpation (GI): Soft to palpation, not firm, nontender and No hepatosplenomegaly present Auscultation: normal bowel sounds General: Yes no CVA tenderness Back/Spine/Pelvis Back: no CVA tenderness Skin General skin exam: elasticity normal, turgor normal and dry skin Neuro General: patient oriented x3 Psych Appearance: grossly normal Mental Status: mental status grossly normal Results Reviewed Results Reviewed: ABDOMINAL ULTRASOUND WITH ELASTOGRAPHY FINDINGS: Liver: The right lobe of the liver measures 18.1 cm in size. The left lobe of the liver measures 8.6 cm in size. The liver demonstrates normal homogeneous echotexture. No focal mass or intrahepatic biliary ductal dilatation is identified. There is normal hepatopedal flow in the portal vein. Ultrasound elastography of the liver was performed with 10 separate measurements of the liver parenchyma with the patient in the supine position. Measurements were obtained approximately 2 cm below Tennille's capsule and perpendicular to the capsule. Images are of satisfactory quality. The median shear wave velocity is 1.11 m/s. The interquartile range/median (IQR/median) is 0.12. Gallbladder and biliary tree: The gallbladder is surgically absent. The common bile duct is normal in caliber measuring 5 mm. Kidneys: The right kidney measures 11.2 cm in length. The left kidney measures 11.8 cm in length. The right kidney is unremarkable. There is a 6 x 4 x 6 mm cyst at the upper pole of the left kidney. A 6 x 4 x 3 mm echogenic focus is noted at the upper pole of the left kidney which could represent a tiny angiomyolipoma. There is no hydronephrosis. Pancreas: The pancreatic head, neck, and body are unremarkable. The pancreatic tail is obscured by bowel gas. Spleen: The spleen is enlarged, measuring 14.4 cm in length. Abdominal aorta and inferior vena cava: The visualized portions of the abdominal aorta and inferior vena cava are normal in caliber. There is no free fluid in the abdomen. US/US abdomen comp w elastography IMPRESSION: 1. Splenomegaly. 2. Possible tiny 6 x 4 x 3 mm angiomyolipoma at the upper pole of the left kidney. The median shear wave velocity in the liver is 1.11 m/s, corresponding to a median liver stiffness of 3.7 kPa. The IQR/median value is 0.12. This is indicative of a quality data set. Findings are indicative of a normal elastography value with a low likelihood of severe fibrosis or cirrhosis. Assessment & Plan Assessment & Plan (1) Constipation: Code(s): K59.00 - Constipation, unspecified Category: Medical Qualifiers: Constipation type: slow transit constipation Qualified Code(s): K59.01 - Slow transit constipation (2) Pancreatic insufficiency: Code(s): K86.89 - Other specified diseases of pancreas (3) IBS (irritable bowel syndrome): Code(s): K58.9 - Irritable bowel syndrome, unspecified Qualifiers: Irritable bowel syndrome type: without diarrhea Qualified Code(s): K58.9 - Irritable bowel syndrome, unspecified (4) Alcohol induced fatty liver: Code(s): K70.0 - Alcoholic fatty liver Plan We will repeat liver panel, liver fibrosis panel and ultrasound in 6 months. Patient will try again to see if Linzess will be covered by her insurance. Continue Creon. Continue avoiding dietary triggers in late night snacking. Low fat, low carb and low-salt and high-protein diet recommended. Patient received informational package on diet for patients with fatty liver disease. She will return in our office in 6 months, sooner on as needed basis. Patient is agreeable to this plan and verbalizes understanding of instructions. She was given the opportunity to ask questions and all questions answered. Thank you for allowing me to participate in her care Orders: Orders Liver Panel 6 Months R74.01 - Elevation of levels of liver transaminase levels US abdomen mayer w elastography 6 Months K76.0 - Fatty (change of) liver, not elsewhere classified Liver Fibrosis Pnl 6 Months K76.0 - Fatty (change of) liver, not elsewhere classified Medications: New linaclotide (Linzess) 145 mcg PO DAILY 30 caps 2RF Coding Level of Care Code Est Pt Level 4 (31382) Complex EM visit Add On G2211 Diagnoses Slow transit constipation K59.01 Constipation type: slow transit constipation Pancreatic insufficiency K86.89 Irritable bowel syndrome without diarrhea K58.9 Irritable bowel syndrome type: without diarrhea Alcohol induced fatty liver K70.0 Time Spent (min) 35 Comment 25 minutes spent with patient and additional 10 minutes spent reviewing her records
--- OUTSIDE RECORDS SUMMARY | 2024-12-23 11:42 | XMS_ITS | Clinical Summary ---
Author Organization [facility], Address [address] [place] [address] Phone Care Team Providers Care Maintenance Helper Name Role Phone Unavailable Primary Care Provider [...] TAKE DIRECTED ON PACKAGE 4 Active Creon [id number] units capsule delayed-release particles 1 CAP ORALLY [...] complete [place] [id number] [facility]
[2024-12-23 11:44] VITALS: BP 116/68; PULSE 82; O2SAT 97; BMI 31.5
== END 2024-12-23 12:03 | disposition home or self-care (01) ==
PROVIDERS: PCP Family Medicine; Visit Provider Nurse Practitioner Family
DX: K59.01 Slow transit constipation (principal); K86.89 Other specified diseases of pancreas; K58.9 Irritable bowel syndrome, unspecified; K70.0 Alcoholic fatty liver
CPT/HCPCS: 99214; G2211

== ENCOUNTER 2025-05-31 08:06 | Outpatient (REF) | payer OTHER, SELFPAY | END 2025-05-31 08:07 | disposition home or self-care (01) | LOC: HO.LNP 08:06 | PROVIDERS: PCP Family Medicine; Visit Provider Advanced Practice Midwife | DX: Z01.419 Encounter for gynecological examination (general) (routine) without abnormal findings (principal); Z11.51 Encounter for screening for human papillomavirus (HPV); Z98.51 Tubal ligation status | CPT/HCPCS: 87626; 88175; 99386 ==

== ENCOUNTER 2025-05-31 08:06 | Outpatient (AMB) | payer OTHER, SELFPAY ==
--- OUTSIDE RECORDS SUMMARY | 2025-05-31 08:09 | XMS_ITS | Clinical Summary ---
Author Organization [facility], Address [address] [place] [address] Phone Care Team Providers Care Web Page Designer Name Role Phone Unavailable Primary Care Provider [...] TAKE DIRECTED ON PACKAGE 4 Active Creon [id number] units capsule delayed-release particles 1 CAP ORALLY [...] of 1 - PCV) 01/20/2014 Influenza Vaccine (#1) 2025 Hepatitis B Vaccine Aged Out No longe r eligible based on patient's age to [place] [id number] [facility]
--- OUTSIDE RECORDS SUMMARY | 2025-05-31 08:10 | XMS_ITS | Clinical Summary ---
Author Organization [facility] Address [address] [place] [address] Phone Care Team Providers Care Tissue Technician Name Role Phone Phong Edge MD Primary Care Provider Allergies No known active allergies Medications levothyroxine (SYNTHROID) 175 MCG tablet Take 1 tablet by mouth every morning. on an empty stomach Active PARoxetine (PAXIL) 40 MG tablet Take 40 mg by mouth daily. 04/11/2018 Active Family History Medical History Relation Comments Diabetes Sister Cancer Unspecified Diabetes Unspecified Heart disease Unspecified Infl. arthritis Unspecified Relation Status Comments Sister Unspecified Social History Tobacco Use Types Packs/Day Years Used Date Smoking Tobacco: Every Day Cigarettes Smokeless Tobacco: Current Alcohol Use Standard Drinks/Week Comments Yes 0 (1 standard drink = 0.6 oz pur e alcohol) social Education Answer Date Recorded Are you interested in more education? Not on caroline e 12/05/2022 Are you concerned about learning? Not on file 12/05/2022 No 12/05/2022 No 12/05/2022 Digital Access Answer Date Recorded No 01/03/2023 No 01/03/2023 Reliable internet access at home? Not on file 01/03/2023 Device with a working camera? Not on file Comments Unknown Sex and Gender Information Value Date Recorded Sex Assigned at Not on file Legal Sex Female 10:34 PM EDT Gender Identity Not on file Sexual Orientation Not on file Last Filed Vital Signs Vital Sign Reading Time Taken Comments Blood Pressure 131/79 04/23/2018 1:00 PM EDT Pulse 82 04/23/2018 1:00 PM EDT Temperature - - Respiratory Rate - - Oxygen Saturation - - Inhaled Oxygen Concentration - - Weight 105.7 kg (233 lb) 04/23/2018 1:00 PM EDT Height 165.1 cm (5' 5 ) 04/23/2018 1:00 PM EDT Body Mass Index 38.77 04/23/2018 1:00 PM EDT Plan of Treatment Health Maintenance Due Date Last Done Comments Adult Td,Tdap Booster 1964 LIPID PANEL 1964 TSH LEVEL 1964 DEPRESSION SCREENING 1976 SMOKING Hx and SMOKELESS TOBACCO SCREENING 01/20/1977 HEPATITIS C SCREENING 01/20/1982 HIV ONE-TIME SCREENING (18-6 5 YEARS) 01/20/1982 PNEUMOCOCCAL VACCINES (50+ years) (1 of 2 - PCV) 01/20/1983 PAP SMEAR 01/20/1985 MAMMOGRAM 2004 COLOGUARD 01/20/2009 COLONOSCOPY 01/20/2009 COLORECTAL CANCER SCREENING 01/20/2009 FIT TEST 01/20/2009 FOBT 01/20/2009 SIGMOIDOSCOPY 01/20/2009 VIRTUAL COLONOSCOPY 01/20/2009 ZOSTER VACCINES (1 of 2) 01/20/2014 INFLUENZA VACCINE (#1) 2025 0, 05/09/2019, 04/26/2018 COVID-19 VACCINE (2 - 2024-2 6 season) 2025 10/06/2020 RSV VACCINE (1 - 1-dose 75+ series) 01/20/2039 HEPATITIS A VACCINES Aged Out No long er eligible based on patient's age to complete this topic HIB VACCINES Aged Out No longer eligi ble based on patient's age to complete this topic MENINGOCOCCAL VACCINES (ACWY) Aged Out No longer eligible based on patient's age to complete this topic MENINGOCOCCAL VACCINES (B) Aged Out N o longer eligible based on patient's age to complete this topic Medical Devices Not on file Insurance [facility] PPO BLUE [place] OUT OF STATE PPO BLUE [place] OUT OF STATE PPO BLUE [place] OUT OF STATE PPO BLUE [place] OUT OF STATE PPO BLUE [place] OUT OF STATE PPO OUT [place] [address] [place] [id number] OUT OF [facility] PPO BLUE CROSS OUT OF STATE PPO Care Teams Tissue Technician Relationship Specialty Start Date End Date Phong Edge MD [address] [place] [address] [place] [address] PCP - General 08/13/17 Additional Source Comments The information contained in this document represents components of the legal health record. It is not the complete legal health record.[facility]
[2025-05-31 08:13] VITALS: BP 114/70; BMI 32.0
--- NOTE | 2025-05-31 08:13 | MHC.OFFVIS ---
Vital Signs 05/31/25 08:13 Height 5 ft 6 in Weight 198 lb BMI 32.0 BP 114/70 Intake Visit Reasons: New patient Annual Intake Note: Last pap many yrs ago hx HPV Manager Technical Support: Manager Technical Support Present (Kareen) Allergies No Known Allergies Allergy (Verified 05/31/25 08:13) HPI Comments Details: Patient is a postmenopausal woman presenting for her new patient annual remelt sugar boiler examination. Hand Patcher concerns: none. Currently not sexually active due to back problems. Denies any vaginal dryness or irritation. STI testing offered; she declined. Attempting to eat a healthy diet with calcium and vitamin D and stays active with exercise-walking. Last pap smear; unknown, history of HPV. Last mammogram; 2024. Colonoscopy is UTD. Family history of breast cancer. [facility] Medical History Osteoarthritis Fusion of lumbar spine Nicotine dependence, cigarettes, uncomplicated Arthritis Tubular adenoma Anxiety Asthma Fatty liver Hyperlipidemia Hypothyroidism Surgical History History of spinal fusion Hx of colonoscopy H/O foot surgery History of tonsillectomy History of tubal ligation History of cholecystectomy Family History Father No problems noted. 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 Current occupational exposures/hazards: No Sexual orientation: Unable to collect Gender identity: Unable to collect Cognitive needs: No Hearing needs: No Vision needs: No Female Reproductive History Menstrual Total pregnancies: 2 Full term: 1 Number of Living Children: 1 Ab spontaneous: 1 History of abnormal pap smear: Yes (hx HPV) Date of Mammogram: 08/15/24 (Birad 3) Review of Systems Const All systems reviewed & are unremarkable except as noted in HPI and below Reports as per HPI Eyes Reports no additional complaints ENT Reports no additional complaints Card Reports no additional complaints Resp Reports no additional complaints GI Reports as per HPI and Reports no additional complaints Reports as per HPI Musc Reports no additional complaints Skin/Breast Reports as per HPI Neuro Reports no additional complaints Psych Reports no additional complaints Endo Reports no additional complaints Aaron/Lymph Reports no additional complaints Aller/Immun Reports no additional complaints Physical Exam Vital Signs: Last Vital Signs BP 114/70 05/31/25 08:13 BMI result Body Mass Index 32.0 Const General: cooperative, healthy appearing, no acute distress, well developed and alert Orientation/consciousness: patient oriented x3 HEENT Head: Yes normal to inspection Eyes General: appearance normal, both eyes and all related structures Neck Neck: Yes normal visual inspection Thyroid: Thyroid normal Chest Chest palpation & inspection: normal inspection of the chest and other (no puckering, dimpling, peau de orange, retraction, discharge, masses) Breast/axilla inspection: normal inspection of the breasts Breast/axilla palpation: normal palpation of the breasts Resp Effort & Inspection: normal respiratory effort GI Inspection: Yes normal to inspection Palpation (GI): Soft to palpation Rectal Exam - Female: deferred General: Yes bladder normal to palpation External Female Exam: normal external appearance and normal appearance of the urethra Speculum Exam - Vagina: normal appearance of the vagina, normal palpation, normal vaginal discharge and vagina atrophic Speculum Exam - Cervix: normal appearance of the cervix, normal palpation and Other cervical findings present (Bled slightly with Pap) Bimanual exam- vagina & uterus: normal bimanual exam, normal palpation, uterine size normal, bladder normal to palpation, normal palpation and non-tender Bimanual Exam- Adnexa, other: no masses Skin General skin exam: no rashes or lesions noted Rashes: no rashes Neuro General: patient oriented x3 Cognition (Neuro): normal cognition Extrem General: Yes normal to inspection Psych Attitude: cooperative Thought process: Normal thought process present Assessment & Plan Assessment & Plan (1) Encounter for well woman exam with routine gynecological exam: Code(s): Z01.419 - Encounter for gynecological examination (general) (routine) without abnormal findings Category: Medical Plan Discussed: Current recommendations for pap smears per ASCCP guidelines. Breast awareness, periodic self breast exams and yearly mammogram. Maintain a healthy lifestyle, well balanced diet including Calcium 1,200 mg and Vitamin D 600 IU daily, and routine exercise. Contact the office with any postmenopausal bleeding. Patient verbalizes understanding and agrees to the plan of care. She was given opportunity to ask questions and all questions were answered to the best of my ability. RTO in 1 year for annual remelt sugar boiler exam. This note is constructed using voice recognition software. While every effort has been made to ensure accuracy, temperature inspector errors may have been included. Orders: Orders HPV High risk Today Z01.419 - Encounter for gynecological examination (general) (routine) without abnormal findings Pap Smear Today Z01.419 - Encounter for gynecological examination (general) (routine) without abnormal findings Coding Level of Care Code New Pt Prev Care 40-64y(61066) Diagnoses Encounter for well woman exam with routine gynecological exam Z01.419
== END 2025-05-31 09:06 | disposition home or self-care (01) ==
LOC: HO.HWS 08:07
PROVIDERS: PCP Family Medicine; Visit Provider Advanced Practice Midwife
DX: Z01.419 Encounter for gynecological examination (general) (routine) without abnormal findings (principal)
CPT/HCPCS: 99386; 99459

== ENCOUNTER 2025-06-19 07:08 | Outpatient (REF) | payer OTHER, SELFPAY ==
--- NOTE | ~2025-06-19 | US_ITS ---
EXAMINATION: US ABDOMEN LIMITED WITH LIVER ELASTOGRAPHY CLINICAL INFORMATION: Fatty liver COMPARISON: Ultrasound abdomen 11/17/2024 TECHNIQUE: Real-time imaging of the abdominal viscera. Noninvasive ultrasound liver fibrosis assessment is performed using Rosario ElastPQ point quantification shear wave elastography (pSWE) with a 5 MHz transducer. Multiple elastography samples are obtained. FINDINGS: PANCREAS: The visualized pancreatic head and body are normal in appearance. The remainder of the pancreas is obscured from visualization by the overlying bowel gas. LIVER: The liver demonstrates normal size, contour. Mild increased parenchymal echogenicity. No focal lesion or intrahepatic biliary duct dilatation. The right lobe measures 19.3 cm in length. The left lobe measures 19.7 cm in length. Main portal vein is hepatopedal flow. Shear wave elastography provides a median stiffness of 0.98 m/s (reference: normal median stiffness is 0.81 - 1.22 m/s). The IQR/median stiffness to assess sampling precision is 0.27 (reference: optimal IQR/median stiffness is under 0.3). GALLBLADDER: Status postcholecystectomy COMMON BILE DUCT: Normal in caliber measuring 0.7 cm in diameter. RIGHT KIDNEY: No hydronephrosis. No renal calculi or focal parenchymal lesions. The kidney measures 11.7 cm in maximum dimension. FREE FLUID: None seen. US/US abdomen mayer w elastography IMPRESSION: 1. . There is generalized increase in hepatic echotexture, consistent with fatty infiltration or hepatocellular disease. Please correlate clinically. No focal hepatic mass or intrahepatic biliary duct dilatation is seen. 2. Elastography: Median stiffness of 0.98 m/s (previously measuring 1.11 m/s *Liver Stiffness equal or less than 1.3 m/s: High probability of being normal. REFERENCE: Society of Radiologists in Ultrasound Liver Stiffness Thresholds (2020): LIVER STIFFNESS THRESHOLDS: *Liver Stiffness equal or less than 1.3 m/s: High probability of being normal. *Liver Stiffness less than 1.7 m/s: In the absence of other known clinical signs, rules out compensated advanced chronic liver disease. *Liver Stiffness 1.7-2.1 m/s: Suggestive of compensated advanced chronic liver disease but need further test for confirmation. *Liver Stiffness over 2.1 m/s: Rules in compensated advanced chronic liver disease. *Liver Stiffness over 2.4 m/s: Suggestive of clinically significant portal hypertension. QUALITY OF DATA SET: *IQR/Median value equal or less than 0.15 implies a quality data set. *IQR/Median value over 0.15 implies a poor quality data set. SIGNIFICANT CHANGE FROM PRIOR EXAM: Significant change if liver stiffness measurement is 10% or greater from prior exam. OTHER CONSIDERATIONS: The stage of liver fibrosis may be overestimated in the setting of acute hepatitis, liver inflammation, elevated liver function tests, hepatic vascular congestion, obstructive cholestasis, non-fasting state, and infiltrative diseases such as amyloidosis and lymphoma. In some patients with NAFLD, the liver stiffness thresholds for compensated advanced chronic liver disease may be lower. In causes other than viral hepatitis and NAFLD, liver stiffness thresholds are not well established. Electronically signed by: James Day MD 06/20/2025 10:58 AM [facility]
--- OUTSIDE RECORDS SUMMARY | 2025-06-19 07:11 | XMS_ITS | Clinical Summary ---
Author Organization [facility] Address [address] [place] [address] Phone Care Team Providers Care Supervisor Veneer Name Role Phone Phong Edge MD Primary [...] topic Medical Devices Not on file Insurance [facility] PPO BLUE [place]OSS OUT OF STATE PPO BLUE [place] OUT OF STATE PPO BLUE [place] OUT OF STATE PPO BLUE [place] OUT OF STATE PPO BLUE [place] OUT OF STATE PPO OUT OF [place] [address] [place] [address] OUT OF [facility] PPO BLUE CROSS OUT OF STATE PPO Care Teams Supervisor Veneer Relationship Specialty Start Date End Date Phong Edge MD [address] [place] [address] [place] [address] PCP - General 08/13/17 Additional Source Comments The information contained in this document represents components of the legal health record. It is not the complete legal health record.[facility]
--- OUTSIDE RECORDS SUMMARY | 2025-06-19 07:11 | XMS_ITS | Clinical Summary ---
Author Organization [facility], Address [address] [place] [address] Phone Care Team Providers Care Water Purifier Operator Name Role Phone Unavailable Primary Care Provider [...] TAKE DIRECTED ON PACKAGE 4 Active Creon [id number] units capsule delayed-release particles 1 CAP ORALLY [...] complete [place] [id number] [facility]
[2025-06-19 08:16] LABS: Alanine Aminotransferase 20 U/L (0-31); Albumin Level 4.6 g/dL (3.5-5.0); Alkaline Phosphatase 80 U/L (39-117); Aspartate Amino Transferase 25 U/L (5-31); Total Protein 7.1 g/dL (6.5-8.0)
[2025-06-27 17:38] LABS: FIB-ALT 15 U/L (6-29); FIB-Alpha-2-Macroglobulin 212 mg/dL (106-279); FIB-Apolipoprotein A1 178 mg/dL (101-198); FIB-GGT 20 U/L (3-65); FIB-Haptoglobin 124 mg/dL (43-212); FIB-Total Bilirubin 0.8 mg/dL (0.2-1.2); Liver Fibrosis Score 0.22; Liver Fibrosis Stage F0-F1; Nec Inflam Act Grade A0; Nec Inflam Act Score 0.04
== END 2025-06-19 07:09 | disposition home or self-care (01) ==
LOC: HO.US 07:08
PROVIDERS: PCP Family Medicine; Visit Provider Nurse Practitioner Family
DX: K76.0 Fatty (change of) liver, not elsewhere classified (principal); R74.01 Elevation of levels of liver transaminase levels
CPT/HCPCS: 36415; 76705; 76981; 80076; 81596

== ENCOUNTER 2025-07-12 09:30 | Outpatient (AMB) | payer OTHER, SELFPAY ==
--- NOTE | 2025-07-12 09:35 | A.OFFVIS_ITS ---
Vital Signs 07/12/25 09:40 Height 5 ft 6 in Weight 201 lb BMI 32.4 BP 126/60 Blood Pressure Location Rt brachial Position Sitting Pulse 76 Pulse Source Pulse Oximeter Pulse Oximetry (%) 98 Oxygen Delivery Method Room Air Intake Visit Reasons: FUV. R/S 05/11. Review US results. Intake Note: ESTABLISHED PATIENT for mgmt of NAFLD, constipation, + bloating. Chief Complaint; C/O occasional RUQ bloating and R flank pain. Pt denies any additional sx or concerns and states that she has been well overall. She is very happy with her response to the linzess. Stack Yield Engineer Required: No Accompanied by: Self / Same As Patient Allergies No Known Allergies Allergy (Verified 07/12/25 09:35) HPI HPI FUV. R/S 05/11. Review US results.: Details: LAST VISIT Constipation Pancreatic insufficiency IBS (irritable bowel syndrome) Alcohol induced fatty liver Plan We will repeat liver panel, liver fibrosis panel and ultrasound in 6 months. Patient will try again to see if Linzess will be covered by her insurance. Continue Creon. Continue avoiding dietary triggers in late night snacking. Low fat, low carb and low-salt and high-protein diet recommended. Patient received informational package on diet for patients with fatty liver disease. She will return in our office in 6 months, sooner on as needed basis. Patient is agreeable to this plan and verbalizes understanding of instructions. She was given the opportunity to ask questions and all questions answered. ? Thank you for allowing me to participate in her care Orders Liver Panel 6 Months R74.01 US abdomen mayer w elastography 6 Months K76.0 Liver Fibrosis Pnl 6 Months K76.0 New linaclotide (Linzess) 145 mcg PO DAILY 30 caps 2RF TODAY'S VISIT Patient is here today for follow-up. Patient is accompanied by her . Patient reports that she has been doing fairly well. Patient had back surgery and it is slowly recuperating. Patient gained few lb as she is not mobile and still can not exercise due to pain in her back. Ultrasound and lab work discussed with patient. Improved elastography. Patient reports that she has been feeling well. She is taking Linzess daily and is able to have a normal bowel movement. Patient is taking Creon with meals. Denies any abdominal pain or discomfort. Denies any melena, hematochezia, unintentional weight loss or ribbon like stools. Patient denies any dyspepsia, dysphagia or odynophagia PFSH Medical History Osteoarthritis Fusion of lumbar spine Nicotine dependence, cigarettes, uncomplicated Arthritis Tubular adenoma Anxiety Asthma Fatty liver Hyperlipidemia Hypothyroidism Surgical History History of spinal fusion Hx of colonoscopy H/O foot surgery History of tonsillectomy History of tubal ligation History of cholecystectomy Family History Father No problems noted. 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 Current occupational exposures/hazards: No Sexual orientation: Unable to collect Gender identity: Unable to collect Cognitive needs: No Hearing needs: No Vision needs: No Review of Systems Const Denies weight gain and Denies weight loss ENT Reports no additional complaints, Denies dysphagia and Denies odynophagia Card Reports no additional complaints Resp Reports no additional complaints GI Denies abdominal pain, Denies belching, Denies melena, Denies bloating, Denies change in bowel habits, Denies dysphagia, Denies excessive flatus, Denies dyspepsia, Denies heartburn, Denies diarrhea, Denies loose stools, Denies nausea, Denies odynophagia and Denies vomiting Reports no additional complaints Musc Reports no additional complaints Neuro Reports no additional complaints Psych Reports no additional complaints Endo Reports no additional complaints Physical Exam Const General: healthy appearing, no acute distress and well developed Nutritional Appearance: well nourished and obese Orientation/consciousness: patient oriented x3 Resp Effort & Inspection: normal respiratory effort, able to speak in complete sentences, no tracheal deviation and symmetric chest movement Auscultation: clear to auscultation bilaterally Cardio Rate: regular rate GI Inspection: Yes normal to inspection, No distended and Yes obesity Palpation (GI): Soft to palpation, not firm, nontender and No hepatosplenomegaly present Auscultation: normal bowel sounds General: Yes no CVA tenderness Back/Spine/Pelvis Back: no CVA tenderness Skin General skin exam: elasticity normal, turgor normal and dry skin Neuro General: patient oriented x3 Psych Appearance: grossly normal Mental Status: mental status grossly normal Results Reviewed Results Reviewed: ABDOMINAL ULTRASOUND WITH LIVER ELASTOGRAPHY 06/19/2025 FINDINGS: PANCREAS: The visualized pancreatic head and body are normal in appearance. The remainder of the pancreas is obscured from visualization by the overlying bowel gas. LIVER: The liver demonstrates normal size, contour. Mild increased parenchymal echogenicity. No focal lesion or intrahepatic biliary duct dilatation. The right lobe measures 19.3 cm in length. The left lobe measures 19.7 cm in length. Main portal vein is hepatopedal flow. Shear wave elastography provides a median stiffness of 0.98 m/s (reference: normal median stiffness is 0.81 - 1.22 m/s). The IQR/median stiffness to assess sampling precision is 0.27 (reference: optimal IQR/median stiffness is under 0.3). GALLBLADDER: Status postcholecystectomy COMMON BILE DUCT: Normal in caliber measuring 0.7 cm in diameter. RIGHT KIDNEY: No hydronephrosis. No renal calculi or focal parenchymal lesions. The kidney measures 11.7 cm in maximum dimension. FREE FLUID: None seen. US/US abdomen mayer w elastography IMPRESSION: 1. . There is generalized increase in hepatic echotexture, consistent with fatty infiltration or hepatocellular disease. Please correlate clinically. No focal hepatic mass or intrahepatic biliary duct dilatation is seen. 2. Elastography: Median stiffness of 0.98 m/s (previously measuring 1.11 m/s Laboratory Tests 06/19/25 07:17 Total Bilirubin 1.0 Direct Bilirubin 0.3 AST 25 ALT 20 Alkaline Phosphatase 80 Liver Fibrosis Stage F0-F1 Assessment & Plan Assessment & Plan (1) Constipation: Code(s): K59.00 - Constipation, unspecified Category: Medical Qualifiers: Constipation type: slow transit constipation Qualified Code(s): K59.01 - Slow transit constipation (2) Pancreatic insufficiency: Code(s): K86.89 - Other specified diseases of pancreas (3) Irritable bowel syndrome: Code(s): K58.9 - Irritable bowel syndrome, unspecified Qualifiers: Irritable bowel syndrome type: with constipation Qualified Code(s): K58.1 - Irritable bowel syndrome with constipation (4) Alcoholic fatty liver: Code(s): K70.0 - Alcoholic fatty liver Plan Patient will continue low-fat, low-salt, low carb and high-protein diet. Patient does have a list of food that she should avoid at home. Continue Creon daily. Continue Linzess. Increase fluid intake and activity to promote better bowel motility. Will repeat complete ultrasound with liver elastography in 6 months as well as labs. Patient will see us in 6 months. She will call us if she will have any GI concerning symptoms. Patient is agreeable to this plan and verbalizes understanding of instructions. She was given the opportunity to ask questions and all questions answered. Thank you for allowing me to participate in her care Orders: Orders Liver Panel 6 Months R74.01 - Elevation of levels of liver transaminase levels US abdomen comp w elastography 6 Months R79.89 - Other specified abnormal findings of blood chemistry Platelet Count 6 Months R74.01 - Elevation of levels of liver transaminase levels Liver Fibrosis Pnl 6 Months K76.0 - Fatty (change of) liver, not elsewhere classified Medications: Refilled [id number] (pork) 36,000-114,000- 180,000 unit (Creon) 1 cap PO QID 400 caps 3RF K86.89 - Other specified diseases of pancreas Coding Level of Care Code Est Pt Level 4 (20498) Diagnoses Slow transit constipation K59.01 Constipation type: slow transit constipation Pancreatic insufficiency K86.89 Irritable bowel syndrome with constipation K58.1 Irritable bowel syndrome type: with constipation Alcoholic fatty liver K70.0 Time Spent (min) 35 Comment 25 minutes spent with patient and additional 10 minutes spent reviewing her records
[2025-07-12 09:40] VITALS: BP 126/60; PULSE 76; O2SAT 98; BMI 32.4
--- OUTSIDE RECORDS SUMMARY | 2025-07-12 10:25 | XMS_ITS | Clinical Summary ---
Author Organization [facility] Address [address] [place] [address] Phone Care Team Providers Care Maintenance Engineer Name Role Phone Phong Edge MD Primary [...] topic Medical Devices Not on file Insurance [facility] OUT [facility] PPO BLUE [place] OUT OF STATE PPO BLUE [place] OUT OF STATE PPO BLUE [place] OUT OF STATE PPO BLUE [place] OUT OF STATE PPO BLUE [place] OUT OF STATE PPO OUT OF [place] [address] [place] [address] OUT OF [facility] PPO BLUE [place] OUT OF STATE PPO Care Teams Maintenance Engineer Relationship Specialty Start Date End Date Phong Edge MD [address] [place] [address] [place] [address] PCP - General 08/13/17 Additional Source Comments The information contained in this document represents components of the legal health record. It is not the complete legal health record.[facility]
== END 2025-07-12 10:06 | disposition home or self-care (01) ==
LOC: HO.HGI 09:31
PROVIDERS: PCP Family Medicine; Visit Provider Nurse Practitioner Family
DX: K59.01 Slow transit constipation (principal); K86.89 Other specified diseases of pancreas; K58.1 Irritable bowel syndrome with constipation; K70.0 Alcoholic fatty liver
CPT/HCPCS: 99214

== ENCOUNTER → 2025-07-12 09:30 | Outpatient (BNVA) | payer OTHER, SELFPAY | PROVIDERS: PCP Family Medicine; Visit Provider Nurse Practitioner Family | DX: K59.01 Slow transit constipation (principal); K86.89 Other specified diseases of pancreas; K58.1 Irritable bowel syndrome with constipation; K70.0 Alcoholic fatty liver | CPT/HCPCS: 99212 ==